=== PATIENT | female | born 1995 | race Caucasian/White ===

== ENCOUNTER 2022-03-22 12:09 | Outpatient (CLI) | payer BC, SELFPAY ==
[2022-03-22 19:00] LABS: Hematocrit 48.3 % (37.0-47.0); Hemoglobin 15.5 g/dL (12.0-15.0); Mean Corpuscular HGB Conc 32.1 g/dl (32-36); Mean Corpuscular Hemoglobin 28.4 pg (26-34); Mean Corpuscular Volume 88.6 fl (80-100); Mean Platelet Volume 12.1 fl (7.4-10.4); Platelet Count Result 279 k/mm3 (150-375); Red Blood Count 5.45 M/mm3 (4.2-5.4); White Blood Count 12.2 K/mm3 (4.5-10.0)
[2022-03-22 19:13] LABS: Alanine Aminotransferase 31 U/L (6-35); Albumin Level 4.4 g/dL (3.5-5.1); Alkaline Phosphatase 101 U/L (38-126); Anion Gap 9 mmol/L (8-16); Aspartate Amino Transferase 35 U/L (14-36); Bilirubin,Total 0.6 mg/dL (0.2-1.3); Blood Urea Nitrogen 8 mg/dL (7-17); Calcium 9.1 mg/dL (8.4-10.2); Carbon Dioxide 24 mmol/L (22-30); Chloride 107 mmol/L (98-107); Cholesterol 177 mg/dL (0-200); Estimated Glomerular Filt Rate > 60; Glucose 87 mg/dL (65-110); HDL Direct 40 mg/dL; Potassium 4.1 mmol/L (3.4-5.0); Sodium 140 mmol/L (137-145); Triglycerides 222 mg/dL (<150)
[2022-03-22 19:24] LABS: LDL Cholesterol Direct 89 mg/dL
[2022-03-22 19:31] LABS: Hemoglobin A1C 4.8 % (<5.7)
[2022-03-22 19:37] LABS: Thyroid Stimulating Hormone 0.735 uIU/mL (0.465-4.680)
== END 2022-03-22 12:10 | disposition home or self-care (01) ==
PROVIDERS: PCP Family Medicine; Visit Provider Family Medicine
DX: O24.419 Gestational diabetes mellitus in pregnancy, unspecified control (principal); K58.9 Irritable bowel syndrome, unspecified
CPT/HCPCS: 36415; 80053; 80061; 83036; 84443; 85027

== ENCOUNTER 2022-04-07 14:16 | Outpatient (CLI) | payer BC, SELFPAY ==
[2022-04-20 18:52] LABS: Pancreatic Elastase, Stool >500 mcg/g
== END 2022-04-07 14:17 | disposition home or self-care (01) ==
LOC: ANHBWCLAB 14:18
PROVIDERS: PCP Family Medicine; Visit Provider Family Medicine
DX: D75.1 Secondary polycythemia (principal)
CPT/HCPCS: 82653

== ENCOUNTER 2022-12-18 13:12 | Outpatient (CLI) | payer BC, SELFPAY ==
[2022-12-18 19:23] LABS: Hematocrit 47.1 % (37.0-47.0); Hemoglobin 14.9 g/dL (12.0-15.0); Mean Corpuscular HGB Conc 31.6 g/dl (32-36); Mean Corpuscular Hemoglobin 28.5 pg (26-34); Mean Corpuscular Volume 90.1 fl (80-100); Mean Platelet Volume 11.6 fl (7.4-10.4); Platelet Count Result 227 k/mm3 (150-375); Red Blood Count 5.23 M/mm3 (4.2-5.4); Red Cell Distribution Width 12.9 % (11.5-14.5); White Blood Count 7.7 K/mm3 (4.5-10.0)
[2022-12-18 19:29] LABS: Alanine Aminotransferase 53 U/L (6-35); Albumin Level 4.5 g/dL (3.5-5.1); Alkaline Phosphatase 87 U/L (38-126); Anion Gap 10 mmol/L (8-16); Aspartate Amino Transferase 61 U/L (14-36); Bilirubin,Total 0.7 mg/dL (0.2-1.3); Blood Urea Nitrogen 6 mg/dL (7-17); Calcium 9.2 mg/dL (8.4-10.2); Carbon Dioxide 24 mmol/L (22-30); Chloride 105 mmol/L (98-107); Estimated Glomerular Filt Rate > 60; Glucose 85 mg/dL (65-110); Potassium 3.9 mmol/L (3.4-5.0); Sodium 139 mmol/L (137-145)
[2022-12-18 23:41] LABS: Hemoglobin A1C 4.7 % (<5.7)
[2022-12-20 21:36] LABS: Insulin Level Total 27.7 uIU/mL (<=18.4)
[2022-12-28 00:47] LABS: Free Insulin 22.2 uIU/mL (1.5-14.9)
== END 2022-12-18 13:13 | disposition home or self-care (01) ==
LOC: ANHBWCLAB 13:13
PROVIDERS: PCP Nurse Practitioner Adult Health; Visit Provider Nurse Practitioner Adult Health
DX: R63.5 Abnormal weight gain (principal); Z86.32 Personal history of gestational diabetes
CPT/HCPCS: 36415; 80053; 83036; 83525; 83527; 84443; 85027

== ENCOUNTER 2023-02-28 14:11 | Emergency (ER) | payer BC, SELFPAY ==
[2023-02-28 14:22] VITALS: BP 126/71; PULSE 92; RESP 18; TEMP 36.7; O2SAT 99
--- NOTE | 2023-02-28 14:27 | ED.GENADULT ---
HPI - General Adult General Chief complaint: Nausea/Vomiting/Diarrhea Stated complaint: Nausea/Dizziness Source: patient, RN notes reviewed and old records reviewed Mode of arrival: ambulatory Limitations: no limitations History of Present Illness HPI narrative: 27-year-old female presents to [facility] with complaints of cough, congestion, nausea, vomiting, myalgia, fatigue this started yesterday. Patient states was exposed to influenza A. Patient denies weakness, chest pain, shortness of breath MD complaint: cough, congestion Onset (ago): day(s) (1) Related Data Home Medications Medication Instructions Recorded Confirmed alprazolam 0.5 mg tablet 0.5 mg PO DAILY PRN Anxiety 02/28/23 02/28/23 pantoprazole 40 mg tablet,delayed 40 mg PO BID 02/28/23 02/28/23 release Allergies Allergy/AdvReac Type Severity Reaction Status Date / Time Sulfa (Sulfonamide Allergy Unknown Anaphylactic Verified 12/11/22 15:01 Antibiotics) Shock Review of Systems Constitutional: Constitutional: Reports no additional constitutional complaints, Reports body ache(s), Denies chills, Reports fatigue, Denies fever(s) and Reports headache(s) Eyes: Eyes: Reports no additional eye complaints and Denies blurry vision ENT: Reports system reviewed and no additional complaints, except as documented, Denies vertigo, Denies dizziness, Denies ear discharge, Denies otalgia, Denies facial pain, Denies headache(s), Reports nasal congestion, Denies nasal discharge, Denies sinus pain, Denies sinus pressure and Denies sore throat Cardiovascular: Cardiovascular: Reports no additional cardiovascular complaints, Denies chest pain, Denies chest pain at rest, Denies rapid heart rate and Denies dyspnea Respiratory: Respiratory: Reports no additional respiratory complaints, Denies chest congestion, Reports cough, Denies pain on inspiration, Denies pain with cough and Denies dyspnea Gastrointestinal: Gastrointestinal: Denies abdominal pain, Reports diarrhea, Reports nausea and Reports vomiting Integumentary/Breasts: Skin/Breast: Denies rash Neurologic: Reports system reviewed and no additional complaints, except as documented, Denies vertigo, Denies dizziness and Denies headache(s) Endocrine: Endocrine: Denies fatigue [facility] Family History Family History Father Diabetes mellitus Disorder of thyroid Mother Asthma Depression Grandparent Cancer of pancreas Diabetes mellitus Grandparent Breast cancer Thyroid cancer Diabetes mellitus Depression Cerebrovascular accident Social History Social History Smoking status: Never smoker Alcohol use details: Red Wine occasionally Substance use: never Substance use type: does not use Lack of Transportation: No Lack of Food: Never True Current Housing: I Have Housing Concerned About Future Housing: No Difficulty Paying Gas/Electric Bills: No Difficulty Paying for Meds: No Currently Unemployed: No Education: Trade/Vocational Certificate Difficulty w/ Childcare or Family Care: No Living arrangements: with family Occupation/Education: occupation 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 There is no relevant family history pertinent to the patient complaint. Exam Const: General: cooperative, healthy appearing, no acute distress and well nourished Nutritional Appearance: well nourished Orientation/consciousness: patient oriented x3 Limitations: no limitations HENMT: Head: normal to inspection and normocephalic Ears: external ears normal, TM's normal bilaterally, mastoids normal and Abnormal EAC present Face/Nose/Sinus: normal facial exam Face and sinus: normal facial exam Mouth: Yes Normal oral a
== END 2023-02-28 14:55 | disposition home or self-care (01) ==
PROVIDERS: Emergency Provider Registered Nurse; PCP Family Medicine
DX: K52.9 Noninfective gastroenteritis and colitis, unspecified (principal); B34.9 Viral infection, unspecified; J02.0 Streptococcal pharyngitis; Z20.822 Contact with and (suspected) exposure to COVID-19
CPT/HCPCS: 81025; 87081; 87147; 87426; 87804; 87880; 99213; C9803; G0463

== ENCOUNTER 2023-06-17 17:56 | Emergency (ER) | payer BC, SELFPAY ==
[2023-06-17 18:06] VITALS: BP 127/74; PULSE 96; RESP 20; TEMP 36.8; O2SAT 100
--- NOTE | 2023-06-17 18:55 | ED.GENADULT ---
HPI - General Adult General Chief complaint: Eye Problems Stated complaint: Eye Swelling Source: patient Mode of arrival: ambulatory Limitations: no limitations History of Present Illness HPI narrative: Patient presents for evaluation of an allergic reaction. She indicates she has had allergic reactions to her eye makeup in the past. Yesterday she applied the makeup around noon and felt swelling to her eyes shortly thereafter. She removed the makeup around 6:00 p.m. yesterday. She woke from sleep this morning with her bilateral upper eyelids erythematous and swollen. She denies any visual disturbance. She has been taking Benadryl for symptoms. She reports some improvement since starting the Benadryl. She reports associated itching. In the past she has responded favorably to systemic steroids. Related Data Home Medications Medication Instructions Recorded Confirmed alprazolam 0.5 mg tablet 0.5 mg PO DAILY PRN Anxiety 02/28/23 06/17/23 buspirone 7.5 mg tablet 7.5 mg PO BID 06/17/23 06/17/23 Allergies Allergy/AdvReac Type Severity Reaction Status Date / Time Sulfa (Sulfonamide Allergy Unknown Anaphylactic Verified 06/17/23 18:31 Antibiotics) Shock Review of Systems Review of Systems: CONSTITUTIONAL: Denies fever, chills, or sweats. EYES: Reports swelling to bilateral upper eyelids. Denies visual changes, redness, or discharge. ENT: Denies rhinorrhea, congestion, sore throat, or otalgia. CARDIOVASCULAR: Denies chest pain, palpitations, or edema. RESPIRATORY: Denies cough or dyspnea. GASTROINTESTINAL: Denies abdominal pain, nausea, vomiting, or diarrhea. GENITOURINARY: Denies dysuria or hematuria. SKIN: Reports itching and redness to the bilateral upper eyelid MUSCULOSKELETAL: Denies back pain, joint pain, or myalgia. NEUROLOGIC: Denies headache, numbness, dizziness, or weakness. PSYCHIATRIC: Denies anxiety or depression. [facility] Past Medical History Medical History OCD (obsessive compulsive disorder) Surgical History Surgical History No pertinent past surgical history Family History Family History Father Diabetes mellitus Disorder of thyroid Mother Asthma Depression Grandparent Cancer of pancreas Diabetes mellitus Grandparent Breast cancer Thyroid cancer Diabetes mellitus Depression Cerebrovascular accident Social History Social History Smoking status: Never smoker Alcohol use details: Red Wine occasionally Substance use: never Substance use type: does not use Lack of Transportation: No Lack of Food: Never True Current Housing: I Have Housing Concerned About Future Housing: No Difficulty Paying Gas/Electric Bills: No Difficulty Paying for Meds: No Currently Unemployed: No Education: Trade/Vocational Certificate Difficulty w/ Childcare or Family Care: No Living arrangements: with family Occupation/Education: occupation 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 HEAD: Normocephalic, atraumatic. EYES: PERRLA and EOMI. There is swelling noted to the bilateral upper eyelids. ENT: Nares clear, no rhinorrhea or epistaxis. Mucous membranes moist. Oropharynx without tonsillar hypertrophy exudate or other lesions. Bilateral TMs pearly tolbert nonbulging NECK: Supple. No adenopathy or masses. No carotid bruits or JVD CHEST: Clear to auscultation. No respiratory distress. No wheezes rales or rhonchi HEART: Regular rate and rhythm. No murmur heard. Normal peripheral pulses. ABDOMEN: Soft, nontender, nondistended, normal active bowel sounds. EXTREMITIES: Normal range of motion. No edema. SKIN: Warm, dry, no rash. There is erythema noted to bilateral upper eyelids. NEURO: No focal deficits. Alert and oriented x3. PSYCH: Normal mood and affect. Course Course Emergency Course: This is a 27-year-old female who presented for evaluation of an allergic reaction to make up with a similar response historically the responded favorably to steroids. She was given an injection of Solu-Medrol while here and will discharge her with prednisone. It does not appear that she has periorbital cellulitis but I recommended we give her prescription for antibiotics in the event that her symptoms do not respond to prednisone completely. She would like to wait on starting nose as she has a history of C diff and was recently treated with oral vancomycin. We agreed to provide her with a prescription for cephalexin which she can take if her symptoms worsen. Otherwise she will follow-up with her primary care provider and go to the emergency department for worsening symptoms. She can continue to take benadryl for the redness, itching and swelling. Patient is in agreement with plan of care. Level of Care: Express Care Visit Vital Signs Vital signs: Vital Signs Temperature 36.8 C 06/17/23 18:06 Pulse Rate 96 06/17/23 18:06 Respiratory Rate 20 06/17/23 18:06 Blood Pressure 127/74 06/17/23 18:06 Pulse Oximetry 100 06/17/23 18:06 Oxygen Delivery Room Air 06/17/23 18:06 Temperature 36.8 C 06/17/23 18:06 Pulse Rate 96 06/17/23 18:06 Respiratory Rate 20 06/17/23 18:06 Blood Pressure 127/74 06/17/23 18:06 Pulse Oximetry 100 06/17/23 18:06 Oxygen Delivery Room Air 06/17/23 18:06 Medical Decision Making Vital Signs Vital Signs: Vital Signs Temperature 36.8 C 06/17/23 18:06 Pulse Rate 96 06/17/23 18:06 Respiratory Rate 20 06/17/23 18:06 Blood Pressure 127/74 06/17/23 18:06 Pulse Oximetry 100 06/17/23 18:06 Oxygen Delivery Room Air 06/17/23 18:06 Temperature 36.8 C 06/17/23 18:06 Pulse Rate 96 06/17/23 18:06 Respiratory Rate 20 06/17/23 18:06 Blood Pressure 127/74 06/17/23 18:06 Pulse Oximetry 100 06/17/23 18:06 Oxygen Delivery Room Air 06/17/23 18:06 Discharge Plan Discharge Clinical Impression: Allergic reaction Patient Disposition: Home, Self-Care Condition: Stable Instructions: Antibiotic Form, Allergies (ED) Patient Language: Tamazight Prescriptions: New prednisone 20 mg tablet 40 mg PO DAILY 5 Days Qty: 10 0RF cephalexin 500 mg capsule 500 mg PO Q6H 10 Days Qty: 40 0RF No Action alprazolam 0.5 mg tablet 0.5 mg PO DAILY PRN (Reason: Anxiety) buspirone 7.5 mg tablet 7.5 mg PO BID Rx Instructions: TAKE 1 TABLET BY MOUTH TWICE A DAY pantoprazole 20 mg tablet,delayed release (DR/EC) 20 mg PO QAM Qty: 90 1RF hydroxyzine HCl 25 mg tablet See Rx Instructions .ROUTE .COMPLEX Qty: 180 0RF Dose Instruction: TAKE 1 TABLET BY MOUTH TWICE A DAY NEEDED FOR PANIC ATTACK Rx Instructions: TAKE 1 TABLET BY MOUTH TWICE A DAY NEEDED FOR PANIC ATTACK Follow-up/Referrals: Darinel Knott MD [Primary Care Provider] - Time of Disposition: 18:55
[2023-06-17] MEDS: methylPREDNISolone SOD SUCC 125 MG VIAL IM (18:58)
== END 2023-06-17 19:15 | disposition home or self-care (01) ==
PROVIDERS: Emergency Provider Nurse Practitioner; PCP Family Medicine
DX: T78.49XA Other allergy, initial encounter (principal)
CPT/HCPCS: 96372; 99213; G0463; J2919

== ENCOUNTER 2023-07-24 15:31 | Emergency (ER) | payer BC, SELFPAY ==
[2023-07-24 15:34] VITALS: BP 124/75; PULSE 84; RESP 20; TEMP 36.5; O2SAT 99
--- NOTE | 2023-07-24 16:00 | ED.FEMALEGU ---
HPI - Female Genitourinary General Chief complaint: Urogenital-Female Stated complaint: Poss yeast infection Time Seen by Provider: 07/24/23 15:55 Source: patient Mode of arrival: ambulatory Limitations: no limitations History of Present Illness HPI Narrative: 27 year old female who presents to express care it complaints of perineal burning with white thick vaginal drainage, itchy which started on Sunday. Patient reports that she had vaginal ultrasound on and then her symptoms started on Sunday. Patient denies any urinary symptoms no frequency or urgency of urination. Patient reports that he took AZO OTC for yeast infections that helps with burning and itching. Patient denies any concern for STD's.Patient reports no fever chills or sweats, denies any nausea or vomiting. States she had a yeast infection previously after taking an antibiotic with similar symptoms as she presently has. MD elicited complaint: UTI Onset (ago): day(s) (5) Location of symptoms: perineum Severity: moderate Vaginal discharge: white and thick/cheesy Vaginal bleeding: none Treatment prior to arrival: other (AZO for yeast infections) Related Data Home Medications Medication Instructions Recorded Confirmed medroxyprogesterone 10 mg tablet See Rx Instructions .Route .COMPLEX 07/24/23 07/24/23 Allergies Allergy/AdvReac Type Severity Reaction Status Date / Time Sulfa (Sulfonamide Allergy Unknown Anaphylactic Verified 07/24/23 15:37 Antibiotics) Shock Review of Systems Review of Systems: CONSTITUTIONAL: Denies fever, chills, or sweats. CARDIOVASCULAR: Denies chest pain, palpitations, or edema. RESPIRATORY: Denies cough or dyspnea. GASTROINTESTINAL: Denies abdominal pain, nausea, vomiting, or diarrhea. GENITOURINARY: Reports no dysuria, frequency, urgency. Denies flank pain or hematuria. Positive for white thick vaginal discharge which is itchy SKIN: Denies rash or itching. MUSCULOSKELETAL: Denies back pain or myalgia. Denies CVA tenderness NEUROLOGIC: Denies headache All systems reviewed & are unremarkable except as noted in HPI and below PMFSH Past Medical History Medical History (Updated 07/24/23 @ 16:25 by Trinidad Qunitana NP) IBS (irritable bowel syndrome) OCD (obsessive compulsive disorder) Yeast infection of the vagina Surgical History Surgical History No pertinent past surgical history Family History Family History Father Diabetes mellitus Disorder of thyroid Mother Asthma Depression Grandparent Cancer of pancreas Diabetes mellitus Grandparent Breast cancer Thyroid cancer Diabetes mellitus Depression Cerebrovascular accident Social History Social History Smoking status: Never smoker Alcohol use details: Red Wine occasionally Substance use: never Substance use type: does not use Lack of Transportation: No Lack of Food: Never True Current Housing: I Have Housing Concerned About Future Housing: No Difficulty Paying Gas/Electric Bills: No Difficulty Paying for Meds: No Currently Unemployed: No Education: Trade/Vocational Certificate Difficulty w/ Childcare or Family Care: No Living arrangements: with family Occupation/Education: occupation 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 There is no relevant family history pertinent to the presenting complaint Exam Narrative: GENERAL: Well-appearing, well-nourished, and in no acute distress. HEAD: Normocephalic, atraumatic. NECK: Supple. no lymphadenopathy CHEST: Clear to auscultation. No respiratory distress. HEART: Regular rate and rhythm. No murmur heard. Normal peripheral pulses. ABDOMEN: Soft, nontender, n
== END 2023-07-24 16:15 | disposition home or self-care (01) ==
PROVIDERS: Emergency Provider Registered Nurse; PCP Family Medicine
DX: B37.31 Acute candidiasis of vulva and vagina (principal)
CPT/HCPCS: 99213; G0463

== ENCOUNTER 2023-10-02 07:37 | Emergency (ER) | payer BC, SELFPAY ==
[2023-10-02 07:40] VITALS: BP 108/83; PULSE 78; RESP 16; O2SAT 98
[2023-10-02 07:58] LABS: BEDSIDEPREGUCG Negative
[2023-10-02 08:01] LABS: Basophils Percent Auto 0.3 % (0.2-1.2); Eosinophils Absolute Auto 0.2 K/mm3 (0-0.3); Eosinophils Percent Auto 2.3 % (0-4.4); Hematocrit 44.7 % (37.0-47.0); Hemoglobin 14.8 g/dL (12.0-15.0); Immature Granulocyte Absolute 0.04 K/mm3 (0.00-0.031); Immature Granulocyte Percent A 0.5 % (0-0.5); Lymphocytes Absolute Auto 1.55 K/mm3 (0.9-3.2); Lymphocytes Percent Auto 20.2 % (18.3-44.2); Mean Corpuscular HGB Conc 33.1 g/dl (32-36); Mean Corpuscular Hemoglobin 29.7 pg (26-34); Mean Corpuscular Volume 89.6 fl (80-100); Mean Platelet Volume 11.8 fl (7.4-10.4); Monocytes Absolute Auto 0.4 K/mm3 (0.1-0.6); Monocytes Percent Auto 4.9 % (2.6-8.5); Neutrophils Absolute Auto 5.5 K/mm3 (1.3-6.7); Neutrophils Percent Auto 71.8 % (45.5-73.1); Platelet Count Result 223 k/mm3 (150-375); Red Blood Count 4.99 M/mm3 (4.2-5.4); Red Cell Distribution Width 12.6 % (11.5-14.5); White Blood Count 7.7 K/mm3 (4.5-10.0)
[2023-10-02 08:08] LABS: Add Urine Microscopic? YES; Appearance Urine Clear (Clear); Bacteria Urine Rare /hpf; Bilirubin Urine Negative (Negative); Blood Urine Negative (Negative); Color Urine Dark Yellow (Yellow); Glucose Urine UA Negative (Negative); Ketones Urine Negative (Negative); Leukocyte Esterase Ur 1+ LEU/UL (Negative); Nitrate Urine Positive (Negative); Non Pathogenic Casts 0-2; Protein Urine Negative (Negative); RBC Urine 0-2 /hpf (0-2); Specific Grav Ur 1.018 (1.001-1.035); Squamous Epithelial Cell Urine None Seen /hpf (Few)
[2023-10-02 08:22] LABS: Alanine Aminotransferase 35 U/L (6-35); Albumin Level 4.5 g/dL (3.5-5.1); Alkaline Phosphatase 76 U/L (38-126); Anion Gap 10 mmol/L (4-12); Aspartate Amino Transferase 27 U/L (14-36); Bilirubin,Total 0.8 mg/dL (0.2-1.3); Blood Urea Nitrogen 18 mg/dL (7-17); Carbon Dioxide 26 mmol/L (22-30); Chloride 100 mmol/L (98-107); Estimated CRCL calculation 91 ml/min; Estimated Glomerular Filt Rate > 60; Glucose 101 mg/dL (65-110); Potassium 4.1 mmol/L (3.4-5.0); Sodium 136 mmol/L (137-145)
--- NOTE | 2023-10-02 08:56 | ED.ABDPAIN ---
HPI - Abdominal Pain General Chief Complaint: Abdominal Pain Stated Complaint: L flank pain Time Seen by Provider: 10/02/23 07:42 History of Present Illness HPI narrative: 28-year-old female presenting to the emergency department for evaluation for left flank pain. Patient had onset of left flank pain last night and onset of dysuria this morning. Patient does report a remote history of kidney stones. Related Data Home Medications Medication Instructions Recorded Confirmed medroxyprogesterone 10 mg tablet See Rx Instructions .Route .COMPLEX 07/24/23 07/24/23 Allergies Allergy/AdvReac Type Severity Reaction Status Date / Time Sulfa (Sulfonamide Allergy Unknown Anaphylactic Verified 10/02/23 07:43 Antibiotics) Shock Review of Systems Review of Systems: All systems reviewed & are unremarkable except as noted in HPI and below PMFSH Past Medical History Medical History (Updated 10/02/23 @ 09:00 by Nestor Morel MD) IBS (irritable bowel syndrome) OCD (obsessive compulsive disorder) Yeast infection of the vagina Surgical History Surgical History No pertinent past surgical history Family History Family History Father Diabetes mellitus Disorder of thyroid Mother Asthma Depression Grandparent Cancer of pancreas Diabetes mellitus Grandparent Breast cancer Thyroid cancer Diabetes mellitus Depression Cerebrovascular accident Social History Social History Smoking status: Never smoker Alcohol use details: Red Wine occasionally Substance use: never Substance use type: does not use Lack of Transportation: No Lack of Food: Never True Current Housing: I Have Housing Concerned About Future Housing: No Difficulty Paying Gas/Electric Bills: No Difficulty Paying for Meds: No Currently Unemployed: No Education: Trade/Vocational Certificate Difficulty w/ Childcare or Family Care: No Living arrangements: with family Occupation/Education: occupation 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 HEAD: normocephalic, atraumatic. EYES: PERRLA/EOMI, conjunctivae clear. NOSE: Normal no drainage EARS:TMS clear with good light reflex. THROAT: Pharynx clear, no exudate. NECK: Supple. No adenopathy, no masses. RESPIRATORY: Airway patent, respirations nonlabored. Clear to auscultation bilaterally, no rales, rhonchi, wheezing. CARDIOVASCULAR: Regular rate and rhythm without murmurs rubs or gallops. ABDOMINAL: Left CVA tenderness, suprapubic tenderness to palpation MUSCULOSKELETAL: Moves all extremities. Strength/ROM intact, No edema, No calf tenderness. NEURO: Alert. Cranial nerves II through XII intact. Grossly intact SKIN: Warm, dry. Normal Color Course Course Emergency Course: Patient was treated for urinary tract infection and discharged to home. Vital Signs Vital signs: Vital Signs Pulse Rate 78 10/02/23 07:40 Respiratory Rate 16 10/02/23 07:40 Blood Pressure 108/83 10/02/23 07:40 Pulse Oximetry 98 10/02/23 07:40 Pulse Rate 78 10/02/23 07:40 Respiratory Rate 16 10/02/23 07:40 Blood Pressure 108/83 10/02/23 07:40 Pulse Oximetry 98 10/02/23 07:40 MDM - Abdominal Pain MDM Narrative Medical decision making narrative: 28-year-old female present to the ED for evaluation of left flank pain with dysuria. Patient is afebrile with no leukocytosis and a stable hemoglobin of 14.8. Patient has no acute abnormalities on her CMP. Patient's UA is positive for nitrates leuk esterase and white blood cells with rare bacteria. Patient had no red blood cells. Patient states she does have remote history ureteral calculi approximately 10 years ago. Low co
[2023-10-02] MEDS: CEPHALEXIN 500 MG CAPSULE PO (09:06)
== END 2023-10-02 09:12 | disposition home or self-care (01) ==
PROVIDERS: Emergency Provider Emergency Medicine; PCP Family Medicine
DX: N39.0 Urinary tract infection, site not specified (principal)
CPT/HCPCS: 36415; 80053; 81001; 81025; 85025; 87077; 87086; 87088; 87186; 99283; A9270

== ENCOUNTER 2023-12-24 10:50 | Emergency (ER) | payer BC, SELFPAY ==
[2023-12-24 11:00] VITALS: BP 107/61; PULSE 76; RESP 15; TEMP 36.6; O2SAT 100
--- NOTE | 2023-12-24 11:47 | PC.NURSE ---
111 prior to triage patient informs staff she received a return call from her doctor, and has scheduled appt today. [facility] does not want to be seen here at this time.
== END 2023-12-24 11:15 | disposition left against medical advice (07) ==
PROVIDERS: Emergency Provider Registered Nurse; PCP Family Medicine
DX: Z53.21 Procedure and treatment not carried out due to patient leaving prior to being seen by health care provider (principal)
CPT/HCPCS: 99199

== ENCOUNTER 2024-02-22 10:21 | Emergency (ER) | payer BC, SELFPAY ==
[2024-02-22 10:27] VITALS: BP 116/73; PULSE 66; RESP 18; TEMP 36.6; O2SAT 100
[2024-02-22 11:10] LABS: EDSTREPNEGPOS1 Negative (Negative)
--- NOTE | 2024-02-22 11:27 | ED.URI ---
HPI - URI/Sore Throat General Chief Complaint: Upper Respiratory Infection Stated Complaint: Sore Throat Time Seen by Provider: 02/22/24 11:27 History of Present Illness HPI Narrative: 28-year-old female presented for complaint of sore throat. Onset yesterday afternoon. She also reports she had EGD 3 days ago. Patient denies associated nasal congestion, headache, nausea vomiting, fevers or chills. Endorses child with sick symptoms. Related Data Home Medications ?Medication ?Instructions ?Recorded ?Confirmed ?Last Taken ?Type famotidine 20 mg tablet 20 mg PO DAILY 01/01/24 01/01/24 Unknown History Allergies Allergy/AdvReac Type Severity Reaction Status Date / Time Sulfa (Sulfonamide Allergy Unknown Anaphylactic Verified 01/01/24 15:54 Antibiotics) Shock Review of Systems Review of Systems: CONSTITUTIONAL: Denies body aches, fever, chills, or sweats. EYES: Denies visual changes, redness, or discharge. ENT: reports sore throat Denies rhinorrhea, congestion, or otalgia. CARDIOVASCULAR: Denies chest pain, palpitations, or edema. RESPIRATORY: Denies dyspnea. GASTROINTESTINAL: Denies abdominal pain, nausea, vomiting, or diarrhea. SKIN: Denies rash MUSCULOSKELETAL: Denies back pain, joint pain, or myalgia. NEUROLOGIC: Denies headache PMFSH Past Medical History Medical History Yeast infection of the vagina OCD (obsessive compulsive disorder) IBS (irritable bowel syndrome) Surgical History Surgical History No pertinent past surgical history Family History Family History Father Diabetes mellitus Disorder of thyroid Mother Asthma Depression Grandparent Cancer of pancreas Diabetes mellitus Grandparent Breast cancer Thyroid cancer Diabetes mellitus Depression Cerebrovascular accident Social History Social History Smoking status: Never smoker Alcohol use details: Red Wine occasionally Substance use: never Substance use type: does not use Lack of Transportation: No Lack of Food: Never True Current Housing: I Have Housing Concerned About Future Housing: No Difficulty Paying Gas/Electric Bills: No Difficulty Paying for Meds: No Currently Unemployed: No Education: Trade/Vocational Certificate Difficulty w/ Childcare or Family Care: No Living arrangements: with family Occupation/Education: occupation 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 EYES: conjunctivae clear ENT: Mucous membranes moist. TM pearly tolbert with normal light reflex bilaterally; no tragal tenderness. Oropharynx erythematous without lesions. Tonsils Absent. No drooling, no hoarseness, no trismus, uvula midline. No tripod positioning, hot potato voice, or soft palate swelling. NECK: Supple. No lymphadenopathy CHEST: Clear to auscultation, breath sounds equal. No respiratory distress, speaks in full sentences. HEART: Regular rate and rhythm. No murmur heard. SKIN: Warm, dry, no rash. NEURO: Alert and oriented x3. Course Course Emergency Course: Patient is aware of diagnosis, understands and agrees to treatment plan. Anticipatory guidance given. Patient agrees to follow-up as directed and is aware of reasons to seek care at the emergency department. Portions of this record may have been created with voice recognition software Level of Care: Express Care Visit Vital Signs Vital signs: Vital Signs Temperature 97.9 F 02/22/24 10:27 Pulse Rate 66 02/22/24 10:27 Respiratory Rate 18 02/22/24 10:27 Blood Pressure 116/73 02/22/24 10:27 Pulse Oximetry 100 02/22/24 10:27 Oxygen Delivery Room Air 02/22/24 10:27 Temperature 97.9 F 02/22/24 10:27 Pulse Rate 66 02/22/24 10:27 Respiratory Rate 18 02/22/24 10:27 Blood Pressure 116/73 02/22/24 10:27 Pulse Oximetry 100 02/22/24 10:27 Oxygen Delivery Room Air 02/22/24 10:27 MDM - URI/Sore Throat MDM Narrative Medical decision making narrative: Neg strep result reviewed with pt. Symptoms may be 2/2 egd 3 days ago. Will culture. Advise supportive treatments. Patient is appropriate for outpatient treatment and follow-up. Differential Diagnosis Differential diagnosis: Likely upper respiratory infection, viral infection and pharyngitis Lab Data Labs: Lab Results 02/22/24 Range/Units 11:07 POC Grp A Strep Screen Negative (Negative) Discharge Plan Discharge Clinical Impression: Pharyngitis Patient Disposition: Home, Self-Care Condition: Stable Instructions: Antibiotic Form, Strep Throat (ED) Additional Instructions: Rapid strep swab was negative today You will be notified in a few days if the culture comes back positive for strep, and appropriate antibiotics will be called in at that time. if symptoms are due to a viral illness, it is not treated with antibiotics. Viral symptoms can be present for up to 10-14 days. Recommendations: Tylenol every 8 hours as needed for pain/fever Soft foods, cool liquids, warm tea. Gargle with warm saltwater twice a day. Chloraseptic spray and throat lozenges. Rest and stay hydrated. --Follow up with your PCP --Go to the ER immediately if you cannot swallow your saliva, trouble breathing/wheezing, throat swelling, pain is persistent and severe Patient Language: Persian Prescriptions: No Action famotidine 20 mg tablet 20 mg PO DAILY Follow-up/Referrals: Darinel Knott MD [Primary Care Provider] - Time of Disposition: 11:32
== END 2024-02-22 11:37 | disposition home or self-care (01) ==
PROVIDERS: Emergency Provider Nurse Practitioner Family; PCP Family Medicine
DX: J02.9 Acute pharyngitis, unspecified (principal)
CPT/HCPCS: 87081; 87880; 99213; G0463

== ENCOUNTER 2024-05-01 07:10 | Emergency (ER) | payer BC, SELFPAY ==
--- NOTE | ~2024-05-01 | CT_ITS ---
EXAMINATION: CT abdomen pelvis w con DATE: 05/01/2024 09:33 INDICATION: Right lower quadrant abdominal pain TECHNIQUE: Computed tomography (CT) of the abdomen and pelvis was performed with 100 mL Omnipaque-350 intravenous contrast. Automated exposure control and iterative reconstruction technique were employe d. The dose-length product was 505.39 mGy-cm. COMPARISON: None FINDINGS: Minimal dependent atelectasis in the lower lobes. Heart size is normal. No pericardial or pleural eff usion. Focal hepatic steatosis at the ligamentum teres. Mild central intrahepatic biliary ductal dila tion and mild dilation the common bile duct 8 mm, both findings which within normal limits post emery cystectomy with surgical clips the gallbladder fossa. Pancreas, spleen, left kidney and bilateral adr enal glands are normal. 1.2 cm right renal cyst. There are few scattered clonic diverticula without a djacent from trace stranding to suggest diverticulitis. No bowel obstruction. Mild wall thickening an d prominent mucosal hyperemia at the terminal ileum without appreciable surrounding inflammatory stra nding consistent with mild terminal ileitis which raises suspicion of Crohn's disease but could also be infectious in etiology. The appendix and remainder of the small bowels are normal. Bladder is norm al. Thin peripheral soft tissue density rim surrounding a 10 mm macroscopic fat attenuation nodule al ryne the dorsal surface of the right posterior lower uterine segment which could represent a lipoma or small region of chronic fat necrosis. Uterus and bilateral adnexa are otherwise unremarkable. No abs cess or free intraperitoneal gas or fluid. No pathologically enlarged abdominal or pelvic lymphadenop athy. Bones are unremarkable. IMPRESSION: 1. Mild terminal ileitis most suspicious for Crohn's disease but with differential including infectio n. Reviewed, dictated and finalized at location [facility] IMPRESSION: 1. Mild terminal ileitis most suspicious for Crohn's disease but with different ial including infection.
--- NOTE | ~2024-05-01 | US_ITS ---
EXAMINATION: US pelvic complete w TV DATE: 05/01/2024 08:36 INDICATION: Pelvic pain. Ovarian torsion. TECHNIQUE: Multiple transabdominal and transvaginal sonographic images of the pelvis were obtained. COMPARISON: None. FINDINGS: TRANSABDOMINAL ULTRASOUND: The uterus measures 7.7 x 3.9 x 4.9 cm. There is no free fluid in the pelvis. TRANSVAGINAL ULTRASOUND: The endometrial complex measures 9 mm in thickness. The right ovary measures 4.4 x 2.6 x 2.3 cm. The left ovary measures 3.6 x 2.7 x 2.1 cm. There is normal vascular flow in the ovaries. IMPRESSION: 1. Normal pelvis. Reviewed, dictated and finalized at location [] ICULTURAL NURSERY ASSISTANT IMPRESSION: 1. Normal pelvis.
--- OUTSIDE RECORDS SUMMARY | 2024-05-01 07:13 | XMS_ITS | Clinical Summary ---
Author Organization [facility] Address [facility] [place] [address] Care Team Providers Care Chief Port Director Name Role Phone Darinel Knott MD Primary Care Provider [phone] Allergies Active Allergy Reactions Criticality Noted Date Comments Sulfa Antibiotics Unknown 06/04/2015 Medications fluticasone propionate 50 MCG/ACT nasal sprayIndication s:Dysfunction of left eustachian tube 2 sprays by Each Nostril route daily. 15.8 mL 02/21/2019 Active ALPRAZolam (XANAX) 0.5 MG tablet Take 1 tablet (0.5 mg total) by mouth daily as needed. 03/21/2021 Active medroxyPROGESTE Rj (DEPO-PROVERA) injection 12/07/2021 Active methylPREDNISol one, PHAN, (MEDROL DOSEPAK) 4 MG tablet Take 1 tablet (4 mg total) by mouth daily. 6 TABLETS ON DAY ONE, 5 TABLETS DAY TWO, 4 TABLETS DAY THREE, 3 TABLETS DAY FOUR, 2 TABLETS DAY FIVE, AND 1 TABLET DAY SIX 1 each 03/08/2022 Active busPIRone (BUSPAR) 7.5 MG tablet Take 1 tablet (7.5 mg total) by mouth 2 (two) times daily. Active pantoprazole EC (PROTONIX) 20 MG tablet 20 MG ORALLY EVERY MORNING 02/28/2023 Active Active Problems No known active problems Immunizations Name Administration Dates Next Due Dtap (Generic) 12/06/1995, 6,03/27/1995,01/23/1995 ,1994 HPV 11/27/2007 Hepatitis A Vaccine - 2 Dose 10/01/2006 Hepatitis B 03/27/1995,1994,1994 Hib Vaccine, Prp-Omp 12/06/1995,03/27/1995,01/23,1994 MMR (Generic) 10/13/1998,12/06/1995 Meningococcal Vac A,C,Y,W-135 Sc 11/27/2007 Opv 10/13/1998,12/06/1995,01/23/1995 ,1994 Tdap (Generic) 09/08/2015,10/01/2006 Family History Medical History Relation Comments Diabetes Father stomach issues Father Pancreas Disease Maternal Grandfather No Known Problems Mother Relation Status Comments Brother Alive Father Alive Maternal Grandfather Mother Alive Social History Tobacco Use Types Packs/Day Years Used Date Smoking Tobacco: Never Passive Smoke Exposure: Current Smokeless Tobacco: Never Tobacco Cessation:Counseling Given: No Alcohol Use Standard Drinks/Week Comments Yes 0 (1 standard drink = 0.6 oz pur e alcohol) socially AUDIT-C Answer Date Recorded Frequency of Alcohol Consumption Never 10/31/2018 Average Number of Drinks Not on file 019 Frequency of Binge Drinking Not on file 06/2018 PHQ-2 Answer Date Recorded Patient Health Questionnaire-2 Score 0 03/28/2023 Comments No Sex and Gender Information Value Date Recorded Sex Assigned at Not on file Legal Sex Female 4:46 PM CDT Gender Identity Not on file Sexual Orientation Not on file Last Filed Vital Signs Vital Sign Reading Time Taken Comments Blood Pressure 116/74 03/28/2023 3:14 PM HEALTH AND SOCIAL CARE TEACHER Pulse 88 03/28/2023 3:14 PM HEALTH AND SOCIAL CARE TEACHER Temperature 36.5 C (97.7 F) 03/28/2023 3:14 PM HEALTH AND SOCIAL CARE TEACHER Respiratory Rate 18 03/28/2023 3:14 PM HEALTH AND SOCIAL CARE TEACHER Oxygen Saturation 100% 03/28/2023 3:14 PM HEALTH AND SOCIAL CARE TEACHER Inhaled Oxygen Concentration - - Weight 97.5 kg (215 lb) 03/28/2023 3:14 PM HEALTH AND SOCIAL CARE TEACHER Height 167.6 cm (5' 6 ) 03/28/2023 3:14 PM HEALTH AND SOCIAL CARE TEACHER Body Mass Index 34.7 03/28/2023 3:14 PM HEALTH AND SOCIAL CARE TEACHER Plan of Treatment Health Maintenance Due Date Last Done Comments Cervical Cancer Screening Pap Smear (Age 21 to 29) Every 3 Years 1994 Cervical Cancer Screening 1994 Annual Physical 1997 HPV Vaccines (2 - 2-dose series) 05/27/2008 11/27/2007 Hepatitis C 2012 COVID-19 Vaccine ( - 2023- season) 2023 Influenza Adult (#1) 2023 PHQ-2 (Physician [place]) 02/27/2024 03/28/2023 PHQ-2 (Physician [place]) 03/28/2024 03/28/2023 DTaP, Tdap and Td Vaccines (7 - Td or Tdap) 09/07/2025 09/08/2015, 10/01/2006, 12/06/1995, Additional history exists Hepatitis B Vaccines Completed 03/27/1995, 1994, 1994 Meningococcal Vaccine Aged Out 11/27/2007 No ruben shekhar eligible based on patient's age to complete this topic Meningococcal B Vaccine Aged Out No l onger eligible based on patient's age to complete this topic Pneumococcal Vaccine: Pediatrics (0 to 5 Years) and At-Risk Patients (6 to 64 Years) Aged Out No longer eligible based on patient's age to complete this topic RSV Immunizations Under 20 Months Aged Out No longer eligible based on patient's age to complete this topic Additional Health Concerns Infection Onset Date Last Indicated MRSA 10/05/2016 10/05/2016 Insurance Care Teams Chief Port Director Relationship Specialty Start Date End Date Darinel Knott MD [address] [place] [address] PCP - General 12/25/22
--- OUTSIDE RECORDS SUMMARY | 2024-05-01 07:13 | XMS_ITS | Encounter Summary ---
Author Organization [facility] Address [facility] [place] [address] Care Team Providers Care Patient Service Coordinator Name Role Phone Darlene Long MD Primary Care Provider Unavailable None, Provider Primary Care Provider Unavaila Darinel Baugh MD Primary Care Provider [phone] Encounter Details Date Type Department Care Team (Late st Contact Info) Description 10/18/2015 Abstract [facility] Conversion Julio Morton MD [address] [id number] Social History Tobacco Use Types Packs/Day Years Used Date Smoking Tobacco: Never Assessed Comments Unknown Sex and Gender Information Value Date Recorded Sex Assigned at Not on file Legal Sex Female 4:46 PM CDT Gender Identity Not on file Sexual Orientation Not on file documented as of this encounter Miscellaneous Notes * Letter - Julio Morton MD - 10/18/2015 12:00 AM CDT Oct 18, 2015 Leonel Estrada [address] [place] [address] Dear Leonel Estrada, Thank you for choosing [facility] for your health care needs. We appreciate the opportunity to help you maintain your well being. You recently had a TB quantiferon gold test drawn and a varicella titer. Your TB results came back normal (negative) and your varicella results came back showing that you are immune . If you have any questions please feel free to call the office at [phone], Option #3or Option #1 to make an appointment to discuss these results. Respectfully Yours, Electronically Signed by: Julio Morton MD Cc: Patient?s Medical Record ER SCHEDULER documented in this encounter Plan of Treatment Not on file documented as of this encounter Visit Diagnoses Not on filedocumented in this encounter Additional Health Concerns Infection Onset Date Last Indicated Resolved Time MRSA 10/05/2016 10/05/2016 documented as of this encounter Care Teams Patient Service Coordinator Relationship Specialty Start Date End Date Md Generic Conversion, PCP - General 03/07/14 None, Provider, PCP - General 09/06/18 12/24/22 Darinel Knott MD [address] [place] [id number] PCP - General 12/25/22 documented as of this encounter
--- OUTSIDE RECORDS SUMMARY | 2024-05-01 07:13 | XMS_ITS | Encounter Summary ---
Author Organization [facility] Healthcare Address [address] [place] [address] Care Team Providers Care Director Of Communications Name Role Phone Gladis Blanco NP Primary Care Provider [phone] Encounter Details Date Type Department Care Team (Late st Contact Info) Description 04/30/2024 10:45 AM SHIPS OR BARGES LOADER [facility] [address] [facility] [place] [address] Abnormal finding on GI tract imaging; Crohn's disease with other complication, unspecified gastrointestinal tract location (HCC); High risk medications (not anticoagulants) long-term use; Need for vaccination for pneumococcus Social History Tobacco Use Types Packs/Day Years Used Date Smoking Tobacco: Never Smokeless Tobacco: Never AUDIT-C Answer Date Recorded Q1: How often do you have a drink containing alc ohol? Monthly or less 02/19/2024 Q2: How many drinks containi ng alcohol do you have on a typical day when you are drinking? 3 or 4 02/19/2024 Q3: How often do you have si x or more drinks on one occasion? Never 02/19/2024 Personal Safety Answer Date Recorded Have you ever been in or are you currently in a harmful physical or emotional relationship or is someone making you feel afraid or unsafe? Denies 02/19/2024 Comments No Sex and Gender Information Value Date Recorded Sex Assigned at Not on file Legal Sex Female 12:38 AM CDT Gender Identity Female 01/30/2024 9:10 PM SHIPS OR BARGES LOADER Sexual Orientation Not on file Occupation Industry Job Start Date Job End Date Not on file Not on file Not on file Not on file documented as of this encounter Plan of Treatment Pending Results Name Type Priority Associated Diagnoses Date /Time T-SPOT.TB Blood Microbiology Routine Abnormal finding on GI tract imaging Crohn's disease with other complication, unspecified gastrointestinal tract location (HCC) High risk medications (not anticoagulants) long-term use Need for vaccination for pneumococcus 04/30/2024 10:50 AM SHIPS OR BARGES LOADER documented as of this encounter Procedures Procedure Name Priority Date/Time Associated Diagnosis Comments EGFR Routine 04/30/2024 10:50 AM SHIPS OR BARGES LOADER Abnormal finding on GI tract imaging Crohn's disease with other complication, unspecified gastrointestinal tract location (HCC) High risk medications (not anticoagulants) long-term use Need for vaccination for pneumococcus DIFFERENTIAL AUTO Routine 04/30/2024 10: 50 AM SHIPS OR BARGES LOADER Abnormal finding on GI tract imaging Crohn's disease with other complication, unspecified gastrointestinal tract location (HCC) High risk medications (not anticoagulants) long-term use Need for vaccination for pneumococcus IRON PROFILE W/ IBC Routine 04/30/2024 1 0:50 AM SHIPS OR BARGES LOADER Abnormal finding on GI tract imaging Crohn's disease with other complication, unspecified gastrointestinal tract location (HCC) High risk medications (not anticoagulants) long-term use Need for vaccination for pneumococcus CBC WITH AUTO DIFFERENTIAL Routine 04/30/2024 10:50 AM SHIPS OR BARGES LOADER Abnormal finding on GI tract imaging Crohn's disease with other complication, unspecified gastrointestinal tract location (HCC) High risk medications (not anticoagulants) long-term use Need for vaccination for pneumococcus HEPATITIS B CORE ANTIBODY, TOTAL Routine 04/30/2024 10:50 AM SHIPS OR BARGES LOADER Abnormal finding on GI tract imaging Crohn's disease with other complication, unspecified gastrointestinal tract location (HCC) High risk medications (not anticoagulants) long-term use Need for vaccination for pneumococcus VITAMIN D 25 HYDROXY Routine 04/30/2024 10:50 AM SHIPS OR BARGES LOADER Abnormal finding on GI tract imaging Crohn's disease with other complication, unspecified gastrointestinal tract location (HCC) High risk medications (not anticoagulants) long-term use Need for vaccination for pneumococcus HEPATITIS B SURFACE ANTIBODY (IMMUNE STATUS) Routine 04/30/2024 10:50 AM SHIPS OR BARGES LOADER Abnormal finding on GI tract imaging Crohn's disease with other complication, unspecified gastrointestinal tract location (HCC) High risk medications (not anticoagulants) long-term use Need for vaccination for pneumococcus HEPATITIS B SURFACE ANTIGEN Routine 04/30/2024 10:50 AM SHIPS OR BARGES LOADER Abnormal finding on GI tract imaging Crohn's disease with other complication, unspecified gastrointestinal tract location (HCC) High risk medications (not anticoagulants) long-term use Need for vaccination for pneumococcus ERYTHROCYTE SEDIMENTATION RATE Routine 04/30/2024 10:50 AM SHIPS OR BARGES LOADER Abnormal finding on GI tract imaging Crohn's disease with other complication, unspecified gastrointestinal tract location (HCC) High risk medications (not anticoagulants) long-term use Need for vaccination for pneumococcus CRP (ACUTE PHASE) Routine 04/30/2024 10: 50 AM SHIPS OR BARGES LOADER Abnormal finding on GI tract imaging Crohn's disease with other complication, unspecified gastrointestinal tract location (HCC) High risk medications (not anticoagulants) long-term use Need for vaccination for pneumococcus FERRITIN Routine 04/30/2024 10:50 AM SHIPS OR BARGES LOADER Abnormal finding on GI tract imaging Crohn's disease with other complication, unspecified gastrointestinal tract location (HCC) High risk medications (not anticoagulants) long-term use Need for vaccination for pneumococcus VITAMIN B12 Routine 04/30/2024 10:50 AM SHIPS OR BARGES LOADER Abnormal finding on GI tract imaging Crohn's disease with other complication, unspecified gastrointestinal tract location (HCC) High risk medications (not anticoagulants) long-term use Need for vaccination for pneumococcus COMPREHENSIVE METABOLIC PANEL Routine 04/30/2024 10:50 AM SHIPS OR BARGES LOADER Abnormal finding on GI tract imaging Crohn's disease with other complication, unspecified gastrointestinal tract location (HCC) High risk medications (not anticoagulants) long-term use Need for vaccination for pneumococcus documented in this encounter Results * eGFR (04/30/2024 10:50 AM SHIPS OR BARGES LOADER) eGFR 89 >=60 mL/min/1. 73 m2 Comment: Interpretive Data Reference Interval Normal >/= 90 mL/min/1.73m2 Mildly decreased* 60 - 89 mL/min/1.73m2 Mildly to moderately decreased 45 - 59 mL/min/1.73m2 Moderately to severely decreased 30 - 44 mL/min/1.73m2 Severely decreased 15 - 29 mL/min/1.73m2 Kidney Failure < 15 mL/min/1.73m2 *Relative to young adult level Estimated glomerular filtration rate is determined by the 2020 CKD-EPI equation recommended by the National Kidney Foundation (A Unifying Approach to GFR Estimation: Recommendations of the NKF-ASK Task Force on Reassessing the Inclusion of Race in Diagnosing Kidney Disease, JASN 2020). The CKD-EPI equation should not be used for patients with unstable renal function and has not been validated in children and those over 70. Current interpretive data was last reviewed 2020. Blood 04/30/2024 10:5 0 AM SHIPS OR BARGES LOADER 04/30/2024 11:00 AM SHIPS OR BARGES LOADER us Gerald Medina MD LAB BLOOD ORDERABLES Final Result [facility] [address] [facility]. Department [place] [address] * (ABNORMAL) Differential, auto (04/30/2024 10:50 AM SHIPS OR BARGES LOADER) Neutrophil abs 7.8(H) 1.5 - 6.5 K/cumm Imm gran abs 0.1 0.0 - 0.1 K/cumm [facility] Lymphocyte abs 1.5 0.8 - 3.3 K/cumm [facility] Monocyte abs 0.6 0.2 - 0.8 K/cumm [facility] Eosinophil abs 0.0 0.0 - 0.5 K/cumm [facility] Basophil abs 0.0 0.0 - 0.1 K/cumm [facility] Neutrophil pct 77.8 % [facility] Comment: Interpretive Data Percent cell count reference ranges are not reported, since discordance with absolute values may lead to misinterpretation of CBC data. Current Interpretive Data was last revised on 2017. Imm gran pct 0.5 % SARAH ENGLAND Comment: Interpretive Data Percent cell count reference ranges are not reported, since discordance with absolute values may lead to misinterpretation of CBC data. Current Interpretive Data was last revised on 2017. Lymphocyte pct 14.7 % SARAH ENGLAND Comment: Interpretive Data Percent cell count reference ranges are not reported, since discordance with absolute values may lead to misinterpretation of CBC data. Current Interpretive Data was last revised on 2017. Monocyte pct 6.3 % SARAH ENGLAND Comment: Interpretive Data Percent cell count reference ranges are not reported, since discordance with absolute values may lead to misinterpretation of CBC data. Current Interpretive Data was last revised on 2017. Eosinophil pct 0.4 % SARAH ENGLAND Comment: Interpretive Data Percent cell count reference ranges are not reported, since discordance with absolute values may lead to misinterpretation of CBC data. Current Interpretive Data was last revised on 2017. Basophil pct 0.3 % SARAH ENGLAND Comment: Interpretive Data Percent cell count reference ranges are not reported, since discordance with absolute values may lead to misinterpretation of CBC data. Current Interpretive Data was last revised on 2017. Blood 04/30/2024 10:5 0 AM SHIPS OR BARGES LOADER 04/30/2024 11:00 AM SHIPS OR BARGES LOADER Gerald Medina MD LAB BLOOD ORDERABLES Final Result Performing Organization Address City/State/[facility] [place] Phone Number SARAH LALAWCH [id number] [facility]. Department [place] [address] * Hepatitis B surface antibody (immune status) Blood (04/30/2024 10:50 AM SHIPS OR BARGES LOADER) HBsAb (immune status) Nonreactive Comment: This result is consistent with a lack of immunity to Hepatitis B Virus when used in the setting of routine screening. Current interpretative data was last revised on 21 Testing performed by: [facility], [address] [place]., [address] Blood 04/30/2024 10:5 0 AM SHIPS OR BARGES LOADER 04/30/2024 1:14 PM SHIPS OR BARGES LOADER Gerald Medina MD LAB MICROBIOLOGY - GENERAL ORDERABLES Final Result Performing Organization Address [facility] de Phone Number SARAH [facility] [address] [address] [facility] [place] [address] * Hepatitis B Surface Antigen Blood (04/30/2024 10:50 AM SHIPS OR BARGES LOADER) Pathologist [facility] HepBsAg Nonreactive Nonreactive Comment:Testing performed by : [facility], [address] [place] [address]., [id number] Blood 04/30/2024 10:5 0 AM SHIPS OR BARGES LOADER 04/30/2024 5:44 PM SHIPS OR BARGES LOADER Gerald Medina MD LAB MICROBIOLOGY - GENERAL ORDERABLES Final Result Performing Organization Address [facility] de Phone Number SARAH B[facility] [address] [facility] Department [place] [address] * (ABNORMAL) Vitamin D 25 hydroxy (04/30/2024 10:50 AM SHIPS OR BARGES LOADER) [facility] Vitamin D 25-OH 20(L) 30 - 80 ng/mL Blood 04/30/2024 10:5 0 AM SHIPS OR BARGES LOADER 04/30/2024 11:00 AM SHIPS OR BARGES LOADER Gerald Medina MD LAB BLOOD ORDERABLES Final Result Performing Organization Address [facility] de Phone Number SARAH [facility] [address] [facility] [place] [address] * Vitamin B12 (04/30/2024 10:50 AM SHIPS OR BARGES LOADER) [facility] Vitamin B12 461 230 - 1,250 pg/mL Comment:Testing performed by : [facility], [address] [place] [address], [place]., [address] Blood 04/30/2024 10:5 0 AM SHIPS OR BARGES LOADER 04/30/2024 3:01 PM SHIPS OR BARGES LOADER Gerald Medina MD LAB BLOOD ORDERABLES Final Result Performing Organization Address [facility] Co de Phone Number SARAH LALAWCH [address] [facility] [place] [address] * (ABNORMAL) Ferritin (04/30/2024 10:50 AM SHIPS OR BARGES LOADER) Ferritin 216(H) 15 - 150 ng/mL Comment:Testing performed by : [facility], [address] [place] [address]., [id number] Blood 04/30/2024 10:5 0 AM SHIPS OR BARGES LOADER 04/30/2024 3:01 PM SHIPS OR BARGES LOADER Gerald Medina MD LAB BLOOD ORDERABLES Final Result Performing Organization Address [facility] de Phone Number SARAH LALACH [address] [facility] [place] [address] * Iron profile w/ IBC (04/30/2024 10:50 AM SHIPS OR BARGES LOADER) Pathologist [facility] Iron 104 35 - 145 mcg/dL Comment:Testing performed by : [facility], [address] [place] [address]., [id number] TIBC 269 250 - 400 mcg/dL SARAH ENGLAND Comment:Testing performed by : [facility], [address] [place] [address]., [id number] Transferrin saturation 39 20 - 50 % SARAH BJWYOLANDA Comment:Testing performed by : [facility], [address] [place] [address]., [id number] Blood 04/30/2024 10:5 0 AM SHIPS OR BARGES LOADER 04/30/2024 3:01 PM SHIPS OR BARGES LOADER Gerald Medina MD LAB BLOOD ORDERABLES Final Result Performing Organization Address City/[facility] Co de Phone Number SARAH LALAWCH [address] [facility] [place] [address] * Erythrocyte sedimentation rate (04/30/2024 10:50 AM SHIPS OR BARGES LOADER) Pathologist [facility] Erythrocyte sedimentation rate 15 1 - 20 mm/hr Blood 04/30/2024 10:5 0 AM SHIPS OR BARGES LOADER 04/30/2024 11:00 AM SHIPS OR BARGES LOADER Gerald Medina MD LAB BLOOD ORDERABLES Final Result Performing Organization Address [facility] Co de Phone Number SARAH LALACH [address] [facility] [place] [address] * (ABNORMAL) CRP (acute phase) (04/30/2024 10:50 AM SHIPS OR BARGES LOADER) [facility] CRP 11.2(H) <=10.0 mg/L Blood 04/30/2024 10:5 0 AM SHIPS OR BARGES LOADER 04/30/2024 11:00 AM SHIPS OR BARGES LOADER Gerald Medina MD LAB BLOOD ORDERABLES Final Result Performing Organization Address [facility] Co de Phone Number SARAH LALACH [address] [facility] [place] [address] * Comprehensive metabolic panel (04/30/2024 10:50 AM SHIPS OR BARGES LOADER) Pathologist [facility] Sodium 138 135 - 145 mmol/L Potassium, pl 4.2 3.3 - 4.9 mmol/L [facility] Chloride 100 97 - 110 mmol/L [facility] CO2 25 22 - 32 mmol/L [facility] Anion gap 13 2 - 15 mmol/L [facility] BUN 10 6 - 25 mg/dL [facility] Creatinine 0.90 0.60 - 1.10 mg/dL [facility] Glucose 101 70 - 199 mg/dL [facility] Comment: Interpretive Data Fasting glucose >/= 126 mg/dl is diagnostic for diabetes. Fasting is defined as no caloric intake for at least 8 hours. Fasting glucose between 100 mg/dl to 125 mg/dl is diagnostic of prediabetes. In a patient with classic symptoms of hyperglycemia or hyperglycemic crisis, a random glucose >/= 200 mg/dl is diagnostic for diabetes. In the absence of unequivocal hyperglycemia, results should be confirmed by repeat testing. The classification and Diagnosis of Diabetes Diabetes Care 2021; 46: S19-S40. Current interpretive data was last revised 2022. Calcium 10.1 8.5 - 10.3 mg/dL [facility] Bilirubin, total 1.1 0.1 - 1.2 mg/dL [facility] Protein, pl 7.9 6.5 - 8.5 g/dL [facility] Albumin 4.8 3.5 - 5.0 g/dL [facility] Alk phos 103 40 - 130 Units/L [facility] ALT 32 7 - 45 Units/L [facility] AST 23 10 - 45 Units/L [facility] Blood 04/30/2024 10:5 0 AM SHIPS OR BARGES LOADER 04/30/2024 11:00 AM SHIPS OR BARGES LOADER us Gerald Medina MD LAB BLOOD ORDERABLES Final Result [facility] [address] [facility]. Department [place] [address] * (ABNORMAL) CBC with auto differential (04/30/2024 10:50 AM SHIPS OR BARGES LOADER) WBC 10.1(H) 3.8 - 9.9 K/cumm Hgb 15.3 11.9 - 15.5 g/dL [facility] Hct 47.5(H) 35.6 - 45.5 % [facility] Plt 265 150 - 400 K/cumm [facility] MPV 11.3 9.1 - 12.3 fL [facility] RBC 5.35(H) 3.90 - 5.20 M/cumm [facility] MCV 88.8 81.3 - 96.4 fL [facility] MCH 28.6 27.1 - 33.3 pg [facility] MCHC 32.2(L) 32.3 - 35.7 g/dL [facility] RDW CV 12.8 11.1 - 14.9 % [facility] RDW SD 41.6 35.7 - 48.1 fL [facility] NRBC abs 0.00 0.00 - 0.01 K/cumm [facility] Blood 04/30/2024 10:5 0 AM SHIPS OR BARGES LOADER 04/30/2024 11:00 AM SHIPS OR BARGES LOADER Gerald Medina MD LAB BLOOD ORDERABLES Final Result Performing Organization Address City/[facility]/ZIP Co de Phone Number SARAH [facility] [address] [facility]. Department of [employer] [place], [place] [id number] * Hepatitis B core antibody, total Blood (04/30/2024 10:50 AM SHIPS OR BARGES LOADER) Hep B core IgG/IgM Nonreactive Nonreactive Comment:Testing performed by : [facility], [address] [place]., [address] Blood 04/30/2024 10:5 0 AM SHIPS OR BARGES LOADER 04/30/2024 1:14 PM SHIPS OR BARGES LOADER Gerald Medina MD LAB MICROBIOLOGY - GENERAL ORDERABLES Final Result Performing Organization Address [facility] Co de Phone Number [facility]AH [facility] [address] [facility] Department [place] [address] documented in this encounter Visit Diagnoses Diagnosis Abnormal finding on GI tract imaging Crohn's disease with other complication, unspecified gastrointestinal tract location (HCC) High risk medications (not anticoagulants) long-term use Encounter for long-term (current) use of other medications Need for vaccination for pneumococcus documented in this encounter Care Teams Director Of Communications Relationship Specialty Start Date End Date Gladis Blanco NP [address] [place] [address] PCP - General Nurse Practitioner 04/07/24 documented as of this encounter
--- OUTSIDE RECORDS SUMMARY | 2024-05-01 07:13 | XMS_ITS | Encounter Summary ---
Author Organization [facility] Address [address] [place] [address] Phone Care Team Providers Care Small Electric Engine Technician Name Role Phone CaryGladis allen FABIEN Primary Care Provider [phone] Reason for Referral * Consultation (Routine) - Pending Review Specialty Diagnoses / Procedures Referred By Contact Referred To Contact Diabetes and Nutrition Services Diagnoses Crohn's disease with other complication, unspecified gastrointestinal tract location (HCC) Gerald Medina MD [address] [place] [address] Phone: tel:[phone] fax:[phone] [facility] Gastroenterology [address] [facility] 12th [place] [address] [place] [address] Phone: tel: fax: Referral ID Status Reason Start Date Expiration Date Visits Requested Visits Authorized [id number] Pending Review Specialty Services Required 04/30/2024 05/30/2025 10 10 Question Answer Please select the performing region: [facility] (All Locations) [[id number]] Which [facility] division are you referring from? Gastroenterology (GI) Please select the performing department: [facility] 12[facility] [[id number]] [id number] Initial / Annual Follow-up MNT # of visits: 10 Comments Please schedule with Radha Wayne. Thanks! ATIENT CODER Reason for Visit * Consultation (Routine) - Authorized Specialty Diagnoses / Procedures Referred By Nj jerome Referred To Contact Gastroenterology Diagnoses Abnormal finding on GI tract imaging Crohn's disease with other complication, unspecified gastrointestinal tract location (HCC) Nadia Davis MD [address] [place] [address] Phone: tel: fax: [facility] (All Locations) Referral ID Status Reason Start Date Expiration Date Visits Requested Visits Authorized [id number] Authorized Specialty Services Required 04/01/2024 05/01/2025 99 99 Encounter Details Date Type Department Care Team (Latest Contact Info) Description 04/30/2024 9:30 AM OUTPATIENT CODER Office Visit [facility] Gastroenterology [address] [place] [address] Medical Office Building [address] [place] [address] Gerald Medina MD [address] [place] [address] High risk medications (not anticoagulants) long-term use (Primary Dx); Abnormal finding on GI tract imaging; Crohn's disease with other complication, unspecified gastrointestinal tract location (HCC); Need for vaccination for pneumococcus Social History Tobacco Use Types Packs/Day Years Used Date Smoking Tobacco: Never Smokeless Tobacco: Never Tobacco Cessation:Counseling Given: Not Answered AUDIT-C Answer Date Recorded Q1: How often [...] CDT Gender Identity Female 01/30/2024 9:10 PM OUTPATIENT CODER Sexual Orientation Not on file Occupation Industry Job Start Date Job End Date Not on file Not on file Not on file Not on file documented as of this encounter Last Filed Vital Signs Vital Sign Reading Time Taken Comments Blood Pressure 108/77 04/30/2024 9:21 AM OUTPATIENT CODER Pulse 86 04/30/2024 9:21 AM OUTPATIENT CODER Temperature 36.7 C (98 F) 04/30/2024 9:21 AM OUTPATIENT CODER Respiratory Rate - - Oxygen Saturation 100% 04/30/2024 9:21 AM OUTPATIENT CODER Inhaled Oxygen Concentration - - Weight 78.5 kg (173 lb) 04/30/2024 9:21 AM OUTPATIENT CODER Height 167.6 cm (5' 6 ) 04/30/2024 9:21 AM OUTPATIENT CODER Body Mass Index 27.92 04/30/2024 9:21 AM OUTPATIENT CODER documented in this encounter Plan of Treatment Pending Results Name Type Priority Associated Diagnoses Date /Time T-SPOT.TB Blood Microbiology Routine Abnormal finding on GI tract imaging Crohn's disease with other complication, unspecified gastrointestinal tract location (HCC) High risk medications (not anticoagulants) long-term use Need for vaccination for pneumococcus 04/30/2024 10:50 AM OUTPATIENT CODER Scheduled Orders Name Type Priority Associated Diagnoses Orde r Schedule T-SPOT.TB Blood Microbiology Routine Abnormal finding on GI tract imaging Crohn's disease with other complication, unspecified gastrointestinal tract location (HCC) High risk medications (not anticoagulants) long-term use Need for vaccination for pneumococcus Expected: 04/30/2024, Expires: 04/30/2025 Scheduled Referrals Name Type Priority Associated Diagnoses Orde r Schedule Ambulatory referral to Nutrition Services Outpatient Referral Routine Crohn's disease with other complication, unspecified gastrointestinal tract location (HCC) Expected: 05/14/2024 (Approximate), Expires: 04/30/2025 documented as of this encounter Results * Hepatitis B core antibody, total Blood (04/30/2024 10:50 AM OUTPATIENT CODER) Hep B core IgG/IgM Nonreactive Nonreactive Comment:Testing performed by : [facility], [address] [facility], [place]., [address] Blood 04/30/2024 10:5 0 AM OUTPATIENT CODER 04/30/2024 1:14 PM OUTPATIENT CODER Gerald Medina MD LAB MICROBIOLOGY - GENERAL ORDERABLES Final Result Performing Organization Address City/State/[facility] Co de Phone Number SARAH [facility] [address] [place] [employer]. [facility] [place] [address] * Hepatitis B surface antibody (immune status) Blood (04/30/2024 10:50 AM OUTPATIENT CODER) HBsAb (immune status) Nonreactive Comment: This result is consistent with a lack of immunity to Hepatitis B Virus when used in the setting of routine screening. Current interpretative data was last revised on 21 Testing performed by: [facility], [address] [place]., [address] Blood 04/30/2024 10:5 0 AM OUTPATIENT CODER 04/30/2024 1:14 PM OUTPATIENT CODER Gerald Medina MD LAB MICROBIOLOGY - GENERAL ORDERABLES Final Result Performing Organization Address [facility] Co de Phone Number SARAH [facility] [address] [employer] [address] * Hepatitis B Surface Antigen Blood (04/30/2024 10:50 AM OUTPATIENT CODER) Pathologist [facility] HepBsAg Nonreactive Nonreactive Comment:Testing performed by : [facility], [address] [place] [address]., [id number] Blood 04/30/2024 10:5 0 AM OUTPATIENT CODER 04/30/2024 5:44 PM OUTPATIENT CODER Gerald Medina MD LAB MICROBIOLOGY - GENERAL ORDERABLES Final Result Performing Organization Address [facility] Co de Phone Number SARAH [facility] [address] [place] [employer] [place] [address] * (ABNORMAL) Vitamin D 25 hydroxy (04/30/2024 10:50 AM OUTPATIENT CODER) Vitamin D 25-OH 20(L) 30 - 80 ng/mL Blood 04/30/2024 10:5 0 AM OUTPATIENT CODER 04/30/2024 11:00 AM OUTPATIENT CODER Gerald Medina MD LAB BLOOD ORDERABLES Final Result Performing Organization Address [facility] Co de Phone Number [facility] [address] [facility]. [facility] [place] [address] * Vitamin B12 (04/30/2024 10:50 AM OUTPATIENT CODER) Vitamin B12 461 230 - 1,250 pg/mL Comment:Testing performed by : [facility], [address] [place] [address]., [address] Blood 04/30/2024 10:5 0 AM OUTPATIENT CODER 04/30/2024 3:01 PM OUTPATIENT CODER Gerald Medina MD LAB BLOOD ORDERABLES Final Result Performing Organization Address [facility] de Phone Number [facility] [address] [facility]. [facility] [place] [address] * (ABNORMAL) Ferritin (04/30/2024 10:50 AM OUTPATIENT CODER) Ferritin 216(H) 15 - 150 ng/mL Comment:Testing performed by : [facility], [address] [place] [address]., [address] Blood 04/30/2024 10:5 0 AM OUTPATIENT CODER 04/30/2024 3:01 PM OUTPATIENT CODER Gerald Medina MD LAB BLOOD ORDERABLES Final Result Performing Organization Address [facility] Co de Phone Number SARAH [facility] [address] [facility] [place] [facility] [employer]. [facility] [place] [address] * Iron profile w/ IBC (04/30/2024 10:50 AM OUTPATIENT CODER) Iron 104 35 - 145 mcg/dL Comment:Testing performed by : [facility], [address] [place] [address]., [address] TIBC 269 250 - 400 mcg/dL SARAH ENGLAND Comment:Testing performed by : [facility], [facility] [facility], [place]., [address] Transferrin saturation 39 20 - 50 % SARAH ENGLAND Comment:Testing performed by : [facility], [address] [place] [address]., [address] Blood 04/30/2024 10:5 0 AM OUTPATIENT CODER 04/30/2024 3:01 PM OUTPATIENT CODER Gerald Medina MD LAB BLOOD ORDERABLES Final Result Performing Organization Address [facility] Co de Phone Number [facility] [address] [facility] [employer] [place], [place] [id number] * Erythrocyte sedimentation rate (04/30/2024 10:50 AM OUTPATIENT CODER) Pathologist [facility] Erythrocyte sedimentation rate 15 1 - 20 mm/hr Blood 04/30/2024 10:5 0 AM OUTPATIENT CODER 04/30/2024 11:00 AM OUTPATIENT CODER Gerald Medina MD LAB BLOOD ORDERABLES Final Result Performing Organization Address [facility] de Phone Number [facility] [address] [place] [address] [place] [address] * (ABNORMAL) CRP (acute phase) (04/30/2024 10:50 AM OUTPATIENT CODER) Pathologist [facility] CRP 11.2(H) <=10.0 mg/L Blood 04/30/2024 10:5 0 AM OUTPATIENT CODER 04/30/2024 11:00 AM OUTPATIENT CODER Gerald Medina MD LAB BLOOD ORDERABLES Final Result Performing Organization Address [facility] de Phone Number [facility] [address] [place] [address] [place] [address] * Comprehensive metabolic panel (04/30/2024 10:50 AM OUTPATIENT CODER) Sodium 138 135 - 145 mmol/L Potassium, pl 4.2 3.3 - 4.9 mmol/L [facility] Chloride 100 97 - 110 mmol/L [facility] CO2 25 22 - 32 mmol/L [facility] Anion gap 13 2 - 15 mmol/L [facility] BUN 10 6 - 25 mg/dL [facility] Creatinine 0.90 0.60 - 1.10 mg/dL [facility] Glucose 101 70 - 199 mg/dL [facility] Comment: Interpretive Data Fasting glucose >/= 126 [...] [facility]ER [facility] Blood 04/30/2024 10:5 0 AM OUTPATIENT CODER 04/30/2024 11:00 AM OUTPATIENT CODER us Gerald Medina MD LAB BLOOD ORDERABLES Final Result SARAH [facility] [address] [facility]. [place] [address] * (ABNORMAL) CBC with auto differential (04/30/2024 10:50 AM OUTPATIENT CODER) WBC 10.1(H) 3.8 - 9.9 K/cumm Hgb 15.3 11.9 - 15.5 g/dL SARAH LALAYOLANDA Hct 47.5(H) 35.6 - 45.5 % SARAH LALAYOLANDA Plt 265 150 - 400 K/cumm SARAH LALAYOLANDA MPV 11.3 9.1 - 12.3 fL SARAH LALAYOLANDA RBC 5.35(H) 3.90 - 5.20 M/cumm SARAH LALAYOLANDA MCV 88.8 81.3 - 96.4 fL [facility] 28.6 27.1 - 33.3 pg [facility]C 32.2(L) 32.3 - 35.7 g/dL [facility] RDW CV 12.8 11.1 - 14.9 % [facility] RDW SD 41.6 35.7 - 48.1 fL [facility] NRBC abs 0.00 0.00 - 0.01 K/cumm [facility] Blood 04/30/2024 10:5 0 AM OUTPATIENT CODER 04/30/2024 11:00 AM OUTPATIENT CODER us Gerald Medina MD LAB BLOOD ORDERABLES Final Result SARAH VYAS [address] [facility]. [place] [address] documented in this encounter Visit Diagnoses Diagnosis High risk medications (not anticoagulants) long-term use- Primary Encounter for long-term (current) use of other medications Abnormal finding on GI tract imaging Crohn's disease with other complication, unspecified gastrointestinal tract location (HCC) Need for vaccination for pneumococcus documented in this encounter Orders Immunization/Injection Count Last Ordered Date First Ordered Date PNEUMOCOCCAL CONJUGATE VACCI NE 20 VALENT IM 1 04/30/2024 Outpatient Referral Count Last Ordered Date Fir st Ordered Date AMB REFERRAL TO GASTROENTEROLOGY 1 05/01/19 25 documented in this encounter Care Teams Small Electric Engine Technician Relationship Specialty Start Date End Date Gladis Blanco NP [address] [place] [address] PCP - General Nurse Practitioner 04/07/24 documented as of this encounter
--- OUTSIDE RECORDS SUMMARY | 2024-05-01 07:13 | XMS_ITS | Clinical Summary ---
Author Organization [facility] Address [address] [place] [address] Phone Care Team Providers Care Lyft Driver Name Role Phone Francis Gladis Ivy ESTRELLA Primary Care Provider [phone] Allergies Active Allergy Reactions Criticality Noted Date Comments Sulfa Antibiotics Unknown 06/04/2015 Medications metroNIDAZOLE (FLAGYL) 500 MG Tablet Take 1 Tablet by mouth 3 times daily. 30 Tablet 3 Active ondansetron (ZOFRAN-ODT) 4 MG TABLET DISPERSIBLE Take 1 Tablet by mouth every 6 hours as needed for Nausea - 1st line. 10 Tablet 3 Active HYDROcodone-acet aminophen (Pinon) 10-325 MG TabletIndication s:Terminal ileitis (HCC) Take 0.5 Tablets by mouth every 4 hours as needed for Moderate or more severe pain. 10 Tablet 3 Active ondansetron (ZOFRAN-ODT) 4 MG TABLET DISPERSIBLE Take 1 Tablet by mouth every 8 hours as needed for Nausea - 1st line. 10 Tablet 5 Active oseltamivir (Tamiflu) 75 MG Capsule Take 1 Capsule by mouth 2 times daily for 5 days. 10 Capsule 5 04/17/19 25 Encounters Date Type Department Care Team Description 04/12/2024 6:11 AM ENTREPRENEURSHIP PROGRAM DIRECTOR - 04/12/2024 7:20 AM [facility] [address] [place] [address] Alvin Vallejo MD Influenza A Discharge Disposition: Discharged to home or Selfcare 04/12/2024 Travel from Last 3 Months Social History Tobacco Use Types Packs/Day Years Used Date Smoking Tobacco: Never Smokeless Tobacco: Never Tobacco Cessation:Counseling Given: Not Answered Alcohol Use Standard Drinks/Week Comments Yes 0 (1 standard drink = 0.6 oz pur e alcohol) Comments No Sex and Gender Information Value Date Recorded Sex Assigned at Female 04/12/2024 6:16 AM ENTREPRENEURSHIP PROGRAM DIRECTOR Legal Sex Female 9:09 AM ENTREPRENEURSHIP PROGRAM DIRECTOR Gender Identity Female 04/12/2024 6:16 AM ENTREPRENEURSHIP PROGRAM DIRECTOR Sexual Orientation Not on file Last Filed Vital Signs Vital Sign Reading Time Taken Comments Blood Pressure 124/77 04/12/2024 7:20 AM ENTREPRENEURSHIP PROGRAM DIRECTOR Pulse 76 04/12/2024 7:20 AM ENTREPRENEURSHIP PROGRAM DIRECTOR Temperature 37.3 C (99.1 F) 04/12/2024 6:15 AM ENTREPRENEURSHIP PROGRAM DIRECTOR Respiratory Rate 18 04/12/2024 7:20 AM ENTREPRENEURSHIP PROGRAM DIRECTOR Oxygen Saturation 99% 04/12/2024 7:20 AM ENTREPRENEURSHIP PROGRAM DIRECTOR Inhaled Oxygen Concentration - - Weight 83.9 kg (185 lb) 04/12/2024 6:15 AM ENTREPRENEURSHIP PROGRAM DIRECTOR Height 167.6 cm (5' 6 ) 04/12/2024 6:15 AM ENTREPRENEURSHIP PROGRAM DIRECTOR Body Mass Index 29.86 04/12/2024 6:15 AM ENTREPRENEURSHIP PROGRAM DIRECTOR Plan of Treatment Health Maintenance Due Date Last Done Comments Hepatitis C Virus (HCV) Screening 1994 Pap Smear 09/18/2015 Influenza Immunization (#1) 2023 SARS-COV-2 Immunization ( season) 2023 01/04/2021, 12/08/2020 Respiratory Syncytial Virus (RSV) Immunization (Adult) (1 - 1-dose 75+ series) 2069 Hepatitis B Immunization Completed 996, 1994, 1994 Meningococcal Immunization (ACWY) Aged Out 11/27/2007 No longer eligible based on patient's age to complete this topic DTaP/Tdap/Td Immunization Discontinued 2015, 10/01/2006, 12/06/1995, Additional history exists TdaP Immunization Completed 09/08/2015, 10/01/2006 Pneumococcal Immunization Combined Aged Out No longer eligible based on patient's age to complete this topic Rotavirus Immunization Aged Out No lo nger eligible based on patient's age to complete this topic Procedures Procedure Name Priority Date/Time Associated Diagnosis Comments RSV,SARS-COV-2,INFL UENZA A&B BY PCR STAT 04/12/2024 6:18 AM ENTREPRENEURSHIP PROGRAM DIRECTOR from Last 3 Months Results * (ABNORMAL) MORRIS-COV-2 Flu RSV - (Quad PCR) (04/12/2024 6:18 AM ENTREPRENEURSHIP PROGRAM DIRECTOR) FLU A Positive(A) Negative, Error 04/12/2024 7:02 AM ENTREPRENEURSHIP PROGRAM DIRECTOR [facility] FLU B Negative Negative 04/12/2024 7:02 AM ENTREPRENEURSHIP PROGRAM DIRECTOR [facility] RESP SYNC VIRUS Negative Negative 7:02 AM ENTREPRENEURSHIP PROGRAM DIRECTOR [facility] SARSCOV2 NOT DETECTED (Reference Range for this test is Not Detected) 04/12/2024 7:02 AM ENTREPRENEURSHIP PROGRAM DIRECTOR [facility] Comment:This test was perfor med by a Reverse Boat Outfitter PCR Method. Swab NASOPHARYNGEAL SWAB / Unknown Non-Phlebotomy Collection / Unknown 04/12/2024 6:18 AM ENTREPRENEURSHIP PROGRAM DIRECTOR 04/12/2024 6:22 AM ENTREPRENEURSHIP PROGRAM DIRECTOR us Alvin Vallejo MD MICROBIOLOGY - GENERAL ORDERABLE S Final Result [facility] [address] [place] [address] from Last [address] [facility] Care Teams Lyft Driver Relationship Specialty Start Date End Date Gladis Blanco APRN [address] [place] [address] PCP - General Advanced Practice Nurse 04/12/24
--- OUTSIDE RECORDS SUMMARY | 2024-05-01 07:14 | XMS_ITS | Clinical Summary ---
Author Organization [place] [id number] [facility] Address [address] [place] [address] Care Team Providers Care Vice Chair Name Role Phone Gladis Blanco FABIEN Primary Care Provider [phone] Allergies Active Allergy Reactions Criticality Noted Date Comments Sulfa (Sulfonamide Antibiotics) Hives Medium 09/2015 Medications dicyclomine (BENTYL) 20 mg tablet TAKE ONE TABLET BY MOUTH EVERY 6 HOURS 04/01/19 21 Active famotidine (PEPCID) 20 mg tablet Take 1 tablet (20 mg total) by mouth 2 (two) times a day Active NOT IN DATABASE, PRESCRIPTION, Drug name: Deneen Alexis Dose: 1 packet Route: oral Frequency: daily Active omeprazole (PriLOSEC) 20 mg capsule Take 1 capsule (20 mg total) by mouth 2 (two) times a day before breakfast and dinner 60 capsule 3 02/19/20 24 025 Active ALPRAZolam (XANAX) 0.25 mg tabletIndications:An xiety Take 1 tablet (0.25 mg total) by mouth once for 1 dose 30 minutes prior to imaging on 03.29.2024 1 tablet 03/27/19 25 Active budesonide EC (ENTOCORT EC) 3 mg 24 hr capsuleIndications:A bnormal finding on GI tract imaging,Crohn's disease with other complication, unspecified gastrointestinal tract location (HCC) Take 3 capsules (9 mg total) by mouth every morning for 44 days, THEN 2 capsules (6 mg total) every morning for 30 days, THEN 1 capsule (3 mg total) every morning for 14 days. 206 capsule 04/01/19 25 025 Active Active Problems Problem Noted Date Diagnosed Date Gastroesophageal reflux disease without esophagi tis 01/30/2024 Chronic diarrhea 01/30/2024 Bloating 01/30/2024 Abnormal finding on GI tract imaging 01/30/2024 Encounters Date Type Department Care Team Description 04/30/2024 10:45 AM PROPERTIES SUPERVISOR Lab [facility] [address] [place] [address] Abnormal finding on GI tract imaging; Crohn's disease with other complication, unspecified gastrointestinal tract location (HCC); High risk medications (not anticoagulants) long-term use; Need for vaccination for pneumococcus 04/30/2024 9:30 AM PROPERTIES SUPERVISOR Office Visit [facility] [address] [place] [address] Medical Office [address] [place] [address] Gerald Medina MD High risk medications (not anticoagulants) long-term use (Primary Dx); Abnormal finding on GI tract imaging; Crohn's disease with other complication, unspecified gastrointestinal tract location (HCC); Need for vaccination for pneumococcus 04/07/2024 Telephone [facility] [address] [facility] Medicine 12th [place] [address] [place] [address] Anabella Castro RN GI Return Call 04/01/2024 Telephone [facility] [address] [place] [address] Medical Office Building [address], [address] [place] [address] Maxine Lott LPN 03/29/2024 9:42 AM PROPERTIES SUPERVISOR - 03/29/2024 11:59 PM PROPERTIES SUPERVISOR Hospital Encounter [facility] [address] [place] [address] Nadia Davis MD Chronic diarrhea; Abnormal finding on GI tract imaging Discharge Disposition: Discharge to home or self care 03/27/2024 Telephone [facility] [address] [place] [address] Medical Office Building [address], [address] [place] [phone] Maxine Lott LPN Follow-up 03/04/2024 Telephone [facility] [address] [facility] 12th [place] [address] [place] [address] Maxine Lott LPN Scheduling Testing/Treatment 02/19/2024 1:30 PM PROPERTIES SUPERVISOR - 02/19/2024 2:30 PM PROPERTIES SUPERVISOR Surgery [facility] [address] [address] Nadia Davis MD ESOPHAGOGASTRODUODENOSCOPY REMOVAL SNARE 02/19/2024 12:44 PM PROPERTIES SUPERVISOR Anesthesia Event [facility] [address] [address] Rodriguez Milton MD 02/19/2024 10:53 AM PROPERTIES SUPERVISOR - 02/19/2024 2:19 PM PROPERTIES SUPERVISOR Hospital Encounter [facility] [address] [address] Nadia Davis MD Gastroesophageal reflux disease without esophagitis; Chronic diarrhea; Bloating; Abnormal finding on GI tract imaging Discharge Disposition: Discharge to home or self care from Last 3 Months Immunizations Immunization Administration Dates Next Due Pneumococcal Conjugate Pcv20 04/30/2024 Surgical History Surgery Date Site/Laterality Comments TONSILLECTOMY/ADENOIDECTOMY CHOLECYSTECTOMY DILATION AND CURETTAGE OF UTERUS Medical History Medical History Date Comments IBS (irritable bowel syndrome) Family History Medical History Relation Name Comments No Known Problems Brother No Known Problems Daughter Diabetes type I Father No Known Problems Mother Thyroid disease Paternal Great-Grandmother Celiac disease Neg Hx Colon cancer Neg Hx Inflammatory bowel disease Neg Hx Stomach cancer Neg Hx Relation Name Status Comments Brother Alive Daughter Alive Father Alive Mother Alive Paternal Great-Grandmother Social History Tobacco Use Types Packs/Day Years [...] CDT Gender Identity Female 01/30/2024 9:10 PM PROPERTIES SUPERVISOR Sexual Orientation Not on file Occupation Industry Job Start Date Job End Date Not on file Not on file Not on file Not on file Obstetrics History Para Term AB IAB SAB Ectopic Multiple Livin g Live Births 1 1 1 1 1 Date Outcome GA Total Labor Labor/2nd/3rd Weight Sex Type Anes PTL Sumaya A1 A5 Name Clin 2019 Term 38w 0d 3.232 kg (7 lb 2 oz) F Vag-S pont Living Last Filed Vital Signs Vital Sign Reading Time Taken Comments Blood Pressure 108/77 04/30/2024 9:21 AM PROPERTIES SUPERVISOR Pulse 86 04/30/2024 9:21 AM PROPERTIES SUPERVISOR Temperature 36.7 C (98 F) 04/30/2024 9:21 AM PROPERTIES SUPERVISOR Respiratory Rate 22 02/19/2024 2:05 PM PROPERTIES SUPERVISOR Oxygen Saturation 100% 04/30/2024 9:21 AM PROPERTIES SUPERVISOR Inhaled Oxygen Concentration - - Weight 78.5 kg (173 lb) 04/30/2024 9:21 AM PROPERTIES SUPERVISOR Height 167.6 cm (5' 6 ) 04/30/2024 9:21 AM PROPERTIES SUPERVISOR Body Mass Index 27.92 04/30/2024 9:21 AM PROPERTIES SUPERVISOR Plan of Treatment Health Maintenance Due Date Last Done Comments Depression Screening 1994 Hepatitis C Screening 1994 HPV Vaccines (2 - 2-dose series) 05/27/2008 11/27/2007 Cervical Cancer Screening 12/31/2021 12/31/2020 Regular Well Visit/Exam 18-64 12/31/2021 12/31/2020 Covid-19 Vaccine ( season) 2023 01/04/2021, 12/08/2020 Influenza Vaccine (#1) 2023 DTaP/Tdap/Td Vaccine (7 - Td or Tdap) 09/07/2025 09/08/2015, 10/01/2006, 12/06/1995, Additional history exists Varicella Vaccines Completed 10/13/1998, 12/06/1995 Hepatitis B Screening Completed 04/30/2024 , 03/27/1995, 1994, Additional history exists Pneumococcal vaccine <65 Aged Out 04/30/2024 No longer eligible based on patient's age to complete this topic Procedures Procedure Name Priority Date/Time Associated Diagnosis Comments EGFR Routine 04/30/2024 10:50 AM PROPERTIES SUPERVISOR Abnormal finding on GI tract imaging Crohn's disease with other complication, unspecified gastrointestinal tract location (HCC) High risk medications (not anticoagulants) long-term use Need for vaccination for pneumococcus DIFFERENTIAL AUTO Routine 04/30/2024 10:50 AM PROPERTIES SUPERVISOR Abnormal finding on GI tract imaging Crohn's disease with other complication, unspecified gastrointestinal tract location (HCC) High risk medications (not anticoagulants) long-term use Need for vaccination for pneumococcus VITAMIN D 25 HYDROXY Routine 04/30/2024 10:50 AM PROPERTIES SUPERVISOR Abnormal finding on GI tract imaging Crohn's disease with other complication, unspecified gastrointestinal tract location (HCC) High risk medications (not anticoagulants) long-term use Need for vaccination for pneumococcus VITAMIN B12 Routine 04/30/2024 10:50 AM PROPERTIES SUPERVISOR Abnormal finding on GI tract imaging Crohn's disease with other complication, unspecified gastrointestinal tract location (HCC) High risk medications (not anticoagulants) long-term use Need for vaccination for pneumococcus FERRITIN Routine 04/30/2024 10:50 AM PROPERTIES SUPERVISOR Abnormal finding on GI tract imaging Crohn's disease with other complication, unspecified gastrointestinal tract location (HCC) High risk medications (not anticoagulants) long-term use Need for vaccination for pneumococcus IRON PROFILE W/ IBC Routine 04/30/2024 10:50 AM PROPERTIES SUPERVISOR Abnormal finding on GI tract imaging Crohn's disease with other complication, unspecified gastrointestinal tract location (HCC) High risk medications (not anticoagulants) long-term use Need for vaccination for pneumococcus ERYTHROCYTE SEDIMENTATION RATE Routine 0 04/30/2024 10:50 AM PROPERTIES SUPERVISOR Abnormal finding on GI tract imaging Crohn's disease with other complication, unspecified gastrointestinal tract location (HCC) High risk medications (not anticoagulants) long-term use Need for vaccination for pneumococcus CRP (ACUTE PHASE) Routine 04/30/2024 10:50 AM PROPERTIES SUPERVISOR Abnormal finding on GI tract imaging Crohn's disease with other complication, unspecified gastrointestinal tract location (HCC) High risk medications (not anticoagulants) long-term use Need for vaccination for pneumococcus COMPREHENSIVE METABOLIC PANEL Routine 10:50 AM PROPERTIES SUPERVISOR Abnormal finding on GI tract imaging Crohn's disease with other complication, unspecified gastrointestinal tract location (HCC) High risk medications (not anticoagulants) long-term use Need for vaccination for pneumococcus CBC WITH AUTO DIFFERENTIAL Routine 04/30 10:50 AM PROPERTIES SUPERVISOR Abnormal finding on GI tract imaging Crohn's disease with other complication, unspecified gastrointestinal tract location (HCC) High risk medications (not anticoagulants) long-term use Need for vaccination for pneumococcus HEPATITIS B SURFACE ANTIBODY (IMMUNE STATUS) Routine 04/30/2024 10:50 AM PROPERTIES SUPERVISOR Abnormal finding on GI tract imaging Crohn's disease with other complication, unspecified gastrointestinal tract location (HCC) High risk medications (not anticoagulants) long-term use Need for vaccination for pneumococcus HEPATITIS B SURFACE ANTIGEN Routine 06/2024 10:50 AM PROPERTIES SUPERVISOR Abnormal finding on GI tract imaging Crohn's disease with other complication, unspecified gastrointestinal tract location (HCC) High risk medications (not anticoagulants) long-term use Need for vaccination for pneumococcus HEPATITIS B CORE ANTIBODY, TOTAL Routine 04/30/2024 10:50 AM PROPERTIES SUPERVISOR Abnormal finding on GI tract imaging Crohn's disease with other complication, unspecified gastrointestinal tract location (HCC) High risk medications (not anticoagulants) long-term use Need for vaccination for pneumococcus MRI ABDOMENT ENTEROGRAPHY W WO CONTRAST Schedule Routine, Read Routine (OP Routine) 03/29/2024 11:36 AM PROPERTIES SUPERVISOR Chronic diarrhea Abnormal finding on GI tract imaging COLONOSCOPY 02/19/2024 1:03 PM PROPERTIES SUPERVISOR SURGICAL PATHOLOGY Routine 02/19/2024 12:55 PM PROPERTIES SUPERVISOR Gastroesophageal reflux disease without esophagitis Chronic diarrhea Bloating Abnormal finding on GI tract imaging EGD 02/19/2024 12:50 PM PROPERTIES SUPERVISOR ENDO ADD ON ESOPHAGOGASTRODUODENOSCOPY BIOPSY 02/19/2024 12:47 PM PROPERTIES SUPERVISOR Gastroesophageal reflux disease without esophagitis Chronic diarrhea Bloating Abnormal finding on GI tract imaging COLON BIOPSY 02/19/2024 12:47 PM PROPERTIES SUPERVISOR Gastroesophageal reflux disease without esophagitis Chronic diarrhea Bloating Abnormal finding on GI tract imaging ESOPHAGOGASTRODUODENOSCOPY REMOVAL SNARE 02/19/2024 12:47 PM PROPERTIES SUPERVISOR Gastroesophageal reflux disease without esophagitis Chronic diarrhea Bloating Abnormal finding on GI tract imaging POCT HCG, URINE Routine 02/19/2024 THINPREP TIS PAP REFLEX HPV MRNA E6/E7, CHLAMYDIA/N.GONORRHOEAE Routine 12/31/2020 12:00 AM CDT from Last 3 Months or Most Recently Relevant to Health Maintenance Results * eGFR (04/30/2024 10:50 AM PROPERTIES SUPERVISOR) eGFR 89 >=60 mL/min/1. 73 m2 Comment: [...] reviewed 2020. Blood 04/30/2024 10:5 0 AM PROPERTIES SUPERVISOR 04/30/2024 11:00 AM PROPERTIES SUPERVISOR us Gerald Medina MD LAB BLOOD ORDERABLES Final Result [facility] [address] [facility]. Department [place] [address] * (ABNORMAL) Differential, auto (04/30/2024 10:50 AM PROPERTIES SUPERVISOR) Neutrophil abs 7.8(H) 1.5 - 6.5 K/cumm Imm gran abs 0.1 0.0 - 0.1 K/cumm [facility] Lymphocyte abs 1.5 0.8 - 3.3 K/cumm [facility] Monocyte abs 0.6 0.2 - 0.8 K/cumm [facility] Eosinophil abs 0.0 0.0 - 0.5 K/cumm [facility] Basophil abs 0.0 0.0 - 0.1 K/cumm [facility] Neutrophil pct 77.8 % CERNER [facility] Comment: Interpretive Data Percent cell count reference ranges are not reported, since discordance with absolute values may lead to misinterpretation of CBC data. Current Interpretive Data was last revised on 2017. Imm gran pct 0.5 % [facility] Comment: Interpretive Data Percent cell count reference ranges are not reported, since discordance with absolute values may lead to misinterpretation of CBC data. Current Interpretive Data was last revised on 2017. Lymphocyte pct 14.7 % [facility] Comment: Interpretive Data Percent cell count reference ranges are not reported, since discordance with absolute values may lead to misinterpretation of CBC data. Current Interpretive Data was last revised on 2017. Monocyte pct 6.3 % [facility] Comment: Interpretive Data Percent cell count reference ranges are not reported, since discordance with absolute values may lead to misinterpretation of CBC data. Current Interpretive Data was last revised on 2017. Eosinophil pct 0.4 % [facility] Comment: Interpretive Data Percent cell count reference [...] on 2017. Blood 04/30/2024 10:5 0 AM PROPERTIES SUPERVISOR 04/30/2024 11:00 AM PROPERTIES SUPERVISOR Gerald Medina MD LAB BLOOD ORDERABLES Final Result Performing Organization Address City/[facility] Co de Phone Number SARAH [place] [id number] [employer] [address] * Iron profile w/ IBC (04/30/2024 10:50 AM PROPERTIES SUPERVISOR) Iron 104 35 - 145 mcg/dL Comment:Testing performed by : [facility], [address] [place] [address]., [id number] TIBC 269 250 - 400 mcg/dL SARAH [place] Comment:Testing performed by : [facility], [address] [place] [address]., [id number] Transferrin saturation 39 20 - 50 % SARAH [place] Comment:Testing performed by : [facility], [address] [place] [address]., [id number] Blood 04/30/2024 10:5 0 AM PROPERTIES SUPERVISOR 04/30/2024 3:01 PM PROPERTIES SUPERVISOR Gerald Medina MD LAB BLOOD ORDERABLES Final Result Performing Organization Address [facility] Co de Phone Number SARAH [place] [address] [employer] [address] * (ABNORMAL) CBC with auto differential (04/30/2024 10:50 AM PROPERTIES SUPERVISOR) WBC 10.1(H) 3.8 - 9.9 K/cumm Hgb 15.3 11.9 - 15.5 g/dL SARAH [facility] Hct 47.5(H) 35.6 - 45.5 % SARAH LALAWCH Plt 265 150 - 400 K/cumm SARHA LALAWCH MPV 11.3 9.1 - 12.3 fL SARAH LALAWYOLANDA RBC 5.35(H) 3.90 - 5.20 M/cumm SARAH LALAWCH MCV 88.8 81.3 - 96.4 fL SARAH LALAWCH MCH 28.6 27.1 - 33.3 pg [facility] MCHC 32.2(L) 32.3 - 35.7 g/dL SARAH LALAW RDW CV 12.8 11.1 - 14.9 % SARAH LALAW RDW SD 41.6 35.7 - 48.1 fL SARAH LALAW NRBC abs 0.00 0.00 - 0.01 K/cumm SARAH [facility] Blood 04/30/2024 10:5 0 AM PROPERTIES SUPERVISOR 04/30/2024 11:00 AM PROPERTIES SUPERVISOR Gerald Medina MD LAB BLOOD ORDERABLES Final Result Performing Organization Address [facility]/ZIP Co de Phone Number [facility] [address] [employer] [address] * Hepatitis B core antibody, total Blood (04/30/2024 10:50 AM PROPERTIES SUPERVISOR) Hep B core IgG/IgM Nonreactive Nonreactive Comment:Testing performed by : [facility], [address] [place]., [address] Blood 04/30/2024 10:5 0 AM PROPERTIES SUPERVISOR 04/30/2024 1:14 PM PROPERTIES SUPERVISOR Gerald Medina MD LAB MICROBIOLOGY - GENERAL ORDERABLES Final Result Performing Organization Address City/[facility]/ZIP Co de Phone Number SARAH LALACH [address] [employer] [place], [place] [id number] * (ABNORMAL) Vitamin D 25 hydroxy (04/30/2024 10:50 AM PROPERTIES SUPERVISOR) Vitamin D 25-OH 20(L) 30 - 80 ng/mL Blood 04/30/2024 10:5 0 AM PROPERTIES SUPERVISOR 04/30/2024 11:00 AM PROPERTIES SUPERVISOR Gerald Medina MD LAB BLOOD ORDERABLES Final Result Performing Organization Address [facility] Co de Phone Number SARAH [facility] [phone] [facility]. [facility] [place] [address] * Hepatitis B surface antibody (immune status) Blood (04/30/2024 10:50 AM PROPERTIES SUPERVISOR) Pathologist [facility] HBsAb (immune status) Nonreactive Comment: This result is consistent with a lack of immunity to Hepatitis B Virus when used in the setting of routine screening. Current interpretative data was last revised on 21 Testing performed by: [facility], [address] [place] [address]., [id number] Blood 04/30/2024 10:5 0 AM PROPERTIES SUPERVISOR 04/30/2024 1:14 PM PROPERTIES SUPERVISOR Gerald Medina MD LAB MICROBIOLOGY - GENERAL ORDERABLES Final Result Performing Organization Address [facility] de Phone Number LIND[facility]ANNER [facility] [address] [facility]. [place] [address] * Hepatitis B Surface Antigen Blood (04/30/2024 10:50 AM PROPERTIES SUPERVISOR) HepBsAg Nonreactive Nonreactive Comment:Testing performed by : [facility], [facility], [place]., [address] Blood 04/30/2024 10:5 0 AM PROPERTIES SUPERVISOR 04/30/2024 5:44 PM PROPERTIES SUPERVISOR Gerald Medina MD LAB MICROBIOLOGY - GENERAL ORDERABLES Final Result Performing Organization Address [facility] Co de Phone Number LINDAWILVER [facility] [address] [facility]. [facility] [place] [address] * Erythrocyte sedimentation rate (04/30/2024 10:50 AM PROPERTIES SUPERVISOR) Erythrocyte sedimentation rate 15 1 - 20 mm/hr Blood 04/30/2024 10:5 0 AM PROPERTIES SUPERVISOR 04/30/2024 11:00 AM PROPERTIES SUPERVISOR Gerald Medina MD LAB BLOOD ORDERABLES Final Result [facility] [address] [facility]. [facility] [place] [address] * (ABNORMAL) CRP (acute phase) (04/30/2024 10:50 AM PROPERTIES SUPERVISOR) CRP 11.2(H) <=10.0 mg/L Blood 04/30/2024 10:5 0 AM PROPERTIES SUPERVISOR 04/30/2024 11:00 AM PROPERTIES SUPERVISOR Gerald Medina MD LAB BLOOD ORDERABLES Final Result Performing Organization Address [facility] Co de Phone Number [facility] [address] [facility]. [facility] [place] [address] * (ABNORMAL) Ferritin (04/30/2024 10:50 AM PROPERTIES SUPERVISOR) Ferritin 216(H) 15 - 150 ng/mL Comment:Testing performed by : [facility], [address] [place] [address], [place]., [address] Blood 04/30/2024 10:5 0 AM PROPERTIES SUPERVISOR 04/30/2024 3:01 PM PROPERTIES SUPERVISOR Gerald Medina MD LAB BLOOD ORDERABLES Final Result Performing Organization Address City/[facility]/ZIP Co de Phone Number SARAH [facility] [address] [facility]. [facility] [place] [address] * Vitamin B12 (04/30/2024 10:50 AM PROPERTIES SUPERVISOR) Vitamin B12 461 230 - 1,250 pg/mL Comment:Testing performed by : [facility], [facility], [place]., [address] Blood 04/30/2024 10:5 0 AM PROPERTIES SUPERVISOR 04/30/2024 3:01 PM PROPERTIES SUPERVISOR Gerald Medina MD LAB BLOOD ORDERABLES Final Result [facility] [address] [facility]. Department [place] [address] * Comprehensive metabolic panel (04/30/2024 10:50 AM PROPERTIES SUPERVISOR) Sodium 138 135 - 145 mmol/L Potassium, pl 4.2 3.3 - 4.9 mmol/L [facility] Chloride 100 97 - 110 mmol/L [facility] CO2 25 22 - 32 mmol/L [facility] Anion gap 13 2 - 15 mmol/L [facility] BUN 10 6 - 25 mg/dL [facility] Creatinine 0.90 0.60 - 1.10 mg/dL [facility] Glucose 101 70 - 199 mg/dL [facility] Comment: Interpretive Data Fasting glucose >/= 126 [...] [facility] AST 23 10 - 45 Units/L [facility] Blood 04/30/2024 10:5 0 AM PROPERTIES SUPERVISOR 04/30/2024 11:00 AM PROPERTIES SUPERVISOR us Gerald Medina MD LAB BLOOD ORDERABLES Final Result SARAH [place] [address] [facility]. [place] [address] * MRI Abdomen Enterography W WO Contrast (03/29/2024 11:36 AM PROPERTIES SUPERVISOR) Anatomical Region Laterality Modality Body N/A Magnetic Resonan ce 03/31/2024 11:3 5 AM PROPERTIES SUPERVISOR Impressions 03/31/2024 12:50 PM PROPERTIES SUPERVISOR 1. Active inflammation involving the distal 4 cm of terminal ileum with luminal narrowing without proximal bowel dilatation. 2. Incidentally noted multiple small ovarian follicles. Correlate clinically if there is concern for polycystic ovarian syndrome. Dictated by: Erik Williamson M.D. The radiology attending physician has personally reviewed this study, and had reviewed and/or edited this written report and agrees with it. Electronically signed by: Supriya Escobedo M.D. Narrative 03/31/2024 12:50 PM PROPERTIES SUPERVISOR EXAMINATION: MAGNETIC RESONANCE IMAGING OF THE ABDOMEN WITH AND WITHOUT CONTRAST HISTORY: 28-year-old female with history of Crohn's disease. Most recent colonoscopy on 02/19/2024 stricturing ileitis in the terminal ileum. TECHNIQUE: Magnetic resonance imaging of the abdomen was performed prior to and following the uneventful administration of intravenous Gadolinium contrast. Oral contrast and 1 mg of intravenous glucagon was administered prior to the examination. Protocol: MR Enterography Contrast: gadoterate 16 mL COMPARISON: No prior FINDINGS: Bowel: Small diverticula are seen within the colon. There is wall thickening and hyperenhancement of the terminal ileum measuring 4 cm in length with diffusion restriction. There is luminal narrowing in this region without proximal bowel loop dilatation. No perianal disease. Liver/Bile Ducts: Noncirrhotic liver morphology. There is mild hepatic steatosis. Gallbladder: Absent. Pancreas: Normal. Spleen: Normal. Adrenals: Normal. Kidneys: No hydronephrosis. Small right renal hemorrhagic cyst is seen. Bladder: The bladder is normal. Reproductive organs: The uterus is unremarkable. No suspicious of an adnexal mass. Other Findings: No osseous lesion. No ascites. No abdominal pelvis a large lymph node. Incidentally noted multiple small ovarian follicles. Procedure Note Supriya Escobedo MD - 03/31/2024 EXAMINATION: MAGNETIC RESONANCE IMAGING OF THE ABDOMEN WITH AND WITHOUT CONTRAST HISTORY: 28-year-old female with history of Crohn's disease. Most recent colonoscopy on 02/19/2024 stricturing ileitis in the terminal ileum. TECHNIQUE: Magnetic resonance imaging of the abdomen was performed prior to and following the uneventful administration of intravenous Gadolinium contrast. Oral contrast and 1 mg of intravenous glucagon was administered prior to the examination. Protocol: MR Enterography Contrast: gadoterate 16 mL COMPARISON: No prior FINDINGS: Bowel: Small diverticula are seen within the colon. There is wall thickening and hyperenhancement of the terminal ileum measuring 4 cm in length with diffusion restriction. There is luminal narrowing in this region without proximal bowel loop dilatation. No perianal disease. Liver/Bile Ducts: Noncirrhotic liver morphology. There is mild hepatic steatosis. Gallbladder: Absent. Pancreas: Normal. Spleen: Normal. Adrenals: Normal. Kidneys: No hydronephrosis. Small right renal hemorrhagic cyst is seen. Bladder: The bladder is normal. Reproductive organs: The uterus is unremarkable. No suspicious of an adnexal mass. Other Findings: No osseous lesion. No ascites. No abdominal pelvis a large lymph node. Incidentally noted multiple small ovarian follicles. IMPRESSION: 1. Active inflammation involving the distal 4 cm of terminal ileum with luminal narrowing without proximal bowel dilatation. 2. Incidentally noted multiple small ovarian follicles. Correlate clinically if there is concern for polycystic ovarian syndrome. Dictated by: Erik Williamson M.D. The radiology attending physician has personally reviewed this study, and had reviewed and/or edited this written report and agrees with it. Electronically signed by: Supriya Escobedo M.D. Nadia Davis MD IMG MRI PROCEDURES Final Result * Colonoscopy (02/19/2024 1:03 PM PROPERTIES SUPERVISOR) Anatomical Region Laterality Modality Other Narrative Procedure Note Nadia Davis MD - 02/19/2024 1:03 PM CST ENDOSCOPY LAB Patient Name: Leonel Norris Procedure Date: 02/19/2024 1:03 PM Date of : 1995 Admit Type: Outpatient Age: 28 Gender: Female Attending MD: Nadia Davis M.D. Room: [facility] ENDOSCOPY ROOM 01 Note Status: Finalized Procedure: Colonoscopy Indications: Chronic diarrhea, Suspected Crohn's disease of the small bowel, Abnormal CT of the GI tract Providers: Nadia Davis M.D. Referring MD: Darinel Knott M.D. Medicines: Monitored Anesthesia Care Complications: No immediate complications. Estimated Blood Loss: Estimated blood loss was minimal. Procedure: Pre-Anesthesia Assessment: - Prior to the procedure, a History and Physicalwas performed, and patient medications, allergies and sensitivities were reviewed. The patient'stolerance of previous anesthesia was reviewed. - Immediately prior to administration ofmedications, the patient was re-assessed for adequacy to receive sedatives. The benefits, risks and alternatives of theprocedure and sedation were discussed and informed consentwas obtained. All questions were answered. Please referto the signed informed consent document in the medical record. The scope was passed under direct vision.The [id number] was introduced through the anusand advanced to 20 cm into the ileum. The colonoscopywas performed without difficulty. The quality of thebowel preparation was evaluated using the BBPS (BostonBowel Preparation Scale) with scores of: Right Colon = 3, Transverse Colon = 3 and Left Colon = 3 (entiremucosa seen well with no residual staining, smallfragments of stool or opaque liquid). The total BBPS score equals 9. AI Technology was utilized during the procedure to aid in polyp detection. Findings: The perianal and digital rectal examinations were normal. Diffuse inflammation, moderate in severity and characterized by congestion (edema), erosions, erythema, friability and stricture were found in the distal 5 cm of the terminal ileum. The terminal ileum proximal to that was normal. Biopsies were taken with a cold forcepsfor histology. The colon (entire examined portion) appeared normal. Biopsies weretaken with a cold forceps for histology. Anal papilla(e) were hypertrophied. Retroflexion in the right colon was performed. The exam was otherwise without abnormality on direct and retroflexion views. 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 Biopsied. - The entire examined colon is normal. Biopsied. - Anal papilla(e) were hypertrophied. - The examination was otherwise normal on directand retroflexion views. Recommendation: - Await pathology results. - . Electronically signed by Nadia Davis MD Nadia Davis M.D. 02/19/2024 1:30:05 PM Number of Addenda: 0 Note Initiated On: 02/19/2024 1:03 PM us Nadia Davis MD ENDOSCOPY PROCEDURES Final Resu lt * Surgical pathology (02/19/2024 12:55 PM PROPERTIES SUPERVISOR) Tissue (Duodenum, Biopsy) 02/19/2024 12:55 PM PROPERTIES SUPERVISOR Tissue (Gastric/Stomach biopsy) 02/19/2024 12:57 PM PROPERTIES SUPERVISOR Tissue (Polyp(s), colon/colorectal, esophageal, gastric) 02/19/2024 12:59 PM PROPERTIES SUPERVISOR Tissue (Ileum, Biopsy) 02/19/2024 1:12 PM PROPERTIES SUPERVISOR Tissue (Colon, Biopsy) 02/19/2024 1:16 PM PROPERTIES SUPERVISOR Narrative PATHOLOGY W - 02/22/2024 10:06 AM PROPERTIES SUPERVISOR EPIC results best viewed via link to PDF [facility] [place] [address] Note to Patients: This report may contain a detailed description of human tissue sent by a health care provider to the laboratory for pathologic evaluation. The content of this report is essential for diagnosis and may provide important critical findings. This information may be unfamiliar to patients to review without a medical professional present. It is advised that the patient review this report in the presence of a health care provider who can answer questions and explain the details. SURGICAL PATHOLOGY REPORT FINAL Patient Name: LEONEL NORRIS Gender: F : 1995 (Age: 28) Address: [address] [place], [place] [id number] Hospital #: [id number] Taken:02/19/2024 Received:02/19/2024 Reported: 02/22/2024 Patient Type: [facility] EP SAME Client [facility] Service: Gastro Location: Physician(s): Fredi Zimmerman M.D. Diagnosis: A. Duodenum, biopsy: - Duodenal mucosa with no pathologic abnormality B. Stomach, biopsy: - Antral mucosa with inactive chronic gastritis - Separate fragments of oxyntic mucosa with no pathologic abnormality - No Helicobacter pylori organisms are identified (immunostain) C. Stomach, biopsy: - Fundic gland polyp D. Small intestine, terminal ileum, biopsy: - Small intestinal mucosa with surface epithelium and lamina propria acute inflammation, increased lamina propria chronic inflammation, and architectural distortion E. Large intestine, biopsy: - Colonic mucosa with no pathologic abnormality tcl/02/21/2024 09:50 By this signature, I attest that the above diagnosis is based upon my personal examination of the slides(and/or other material indicated in the diagnosis). Riccardo Soto M.D., Ph.D. Report Electronically Reviewed and Signed Out By Riccardo Soto M.D., Ph.D. 02/22/2024 10:06:39 Diagnosis Comment There is no viral cytopathic effect, granuloma, or dysplasia in all parts. History: The patient is a 28-year-old woman with gastroesophageal reflux disease without esophagitis, chronic diarrhea, bloating, abnormal finding on GI tract imaging. Operative procedure: EGD and colonoscopy. Specimen(s) Received: A: Biopsies Duodenum B: Biopsies gastric C: Polyp gastric D: Biopsies terminal ileum E: Biopsies random colon Gross Description: Received in five formalin jars labeled with the patient's identifiers. A. Labeled biopsies duodenum are multiple irregular tissue fragment(s) (measuring 2.3 x 0.4 x 0.1 cm in aggregate. Stained with eosin). Labeled A1. Jar 0. B. Labeled biopsies gastric are multiple irregular tissue fragment(s) (measuring 1.8 x 0.3 x 0.1 cm in aggregate. Stained with eosin). Labeled B1. Jar 0. C. Labeled polyp gastric is a single irregular tissue fragment(s) (measuring 1.3 x 0.6 x 0.2 cm.). Labeled C1. Jar 0. D. Labeled biopsies terminal ileum are multiple irregular tissue fragment(s) (measuring 2.8 x 0.4 x 0.1 cm in aggregate. Stained with eosin). Labeled D1. Jar 0. E. Labeled biopsies random colon are multiple irregular tissue fragment(s) (measuring 2.6 x 0.4 x 0.1 cm in aggregate. Stained with eosin). Labeled E1. Jar 0. [facility]/02/19/2024 13:52 PA(s): AMOS López By this signature, I attest that the above diagnosis is based upon my personal examination of the slides(and/or other material). Addenda/Procedures Microscopic slide review and interpretation for this case was performed at [facility], Department of Surgical Pathology, [address] [facility] [place] [place] [id number], [place] [address] CLIA # [id number] The performance characteristics of some immunohistochemical stains, fluorescence in-situ hybridization tests and immunophenotyping by flow cytometry cited in this report (if any) were determined by the Surgical Pathology and Flow Cytometry Departments at [facility] as part of an ongoing lead quality technician program and in compliance with federally mandated regulations drawn from the Clinical Laboratory Improvement Act of 1988 (CLIA '88). Some of these tests rely on the use of analyte specific reagents and are subject to specific labeling requirements by the US Food and Drug Administration. Such diagnostic tests may only be performed in a facility that is certified by the Department of Health and Human Services as a high complexity laboratory under CLIA '88. The FDA has determined that such clearance or approval is not necessary. This test is used for clinical purposes. It should not be regarded as investigational or for research. Nevertheless, federal rules concerning the medical use of analyte specific reagents require that the following disclaimer be attached to the report: This test was developed and its performance characteristics determined by the Surgical Pathology and Flow Cytometry Departments of [facility]. It has not been cleared or approved by the U. S. Food and Drug Administration. IMAGES AND SCANNED DOCUMENTS, IF INCLUDED, ONLY VIEWABLE IN PDF VERSION OF REPORT Nadia Davis MD LAB PATHOLOGY ORDERABLES Final Result PATHOLOGY [facility] [phone] * EGD (02/19/2024 12:50 PM PROPERTIES SUPERVISOR) Anatomical Region Laterality Modality Other Narrative Procedure Note Nadia Davis MD - 02/19/2024 12:50 PM CST ENDOSCOPY LAB Patient Name: Leonel Norris Procedure Date: 02/19/2024 12:50PM Date of : 1995 Admit Type: Outpatient Age: 28 Gender: Female Attending MD: Nadia Davis M.D. Room: [facility] ENDOSCOPY ROOM 01 Note Status: Finalized Procedure: Upper GI endoscopy Indications: Abdominal bloating, Diarrhea Providers: Nadia Davis M.D. Referring MD: Darinel Knott M.D. Medicines: Monitored Anesthesia Care Complications: No immediate complications. Estimated Blood Loss: Estimated blood loss was minimal. Procedure: Pre-Anesthesia Assessment: - Prior to the procedure, a History and Physicalwas performed, and patient medications, allergies and sensitivities were reviewed. The patient'stolerance of previous anesthesia was reviewed. - Immediately prior to administration ofmedications, the patient was re-assessed for adequacy to receive sedatives. After obtaining informed consent, the endoscope was passed under direct vision. Throughout theprocedure, the patient's blood pressure, pulse, and oxygen saturations were monitored continuously. The [id number] was introduced through the mouth, and advanced to the second part of duodenum. Findings: One superficial esophageal ulcer was found at the gastroesophageal junction. The lesion was 4 mm in largest dimension. The exam of the esophagus was otherwise normal. A single 8 mm sessile polyp was found in the gastric body. The polypwas removed with a cold snare. Resection and retrieval were complete. The entire examined stomach was normal otherwise. Biopsies wereobtained in the gastric body and in the gastric antrum with cold forceps for Helicobacter pylori testing. The examined duodenum was normal. Biopsies for histology were takenwith a cold forceps for evaluation of celiac disease. Impression: - Esophageal ulcer. - A single gastric polyp. Resected and retrieved. - Normal stomach otherwiseBiopsies were obtained in the gastric body and in the gastric antrum. . - Normal examined duodenum. Biopsied. Recommendation: - Use Prilosec (omeprazole) 20 mg PO BID for 12weeks. - Await pathology results. - Repeat upper endoscopy in 12 weeks to checkhealing. - - Electronically signed by Nadia Davis MD Nadia Davis M.D. 02/19/2024 1:03:51 PM Number of Addenda: 0 Note Initiated On: 02/19/2024 12:50 PM Nadia Davis MD ENDOSCOPY PROCEDURES Final Resu lt * POCT hCG, urine (02/19/2024) Pathologist [facility] HCG, ur, POC Negative Negative Lot Number [id number] QC Backgroud Clear Acceptable QC Control Line Acceptable Urine 02/19/2024 Historical Provider POINT OF CARE TEST ORDERA BLES Final Result * THINPREP TIS PAP REFLEX HPV mRNA E6/E7, CHLAMYDIA/N.GONORRHOEAE (12/31/2020 12:00 AM CDT) Pathologist [facility] CLINICAL INFORMATION: [facility] Comment:USES DEPO PROVERA LMP [facility] Comment:UNKNOWN Previous Pap [facility] Comment:INFORMATION NOT PROV IDED Prev. Bx [facility] Comment:INFORMATION NOT PROV IDED SOURCE: [facility] Comment:Cervix, Endocervix Pap, specimen adequacy [facility] Comment: Satisfactory for evaluation. Endocervical/transformation zone component present. HPV interp [facility] Comment:Negative for intraep ithelial lesion or malignancy. COMMENTS [facility] Comment: This Pap test has been evaluated with computer assisted technology. [employer] [facility] Comment: MVB, CT(ASCP) CT screening location: [place] [address] Administration [address] [address] [facility] Comment: EXPLANATORY NOTE: The Pap is a screening test for cervical cancer. It is not a diagnostic test and is subject to false negative and false positive results. It is most reliable when a satisfactory sample, regularly obtained, is submitted with relevant clinical findings and history, and when the Pap result is evaluated along with historic and current clinical information. C. trachomatis RNA NOT DETECTED NOT DETECTED [facility] N. gonorrhoeae RNA NOT DETECTED NOT DETECTED [facility] Comment [facility] Comment: The analytical performance characteristics of this assay, when used to test SurePath(TM) specimens have been determined by [facility]. The modifications have not been cleared or approved by the FDA. This assay has been validated pursuant to the CLIA regulations and is used for clinical purposes. For additional information, please refer to https://education.[employer]/faq/NWJ156 (This link is being provided for information/ educational purposes only.) 12/31/2020 01/03/2021 10: 17 AM PROPERTIES SUPERVISOR Narrative [facility] - 01/06/2021 3:15 PM PROPERTIES SUPERVISOR FASTING: UNKNOWN Leydi Medina DO LAB PATHOLOGY ORDERABLE S Final Result [place] [address] [address] [id number] [facility] [address] [place] [address] from Last 3 Months or Most Recently Relevant to Health Maintenance Insurance [facility] FEDERAL BCBS FEDERAL BCBS FEDERAL Advance Directives For more information, please contact: [phone] * Full Code (Latest Code Status on File) Date Activated Date Inactivated Comments 02/19/2024 11:13 AM 02/19/2024 6:24 PM Care Teams Vice Chair Relationship Specialty Start Date End Date Gladis Blanco NP [address] [place] [address] PCP - General Nurse Practitioner 04/07/24
--- OUTSIDE RECORDS SUMMARY | 2024-05-01 07:14 | XMS_ITS | Clinical Summary ---
Author Organization [facility] Address [address] [place] [address] Care Team Providers Care Maintenance Manager Name Role Phone Darinel Knott MD Primary Care Provider [phone] Source Comments [facility],non-owned Affiliates and Associated Physician Practices is amultiple site organization consisting of ambulatory clinics and hospital sitesin [place], [place], [place] and [place]. This disclosure is being madepursuant to the Care Everywhere program and may not contain all information available regarding this patient. Last updated 17.[facility] Allergies Active Allergy Reactions Criticality Noted Date Comments Sulfamethoxazole W-Trimethoprim Anaphylaxis High Sulfa drugs Medications * Be aware that medications may not be up to date on this document. Alwaysverify current medications with the patient. Medication Sig Dispensed Refills Start Date End Date Status ALPRAZolam (Xanax) 0.5 MG tablet Take 1 (one) tablet by mouth once daily as needed 10/26/2022 Active busPIRone (Buspar) 7.5 MG tablet Take 1 (one) tablet by mouth 2 times daily 05/18/2022 Active hydrOXYzine HCl (Atarax) 25 MG tablet TAKE 1 TABLET BY MOUTH TWICE A DAY NEEDED FOR PANIC ATTACK 12/11/2022 Active dicyclomine (Bentyl) 20 MG tablet Take 1 (one) tablet by mouth 4 times daily Active pantoprazole EC (Protonix) 40 MG tablet Take 1 (one) tablet by mouth 2 times daily 90 tablet 4 01/11/2023 Active Social History Tobacco Use Types Packs/Day Years Used Date Smoking Tobacco: Never Smokeless Tobacco: Never Tobacco Cessation:Counseling Given: Not Answered Alcohol Use Standard Drinks/Week Comments Yes 0 (1 standard drink = 0.6 oz pur e alcohol) rarely Sex and Gender Information Value Date Recorded Sex Assigned at Not on file Gender Identity Not on file Sexual Orientation Not on file Last Filed Vital Signs Vital Sign Reading Time Taken Comments Blood Pressure 130/88 01/11/2023 10:20 AM RADIOLOGY CLERK Pulse 94 01/11/2023 10:20 AM RADIOLOGY CLERK Temperature 36.2 C (97.1 F) 01/11/2023 10:20 AM RADIOLOGY CLERK Respiratory Rate - - Oxygen Saturation 100% 01/11/2023 10:20 AM RADIOLOGY CLERK Inhaled Oxygen Concentration - - Weight 96.6 kg (213 lb) 01/11/2023 10:20 AM RADIOLOGY CLERK Height 167.6 cm (5' 6 ) 01/11/2023 10:20 AM RADIOLOGY CLERK Body Mass Index 34.38 01/11/2023 10:20 AM RADIOLOGY CLERK Plan of Treatment Health Maintenance Due Date Last Done Comments PAP SMEAR 1995 HIV SCREENING 2009 HEPATITIS C SCREENING 09/12/2012 DTAP/TDAP/TD VACCINES (1 - Tdap) 2013 HEPATITIS B VACCINE (1 of 3 - 19+ 3-dose series) 2013 COVID-19 VACCINE (1 - 2023-2 5 season) 2023 INFLUENZA VACCINE (#1) 2023 DEPRESSION SCREENING 02/27/2024 ZOSTER VACCINE (1 of 2) 2044 HIB VACCINE Aged Out No longer eligi ble based on patient's age to complete this topic HPV VACCINE Aged Out No longer eligi ble based on patient's age to complete this topic MENINGOCOCCAL (Group B) VACCINE Aged Out No longer eligible based on patient's age to complete this topic MENINGOCOCCAL VACCINE Aged Out No ruben shekhar eligible based on patient's age to complete this topic PNEUMOCOCCAL VACCINE Aged Out No long er eligible based on patient's age to complete this topic Care Teams Maintenance Manager Relationship Specialty Start Date End Date Darinel Knott MD [address] [place] [id number] PCP - General Family Medicine 01/11/23
--- OUTSIDE RECORDS SUMMARY | 2024-05-01 07:14 | XMS_ITS | Referral Summary ---
Author Organization [facility] [address] [facility] Address [address] [place] [address] Care Team Providers Care Forestry Support Specialist Name Role Phone Gladis Blanco FABIEN Primary Care Provider [phone] Encounters Date Type Department Care Team Description 04/30/2024 10:45 AM LITHOGRAPHIC PROOFER Lab [facility] [address] [facility] [place] [address] Abnormal finding on GI tract imaging; Crohn's disease with other complication, unspecified gastrointestinal tract location (HCC); High risk medications (not anticoagulants) long-term use; Need for vaccination for pneumococcus 04/30/2024 9:30 AM LITHOGRAPHIC PROOFER Office Visit [facility] Gastroenterology [address] [place] [address] Medical Office Building [address] [place] [phone] Gerald Medina MD High risk medications (not anticoagulants) long-term use (Primary Dx); Abnormal finding on GI tract imaging; Crohn's disease with other complication, unspecified gastrointestinal tract location (HCC); Need for vaccination for pneumococcus 04/07/2024 Telephone [facility] Gastroenterology [address] [facility] 12th [place] [address] [place] [phone] Anabella Castro RN GI Return Call 04/01/2024 Telephone [facility] Gastroenterology [address] [place] [address] Medical Office Building [address], [address] [place] [phone] Maxine Lott LPN 03/29/2024 9:42 AM LITHOGRAPHIC PROOFER - 03/29/2024 11:59 PM LITHOGRAPHIC PROOFER Hospital Encounter [facility] [address] [place] [address] Nadia Davis MD Chronic diarrhea; Abnormal finding on GI tract imaging Discharge Disposition: Discharge to home or self care 03/27/2024 Telephone [facility] Gastroenterology [facility] Medical Office Building [address], [address] [place] [phone] Maxine Lott LPN Follow-up 03/04/2024 Telephone [facility] Gastroenterology [address] [facility] 12th [place] [address] [place] [address] Maxine Lott LPN Scheduling Testing/Treatment 02/19/2024 1:30 PM LITHOGRAPHIC PROOFER - 02/19/2024 2:30 PM LITHOGRAPHIC PROOFER Surgery [facility] Endoscopy [address] [address] Nadia Davis MD ESOPHAGOGASTRODUODENOSCOPY REMOVAL SNARE 02/19/2024 12:44 PM LITHOGRAPHIC PROOFER Anesthesia Event [facility] Endoscopy [address] [address] Rodriguez Milton MD 02/19/2024 10:53 AM LITHOGRAPHIC PROOFER - 02/19/2024 2:19 PM LITHOGRAPHIC PROOFER Hospital Encounter [facility] Endoscopy [address] [address] Nadia Davis MD Gastroesophageal reflux disease without esophagitis; Chronic diarrhea; Bloating; Abnormal finding on GI tract imaging Discharge Disposition: Discharge to home or self care from Last 3 Months Allergies Active Allergy Reactions Criticality Noted Date Comments Sulfa (Sulfonamide Antibiotics) Hives Medium 09/2015 Medications dicyclomine (BENTYL) 20 mg tablet TAKE ONE TABLET BY MOUTH EVERY 6 HOURS 04/01/19 21 Active famotidine (PEPCID) 20 mg tablet Take 1 tablet (20 mg total) by mouth 2 (two) times a day Active NOT IN DATABASE, PRESCRIPTION, Drug name: Nu Biome Dose: 1 packet Route: oral Frequency: daily [...] Abnormal finding on GI tract imaging 01/30/2024 Immunizations Immunization Administration Dates Next Due Pneumococcal Conjugate Pcv20 04/30/2024 Social History Tobacco Use Types Packs/Day Years [...] CDT Gender Identity Female 01/30/2024 9:10 PM LITHOGRAPHIC PROOFER Sexual Orientation Not on file Occupation Industry Job Start Date Job End Date Not on file Not on file Not on file Not on file Last Filed Vital Signs Vital Sign Reading Time Taken Comments Blood Pressure 108/77 04/30/2024 9:21 AM LITHOGRAPHIC PROOFER Pulse 86 04/30/2024 9:21 AM LITHOGRAPHIC PROOFER Temperature 36.7 C (98 F) 04/30/2024 9:21 AM LITHOGRAPHIC PROOFER Respiratory Rate 22 02/19/2024 2:05 PM LITHOGRAPHIC PROOFER Oxygen Saturation 100% 04/30/2024 9:21 AM LITHOGRAPHIC PROOFER Inhaled Oxygen Concentration - - Weight 78.5 kg (173 lb) 04/30/2024 9:21 AM LITHOGRAPHIC PROOFER Height 167.6 cm (5' 6 ) 04/30/2024 9:21 AM LITHOGRAPHIC PROOFER Body Mass Index 27.92 04/30/2024 9:21 AM LITHOGRAPHIC PROOFER Plan of Treatment Not on file Procedures Procedure Name Priority Date/Time Associated Diagnosis Comments EGFR Routine 04/30/2024 10:50 AM LITHOGRAPHIC PROOFER Abnormal finding on GI tract imaging Crohn's disease with other complication, unspecified gastrointestinal tract location (HCC) High risk medications (not anticoagulants) long-term use Need for vaccination for pneumococcus DIFFERENTIAL AUTO Routine 04/30/2024 10:50 AM LITHOGRAPHIC PROOFER Abnormal finding on GI tract imaging Crohn's disease with other complication, unspecified gastrointestinal tract location (HCC) High risk medications (not anticoagulants) long-term use Need for vaccination for pneumococcus VITAMIN D 25 HYDROXY Routine 04/30/2024 10:50 AM LITHOGRAPHIC PROOFER Abnormal finding on GI tract imaging Crohn's disease with other complication, unspecified gastrointestinal tract location (HCC) High risk medications (not anticoagulants) long-term use Need for vaccination for pneumococcus VITAMIN B12 Routine 04/30/2024 10:50 AM LITHOGRAPHIC PROOFER Abnormal finding on GI tract imaging Crohn's disease with other complication, unspecified gastrointestinal tract location (HCC) High risk medications (not anticoagulants) long-term use Need for vaccination for pneumococcus FERRITIN Routine 04/30/2024 10:50 AM LITHOGRAPHIC PROOFER Abnormal finding on GI tract imaging Crohn's disease with other complication, unspecified gastrointestinal tract location (HCC) High risk medications (not anticoagulants) long-term use Need for vaccination for pneumococcus IRON PROFILE W/ IBC Routine 04/30/2024 10:50 AM LITHOGRAPHIC PROOFER Abnormal finding on GI tract imaging Crohn's disease with other complication, unspecified gastrointestinal tract location (HCC) High risk medications (not anticoagulants) long-term use Need for vaccination for pneumococcus ERYTHROCYTE SEDIMENTATION RATE Routine 0 04/30/2024 10:50 AM LITHOGRAPHIC PROOFER Abnormal finding on GI tract imaging Crohn's disease with other complication, unspecified gastrointestinal tract location (HCC) High risk medications (not anticoagulants) long-term use Need for vaccination for pneumococcus CRP (ACUTE PHASE) Routine 04/30/2024 10:50 AM LITHOGRAPHIC PROOFER Abnormal finding on GI tract imaging Crohn's disease with other complication, unspecified gastrointestinal tract location (HCC) High risk medications (not anticoagulants) long-term use Need for vaccination for pneumococcus COMPREHENSIVE METABOLIC PANEL Routine 10:50 AM LITHOGRAPHIC PROOFER Abnormal finding on GI tract imaging Crohn's disease with other complication, unspecified gastrointestinal tract location (HCC) High risk medications (not anticoagulants) long-term use Need for vaccination for pneumococcus CBC WITH AUTO DIFFERENTIAL Routine 04/30 10:50 AM LITHOGRAPHIC PROOFER Abnormal finding on GI tract imaging Crohn's disease with other complication, unspecified gastrointestinal tract location (HCC) High risk medications (not anticoagulants) long-term use Need for vaccination for pneumococcus HEPATITIS B SURFACE ANTIBODY (IMMUNE STATUS) Routine 04/30/2024 10:50 AM LITHOGRAPHIC PROOFER Abnormal finding on GI tract imaging Crohn's disease with other complication, unspecified gastrointestinal tract location (HCC) High risk medications (not anticoagulants) long-term use Need for vaccination for pneumococcus HEPATITIS B SURFACE ANTIGEN Routine 06/2024 10:50 AM LITHOGRAPHIC PROOFER Abnormal finding on GI tract imaging Crohn's disease with other complication, unspecified gastrointestinal tract location (HCC) High risk medications (not anticoagulants) long-term use Need for vaccination for pneumococcus HEPATITIS B CORE ANTIBODY, TOTAL Routine 04/30/2024 10:50 AM LITHOGRAPHIC PROOFER Abnormal finding on GI tract imaging Crohn's disease with other complication, unspecified gastrointestinal tract location (HCC) High risk medications (not anticoagulants) long-term use Need for vaccination for pneumococcus MRI ABDOMENT ENTEROGRAPHY W WO CONTRAST Schedule Routine, Read Routine (OP Routine) 03/29/2024 11:36 AM LITHOGRAPHIC PROOFER Chronic diarrhea Abnormal finding on GI tract imaging COLONOSCOPY 02/19/2024 1:03 PM LITHOGRAPHIC PROOFER SURGICAL PATHOLOGY Routine 02/19/2024 12:55 PM LITHOGRAPHIC PROOFER Gastroesophageal reflux disease without esophagitis Chronic diarrhea Bloating Abnormal finding on GI tract imaging EGD 02/19/2024 12:50 PM LITHOGRAPHIC PROOFER ENDO ADD ON ESOPHAGOGASTRODUODENOSCOPY BIOPSY 02/19/2024 12:47 PM LITHOGRAPHIC PROOFER Gastroesophageal reflux disease without esophagitis Chronic diarrhea Bloating Abnormal finding on GI tract imaging COLON BIOPSY 02/19/2024 12:47 PM LITHOGRAPHIC PROOFER Gastroesophageal reflux disease without esophagitis Chronic diarrhea Bloating Abnormal finding on GI tract imaging ESOPHAGOGASTRODUODENOSCOPY REMOVAL SNARE 02/19/2024 12:47 PM LITHOGRAPHIC PROOFER Gastroesophageal reflux disease without esophagitis Chronic diarrhea Bloating Abnormal finding on GI tract imaging POCT HCG, URINE Routine 02/19/2024 THINPREP TIS PAP REFLEX HPV MRNA E6/E7, CHLAMYDIA/N.GONORRHOEAE Routine 12/31/2020 12:00 AM CDT from Last 3 Months or Most Recently Relevant to Health Maintenance Results * eGFR (04/30/2024 10:50 AM LITHOGRAPHIC PROOFER) eGFR 89 >=60 mL/min/1. 73 m2 Comment: [...] reviewed 2020. Blood 04/30/2024 10:5 0 AM LITHOGRAPHIC PROOFER 04/30/2024 11:00 AM LITHOGRAPHIC PROOFER us Gerald Medina MD LAB BLOOD ORDERABLES Final Result [facility] [address] [facility]. [place] [address] * (ABNORMAL) Differential, auto (04/30/2024 10:50 AM LITHOGRAPHIC PROOFER) Neutrophil abs 7.8(H) 1.5 - 6.5 K/cumm Imm gran abs 0.1 0.0 - 0.1 K/cumm [facility] Lymphocyte abs 1.5 0.8 - 3.3 K/cumm [facility] Monocyte abs 0.6 0.2 - 0.8 K/cumm [facility] Eosinophil abs 0.0 0.0 - 0.5 K/cumm [facility] Basophil abs 0.0 0.0 - 0.1 K/cumm [facility] Neutrophil pct 77.8 % [facility] [place] Comment: Interpretive Data Percent cell count [...] on 2017. Blood 04/30/2024 10:5 0 AM LITHOGRAPHIC PROOFER 04/30/2024 11:00 AM LITHOGRAPHIC PROOFER Gerald Medina MD LAB BLOOD ORDERABLES Final Result Performing Organization Address City/State/[facility] Co de Phone Number SARAH [place] [address] [facility] Department of Laboratories [place], [place] [id number] * Iron profile w/ IBC (04/30/2024 10:50 AM LITHOGRAPHIC PROOFER) Iron 104 35 - 145 mcg/dL Comment:Testing performed by : [facility], [address] [place] [address]., [id number] TIBC 269 250 - 400 mcg/dL SARAH [place] Comment:Testing performed by : [facility], [address] [place] [address]., [id number] Transferrin saturation 39 20 - 50 % SARAH [place] Comment:Testing performed by : [facility], [address] [place] [address]., [id number] Blood 04/30/2024 10:5 0 AM LITHOGRAPHIC PROOFER 04/30/2024 3:01 PM LITHOGRAPHIC PROOFER Gerald Medina MD LAB BLOOD ORDERABLES Final Result Performing Organization Address City/[facility] de Phone Number SARAH VYAS [address] [address] [employer] [place], [place] [id number] * (ABNORMAL) CBC with auto differential (04/30/2024 10:50 AM LITHOGRAPHIC PROOFER) [facility] WBC 10.1(H) 3.8 - 9.9 K/cumm Hgb 15.3 11.9 - 15.5 g/dL [facility] Hct 47.5(H) 35.6 - 45.5 % [facility] Plt 265 150 - 400 K/cumm [facility] MPV 11.3 9.1 - 12.3 fL [facility] W RBC 5.35(H) 3.90 - 5.20 M/cumm [facility] MCV 88.8 81.3 - 96.4 fL [facility] WCH MCH 28.6 27.1 - 33.[address] [facility] MCHC 32.2(L) 32.3 - 35.7 g/dL [facility] RDW CV 12.8 11.1 - 14.9 % [facility] RDW SD 41.6 35.7 - 48.[address] [facility] NRBC abs 0.00 0.00 - 0.01 K/cumm [facility] W Blood 04/30/2024 10:5 0 AM LITHOGRAPHIC PROOFER 04/30/2024 11:00 AM LITHOGRAPHIC PROOFER Gerald Medina MD LAB BLOOD ORDERABLES Final Result Performing Organization Address [facility] Co de Phone Number SARAH VYASCH [address] [email or web address]. [place] [address] * Hepatitis B core antibody, total Blood (04/30/2024 10:50 AM LITHOGRAPHIC PROOFER) [facility] Hep B core IgG/IgM Nonreactive Nonreactive Comment:Testing performed by : [facility], [address] [facility], [place]., [address] Blood 04/30/2024 10:5 0 AM LITHOGRAPHIC PROOFER 04/30/2024 1:14 PM LITHOGRAPHIC PROOFER Gerald Medina MD LAB MICROBIOLOGY - GENERAL ORDERABLES Final Result Performing Organization Address [facility] Co de Phone Number SARAH VYASCH [address] [employer] [address] * (ABNORMAL) Vitamin D 25 hydroxy (04/30/2024 10:50 AM LITHOGRAPHIC PROOFER) Vitamin D 25-OH 20(L) 30 - 80 ng/mL Blood 04/30/2024 10:5 0 AM LITHOGRAPHIC PROOFER 04/30/2024 11:00 AM LITHOGRAPHIC PROOFER Gerald Medina MD LAB BLOOD ORDERABLES Final Result Performing Organization Address [facility] de Phone Number [facility]AH [facility] [address] [facility] [place] [address] * Hepatitis B surface antibody (immune status) Blood (04/30/2024 10:50 AM LITHOGRAPHIC PROOFER) HBsAb (immune status) Nonreactive Comment: This result is consistent with a lack of immunity to Hepatitis B Virus when used in the setting of routine screening. Current interpretative data was last revised on 21 Testing performed by: [facility], [address] [place] [address]., [id number] Blood 04/30/2024 10:5 0 AM LITHOGRAPHIC PROOFER 04/30/2024 1:14 PM LITHOGRAPHIC PROOFER Gerald Medina MD LAB MICROBIOLOGY - GENERAL ORDERABLES Final Result Performing Organization Address [facility] Co de Phone Number [facility] [address] [facility] [place] [address] * Hepatitis B Surface Antigen Blood (04/30/2024 10:50 AM LITHOGRAPHIC PROOFER) HepBsAg Nonreactive Nonreactive Comment:Testing performed by : [facility], [address] [place] [address]., [id number] Blood 04/30/2024 10:5 0 AM LITHOGRAPHIC PROOFER 04/30/2024 5:44 PM LITHOGRAPHIC PROOFER Gerald Medina MD LAB MICROBIOLOGY - GENERAL ORDERABLES Final Result Performing Organization Address [facility] Co de Phone Number [facility] [address] [employer] [address] * Erythrocyte sedimentation rate (04/30/2024 10:50 AM LITHOGRAPHIC PROOFER) Erythrocyte sedimentation rate 15 1 - 20 mm/hr Blood 04/30/2024 10:5 0 AM LITHOGRAPHIC PROOFER 04/30/2024 11:00 AM LITHOGRAPHIC PROOFER Gerald Medina MD LAB BLOOD ORDERABLES Final Result Performing Organization Address [facility] de Phone Number [facility]AH [facility] [address] [email or web address] [address] * (ABNORMAL) CRP (acute phase) (04/30/2024 10:50 AM LITHOGRAPHIC PROOFER) CRP 11.2(H) <=10.0 mg/L Blood 04/30/2024 10:5 0 AM LITHOGRAPHIC PROOFER 04/30/2024 11:00 AM LITHOGRAPHIC PROOFER Gerald Medina MD LAB BLOOD ORDERABLES Final Result Performing Organization Address [facility] de Phone Number [facility] [address] [email or web address] [facility] [address] * (ABNORMAL) Ferritin (04/30/2024 10:50 AM LITHOGRAPHIC PROOFER) Ferritin 216(H) 15 - 150 ng/mL Comment:Testing performed by : [facility], [address] [place] [address]., [id number] Blood 04/30/2024 10:5 0 AM LITHOGRAPHIC PROOFER 04/30/2024 3:01 PM LITHOGRAPHIC PROOFER Gerald Medina MD LAB BLOOD ORDERABLES Final Result Performing Organization Address [facility] Co de Phone Number SARAH ENGLAND [address] [facility] [place] [address] * Vitamin B12 (04/30/2024 10:50 AM LITHOGRAPHIC PROOFER) Pathologist [facility] Vitamin B12 461 230 - 1,250 pg/mL Comment:Testing performed by : [facility], [facility] [facility], [place]., [address] Blood 04/30/2024 10:5 0 AM LITHOGRAPHIC PROOFER 04/30/2024 3:01 PM LITHOGRAPHIC PROOFER Gerald Medina MD LAB BLOOD ORDERABLES Final Result Performing Organization Address [facility] de Phone Number SARAH ENGLAND [address] [facility] [place] [address] * Comprehensive metabolic panel (04/30/2024 10:50 AM LITHOGRAPHIC PROOFER) Pathologist [facility] Sodium 138 135 - 145 mmol/L Potassium, pl 4.2 3.3 - 4.9 mmol/L [facility] Chloride 100 97 - 110 mmol/L [facility] CO2 25 22 - 32 mmol/L [facility] Anion gap 13 2 - 15 mmol/L [facility] BUN 10 6 - 25 mg/dL [facility] Creatinine 0.90 0.60 - 1.10 mg/dL [facility] Glucose 101 70 - 199 mg/dL [facility] Comment: Interpretive Data Fasting glucose >/= [...] classification and Diagnosis of Diabetes Diabetes Care 202; 46: S19-S40. Current interpretive data was last [...] [facility] Blood 04/30/2024 10:5 0 AM LITHOGRAPHIC PROOFER 04/30/2024 11:00 AM LITHOGRAPHIC PROOFER us Gerald Medina MD LAB BLOOD ORDERABLES Final Result [facility] [address] [facility]. [place] [address] * MRI Abdomen Enterography W WO Contrast (03/29/2024 11:36 AM LITHOGRAPHIC PROOFER) Anatomical Region Laterality Modality Body N/A Magnetic Resonan ce 03/31/2024 11:3 5 AM LITHOGRAPHIC PROOFER Impressions 03/31/2024 12:50 PM LITHOGRAPHIC PROOFER 1. Active inflammation involving the distal 4 [...] Supriya Escobedo M.D. Narrative 03/31/2024 12:50 PM LITHOGRAPHIC PROOFER EXAMINATION: MAGNETIC RESONANCE IMAGING OF THE ABDOMEN [...] by: Supriya Escobedo M.D. Nadia Davis MD IM MRI PROCEDURES Final Result * Colonoscopy (02/19/2024 1:03 PM LITHOGRAPHIC PROOFER) Anatomical Region Laterality Modality Other Narrative Procedure Note Nadia Davis MD - 02/19/2024 1:03 PM CST ENDOSCOPY LAB Patient Name: Leonel Norris Procedure Date: 02/19/2024 1:03 PM Date of : 1995 Admit Type: Outpatient Age: 28 Gender: Female Attending MD: Nadia Davis M.D. Room: [facility] ENDOSCOPY ROOM 01 Note Status: Finalized Procedure: [...] The scope was passed under direct vision.The [id number] was introduced through the anusand advanced to [...] 0 Note Initiated On: 02/19/2024 1:03 PM Nadia Davis MD ENDOSCOPY PROCEDURES Final Resu lt * Surgical pathology (02/19/2024 12:55 PM LITHOGRAPHIC PROOFER) Tissue (Duodenum, Biopsy) 02/19/2024 12:55 PM LITHOGRAPHIC PROOFER Tissue (Gastric/Stomach biopsy) 02/19/2024 12:57 PM LITHOGRAPHIC PROOFER Tissue (Polyp(s), colon/colorectal, esophageal, gastric) 02/19/2024 12:59 PM LITHOGRAPHIC PROOFER Tissue (Ileum, Biopsy) 02/19/2024 1:12 PM LITHOGRAPHIC PROOFER Tissue (Colon, Biopsy) 02/19/2024 1:16 PM LITHOGRAPHIC PROOFER Narrative PATHOLOGY W - 02/22/2024 10:06 AM LITHOGRAPHIC PROOFER EPIC results best viewed via link to PDF [facility] An[facility] Carm[facility] [place] [address] Note to Patients: This report may contain [...] Gender: F : 1995 (Age: 28) Address: [address] [place] [id number] Hospital #: [id number] Taken:02/19/2024 Received:02/19/2024 Reported: 02/22/2024 Patient Type: [facility] SAME Client [facility] Service: Gastro Location: Physician(s): Fredi Zimmerman M.D. [...] - Colonic mucosa with no pathologic abnormality tc/02/21/2024 09:50 By this signature, I attest that [...] Stained with eosin). Labeled E1. Jar 0. cnewho/02/19/2024 13:52 PA(s): AMOS López By this signature, I attest that the above diagnosis is based upon my personal examination of the slides(and/or other material). Addenda/Procedures Microscopic slide review and interpretation for this case was performed at [facility], Department of Surgical Pathology, [address] [id number], [place] [address] CLIA # [id number] The performance characteristics of some immunohistochemical stains, fluorescence in-situ hybridization tests and immunophenotyping by flow cytometry cited in this report (if any) were determined by the Surgical Pathology and Flow Cytometry Departments at [facility] as part of an ongoing senior software quality analyst program and in compliance with federally mandated [...] Surgical Pathology and Flow Cytometry Departments of [facility]. It has not been cleared or approved by the U. S. Food and Drug Administration. IMAGES AND SCANNED DOCUMENTS, IF INCLUDED, ONLY VIEWABLE IN PDF VERSION OF REPORT Nadia Davis MD LAB PATHOLOGY ORDERABLES Final Result PATHOLOGY [facility] [phone] * EGD (02/19/2024 12:50 PM LITHOGRAPHIC PROOFER) Anatomical Region Laterality Modality Other Narrative Procedure Note Nadia Davis MD - 02/19/2024 12:50 PM CST ENDOSCOPY LAB Patient Name: Leonel Norris Procedure Date: 02/19/2024 12:50PM Date of : 1995 Admit Type: Outpatient Age: 28 Gender: Female Attending MD: Nadia Davis M.D. Room: [facility] ENDOSCOPY ROOM 01 Note Status: Finalized Procedure: [...] and oxygen saturations were monitored continuously. The [id number] was introduced through the mouth, and advanced [...] Resu lt * POCT hCG, urine (02/19/2024) HCG, ur, POC Negative Negative Lot Number [id number] QC Backgroud Clear Acceptable QC Control Line Acceptable Urine 02/19/2024 Historical Provider POINT OF CARE TEST ORDERA BLES Final Result * THINPREP TIS PAP REFLEX HPV mRNA E6/E7, CHLAMYDIA/N.GONORRHOEAE (12/31/2020 12:00 AM CDT) CLINICAL INFORMATION: [facility] Comment:USES DEPO PROVERA LMP [facility] Comment:UNKNOWN Previous Pap [facility] Comment:INFORMATION NOT PROV IDED Prev. Bx [facility] Comment:INFORMATION NOT PROV IDED SOURCE: [facility] Comment:Cervix, Endocervix Pap, specimen adequacy [facility] Comment: Satisfactory for evaluation. Endocervical/transformation zone component present. HPV interp [facility] Comment:Negative for intraep ithelial lesion or malignancy. COMMENTS [facility] Comment: This Pap test has been evaluated with computer assisted technology. [employer] [facility] Comment: MVB, CT(ASCP) CT screening location: [place] [address] Administration JULI [place] [address] [facility] [employer] [facility] Comment: EXPLANATORY NOTE: The Pap is [...] C. trachomatis RNA NOT DETECTED NOT DETECTED [facility] N. gonorrhoeae RNA NOT DETECTED NOT DETECTED [facility] Comment [facility] [place] Comment: The analytical performance characteristics of this assay, when used to test SurePath(TM) specimens have been determined by [employer]. The modifications have not been cleared or approved by the FDA. This assay has been validated pursuant to the CLIA regulations and is used for clinical purposes. For additional information, please refer to https://education.WeTOWNS/faq/EQJ172 (This link is being provided for information/ educational purposes only.) 12/31/2020 01/03/2021 10: 17 AM LITHOGRAPHIC PROOFER Narrative [facility] - 01/06/2021 3:15 PM LITHOGRAPHIC PROOFER FASTING: UNKNOWN us Leydi Medina DO LAB PATHOLOGY ORDERABLE S Final Result [facility] [address] [address] [id number] [employer] [address] [place] [address] from Last 3 Months or Most Recently Relevant to Health Maintenance Insurance [id number] [place] [address] [address] [place] [address] FED[employer]AL FEDERAL Advance Directives For more information, please contact: [phone] * Full Code (Latest Code Status on File) Date Activated Date Inactivated Comments 02/19/2024 11:13 AM 02/19/2024 6:24 PM Care Teams Forestry Support Specialist Relationship Specialty Start Date End Date Gladis Blanco NP [address] [place] [id number] PCP - General Nurse Practitioner 04/07/24
--- OUTSIDE RECORDS SUMMARY | 2024-05-01 07:14 | XMS_ITS | Continuity of Care Document ---
Author Organization [facility] Address [address] [place] [address] Phone Care Team Providers Care Feed Mill Manager Name Role Phone Zion Alex MD Unavailable [...] Diagnoses Date Provider Providers Copied on Encounter [facility], [address], [place], [place], [id number] , tel: [phone] [facility] No Information [address] [place], [address], [place]. tel: [phone] [facility], [address], [place], [place], [id number] , tel: [phone] [facility] Abdominal pain (chief complaint) GI bleeding (chief complaint) Diarrhea (chief complaint) Abdominal pain, epigastricBlood in stoolIrritable bowel syndrome with diarrhea 0 [address] Alex [place], [address], [place]. tel:[phone] Referring Provider: Zion Alex, [address], [place], [address]. tel:[phone] Family History Family Member Type Diagnosis Age At Onset No Information Payers Payer name Insurance type Covered alliance party ID Dawit arvizu(s) CANDELARIO O CI [id number] Social History Type Description Quantity Date Captured [...] Additional Infor wale ansol HC supp one AR BIDIf not improving may need colonoscopy Related to Blood in stool Upper endoscopy sche duled, risk, benefits, alternatives explained.continue Zegridavoid NSAIDSneed to get labs [facility] Related to Abdominal pain, epigastric check CBC, CMP, lipa seimodium PRNmay need colonoscopy, trial of Viberzi ?patient will bring labs from [facility] for review ( had kidney stones probably unrelated )FODMAP diet papers givenSB Bx at time of EGD Related to Irritable bowel syndrome with diarrhea Handout Assessments Type Assessment Date No Information Patient Care Teams Name Effective Dates (start - stop) Status Members No Information
--- OUTSIDE RECORDS SUMMARY | 2024-05-01 07:14 | XMS_ITS | Referral Summary ---
Author Organization [facility] Address [address] [place] [address] Care Team Providers Care Vegetable Farmer Name Role Phone Darinel Knott MD Primary Care Provider [phone] Source Comments [facility],non-owned Affiliates and Associated Physician Practices is amultiple site organization consisting of ambulatory clinics and hospital sitesin [place], [place], [place] and [place]. This disclosure is being madepursuant to the Care Everywhere program and may not contain all information available regarding this patient. 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 Pulse 94 01/11/2023 10:20 AM DARKROOM WORKER Temperature 36.2 C (97.1 F) 01/11/2023 10:20 AM DARKROOM WORKER Respiratory Rate - - Oxygen Saturation 100% 01/11/2023 10:20 AM DARKROOM WORKER Inhaled Oxygen Concentration - - Weight 96.6 kg (213 lb) 01/11/2023 10:20 AM DARKROOM WORKER Height 167.6 cm (5' 6 ) 01/11/2023 10:20 AM DARKROOM WORKER Body Mass Index 34.38 01/11/2023 10:20 AM DARKROOM WORKER Plan of Treatment Not on file Care Teams Vegetable Farmer Relationship Specialty Start Date End Date Darinel Knott MD [address] [place] [phone] PCP - General Family Medicine 01/11/23
--- OUTSIDE RECORDS SUMMARY | 2024-05-01 07:14 | XMS_ITS | Patient Health Summary ---
Author Organization [facility] Address [address] [place] [address] Care Team Providers Care Bladder Trimmer Name Role Phone Darinel Knott MD Primary Care Provider [phone] Note from [facility],non-owned Affiliates and Associated Physician Practices is amultiple site organization consisting of ambulatory clinics and hospital sitesin [place], [place], [place] and [place]. This disclosure is being madepursuant to the Care Everywhere program and may not contain all information available regarding this patient. Last updated 17.[facility] Allergies * Sulfamethoxazole W-Trimethoprim(Anaphylaxis) -High Criticality Medications * Be aware that medications may not be up to date on this document. Alwaysverify current medications with the patient. * ALPRAZolam (Xanax) 0.5 MG tablet(Started 10/26/2022) Take 1 (one) tablet by mouth once daily as needed * busPIRone (Buspar) 7.5 MG tablet(Started 05/18/2022) Take 1 (one) tablet by mouth 2 times daily * hydrOXYzine HCl (Atarax) 25 MG tablet(Started 12/11/2022) TAKE 1 TABLET BY MOUTH TWICE A DAY NEEDED FOR PANIC ATTACK * dicyclomine (Bentyl) 20 MG tablet Take 1 (one) tablet by mouth 4 times daily * pantoprazole EC (Protonix) 40 MG tablet(Started 01/11/2023) Take 1 (one) tablet by mouth 2 times daily 4 refills by 01/11/2024 Social History Tobacco Use Types Packs/Day Years [...] Comments Blood Pressure 130/88 01/11/2023 10:20 AM [employer] Pulse 94 01/11/2023 10:20 AM [employer] Temperature 36.2 C (97.1 F) 01/11/2023 10:20 AM [employer] Respiratory Rate - - Oxygen Saturation 100% 01/11/2023 10:20 AM [employer] Inhaled Oxygen Concentration - - Weight 96.6 kg (213 lb) 01/11/2023 10:20 AM [employer] Height 167.6 cm (5' 6 ) 01/11/2023 10:20 AM [employer] Body Mass Index 34.38 01/11/2023 10:20 AM [employer] Procedures * TISSUE TRANSGLUTAMINASE AB IGA(Performed 01/11/2023) Performed for Generalized abdominal pain * C-REACTIVE PROTEIN(Performed 01/11/2023) Performed for Generalized abdominal pain * ERYTHROCYTE SEDIMENTATION RATE(Performed 01/11/2023) Performed for Generalized abdominal pain Results * TISSUE TRANSGLUTAMINASE AB IGA (01/11/2023 12:05 PM [employer]) Tissue Transglutaminase (tTG) Ab, IgA 1.40 0.00 - 4.99 FLU 01/15/2023 4:41 PM [employer] [facility] ([facility]) Comment: INTERPRETIVE INFORMATION: Tissue Transglutaminase (tTG) Antibody, IgA Presence of the tissue transglutaminase (tTG) IgA antibody is associated with gluten-sensitive enteropathies such as celiac disease and dermatitis herpetiformis. Individuals with positive results should be confirmed with small intestinal biopsy to establish celiac disease diagnosis. tTG IgA antibody concentrations greater than 50 FLU exhibits higher correlation with results of duodenal biopsies consistent with celiac disease. For antibody concentrations greater than or equal to 5 FLU but less than 10 FLU, additional testing for endomysial (VÍCTOR) IgA concentrations may improve the positive predictive value for disease. A decrease in tTG IgA antibody concentration after initiation of a gluten-free diet may indicate a response to therapy. Blood BLOOD SPECIMEN / Unknown Lab Venipuncture / Unknown 01/11/2023 12:05 PM [employer] 01/11/2023 12:17 PM [employer] Joe Barajas MD LAB - SEROLOGY ORDER [facility] [employer] ([facility]) [address] [place] [address], [facility] * (ABNORMAL) C-REACTIVE PROTEIN (01/11/2023 12:05 PM [employer]) C-Reactive Protein 1.2(H) <=0.5 mg/dL 01/11/2023 1:24 PM [employer] [facility] Blood BLOOD SPECIMEN / Unknown Lab Venipuncture / Unknown 01/11/2023 12:05 PM [employer] 01/11/2023 12:17 PM [employer] Joe Barajas MD LAB - CHEMISTRY ORDE RABLES Performing Organization Address City/[facility]/ZIP Co de Phone Number [place] [address] [place] [address], [facility] [phone] * (ABNORMAL) ERYTHROCYTE SEDIMENTATION RATE (01/11/2023 12:05 PM [employer]) Erythrocyte Sedimentation Rate Westergren 29(H) 0 - 20 MM/HR 01/11/2023 12:35 PM [employer] [facility] Blood BLOOD SPECIMEN / Unknown Lab Venipuncture / Unknown 01/11/2023 12:05 PM [employer] 01/11/2023 12:20 PM [employer] Joe Barajas MD LAB - HEMATOLOGY ORD ERABLES [facility] [address] [place] [id number], [place] [phone] Care Teams Bladder Trimmer Relationship Specialty Start Date End Date Darinel Knott MD [address] [place] [phone] PCP - General Family Medicine 01/11/23
[2024-05-01 07:20] VITALS: BP 120/87; PULSE 92; RESP 20; TEMP 36.3; O2SAT 98
[2024-05-01 07:27] LABS: BEDSIDEPREGUCG Negative (Negative)
[2024-05-01 07:39] LABS: Basophils Percent Auto 0.2 % (0.2-1.2); Eosinophils Absolute Auto 0.1 K/mm3 (0-0.3); Eosinophils Percent Auto 0.9 % (0-4.4); Hematocrit 43.6 % (37.0-47.0); Hemoglobin 14.3 g/dL (12.0-15.0); Immature Granulocyte Absolute 0.04 K/mm3 (0.00-0.031); Immature Granulocyte Percent A 0.5 % (0-0.5); Lymphocytes Absolute Auto 1.67 K/mm3 (0.9-3.2); Lymphocytes Percent Auto 19.8 % (18.3-44.2); Mean Corpuscular HGB Conc 32.8 g/dl (32-36); Mean Corpuscular Hemoglobin 28.8 pg (26-34); Mean Corpuscular Volume 87.9 fl (80-100); Monocytes Absolute Auto 0.5 K/mm3 (0.1-0.6); Monocytes Percent Auto 5.6 % (2.6-8.5); Neutrophils Absolute Auto 6.2 K/mm3 (1.3-6.7); Platelet Count Result 257 k/mm3 (150-375); Red Blood Count 4.96 M/mm3 (4.2-5.4); Red Cell Distribution Width 12.8 % (11.5-14.5); White Blood Count 8.5 K/mm3 (4.5-10.0)
[2024-05-01] MEDS: HYDROmorphone HCL INJ (*CRX) 1 MG/ML SYR IV PUSH (07:52)
[2024-05-01 07:53] LABS: Alanine Aminotransferase 32 U/L (6-35); Albumin Level 4.4 g/dL (3.5-5.1); Alkaline Phosphatase 85 U/L (38-126); Anion Gap 12 mmol/L (4-12); Aspartate Amino Transferase 23 U/L (14-36); Bilirubin,Total 0.6 mg/dL (0.2-1.3); Blood Urea Nitrogen 11 mg/dL (7-17); Calcium 9.2 mg/dL (8.4-10.2); Carbon Dioxide 24 mmol/L (22-30); Chloride 103 mmol/L (98-107); Estimated CRCL calculation 105 ml/min; Estimated Glomerular Filt Rate > 60; Glucose 111 mg/dL (65-110); Potassium 3.9 mmol/L (3.4-5.0); Sodium 139 mmol/L (137-145)
[2024-05-01] MEDS: ONDANSETRON INJ 4 MG/2 ML VIAL IV PUSH ×2 (07:53→09:32)
[2024-05-01 08:11] LABS: Add Urine Microscopic? YES; Appearance Urine Cloudy (Clear); Bacteria Urine 2+ /hpf; Bilirubin Urine Negative (Negative); Blood Urine 2+ (Negative); Color Urine Dark Yellow (Yellow); Glucose Urine UA Negative (Negative); Ketones Urine Trace mg/dL (Negative); Leukocyte Esterase Ur 1+ LEU/UL (Negative); Nitrate Urine Negative (Negative); Non Pathogenic Casts 0-2; Protein Urine 2+ mg/dL (Negative); Specific Grav Ur > 1.045 (1.001-1.035); Squamous Epithelial Cell Urine Moderate /hpf (Few); WBC Urine >100 /hpf (0-3)
--- OUTSIDE RECORDS SUMMARY | 2024-05-01 08:55 | XMS_ITS | Clinical Summary ---
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 Name Role Phone Gladis Blanco FABIEN Primary Care Provider [phone] Allergies Active Allergy Reactions Criticality Noted Date [...] Department Care Team Description 04/30/2024 10:45 AM SWITCHMAN SUPERVISOR Lab [facility] [address] [place] [address] Abnormal finding on GI tract imaging; Crohn's disease with other complication, unspecified gastrointestinal tract location (HCC); High risk medications (not anticoagulants) long-term use; Need for vaccination for pneumococcus 04/30/2024 9:30 AM SWITCHMAN SUPERVISOR Office Visit [facility] Gastroenterology [address] [place] [address] Medical Office Building [address] [place] [address] Gerald Medina MD High risk medications (not anticoagulants) long-term use (Primary Dx); Abnormal finding on GI tract imaging; Crohn's disease with other complication, unspecified gastrointestinal tract location (HCC); Need for vaccination for pneumococcus 04/07/2024 Telephone [facility]ology [address] [facility] Medicine [address]th [place] [address] [place] [address] Anabella Castro RN GI Return Call 04/01/2024 Telephone [facility] [address] [place] [address] Medical Office Building [address], [address] [place] [address] Maxine Lott LPN 03/29/2024 9:42 AM SWITCHMAN SUPERVISOR - 03/29/2024 11:59 PM SWITCHMAN SUPERVISOR Hospital Encounter [facility] [address] [place] [address] Nadia Davis MD Chronic diarrhea; Abnormal finding on GI tract imaging Discharge Disposition: Discharge to home or self care 03/27/2024 Telephone [facility] [address] [place] [address] Medical Office Building [address], [address] [place] [address] Maxine Lott LPN Follow-up 03/04/2024 Telephone [facility] [address] [facility] 12th [place] [address] [place] [address] Maxine Lott LPN Scheduling Testing/Treatment 02/19/2024 1:30 PM SWITCHMAN SUPERVISOR - 02/19/2024 2:30 PM SWITCHMAN SUPERVISOR Surgery [facility] Endoscopy [address] [address] Nadia Davis MD ESOPHAGOGASTRODUODENOSCOPY REMOVAL SNARE 02/19/2024 12:44 PM SWITCHMAN SUPERVISOR Anesthesia Event [facility] Endoscopy [address] [address] Rodriguez Milton MD 02/19/2024 10:53 AM SWITCHMAN SUPERVISOR - 02/19/2024 2:19 PM SWITCHMAN SUPERVISOR Hospital Encounter [facility] Endoscopy [address] [address] Nadia Davis MD Gastroesophageal reflux disease without [...] CDT Gender Identity Female 01/30/2024 9:10 PM SWITCHMAN SUPERVISOR Sexual Orientation Not on file Occupation [...] Comments Blood Pressure 108/77 04/30/2024 9:21 AM SWITCHMAN SUPERVISOR Pulse 86 04/30/2024 9:21 AM SWITCHMAN SUPERVISOR Temperature 36.7 C (98 F) 04/30/2024 9:21 AM SWITCHMAN SUPERVISOR Respiratory Rate 22 02/19/2024 2:05 PM SWITCHMAN SUPERVISOR Oxygen Saturation 100% 04/30/2024 9:21 AM SWITCHMAN SUPERVISOR Inhaled Oxygen Concentration - - Weight 78.5 kg (173 lb) 04/30/2024 9:21 AM SWITCHMAN SUPERVISOR Height 167.6 cm (5' 6 ) 04/30/2024 9:21 AM SWITCHMAN SUPERVISOR Body Mass Index 27.92 04/30/2024 9:21 AM SWITCHMAN SUPERVISOR Plan of Treatment Health Maintenance Due [...] Diagnosis Comments EGFR Routine 04/30/2024 10:50 AM SWITCHMAN SUPERVISOR Abnormal finding on GI tract imaging Crohn's disease with other complication, unspecified gastrointestinal tract location (HCC) High risk medications (not anticoagulants) long-term use Need for vaccination for pneumococcus DIFFERENTIAL AUTO Routine 04/30/2024 10:50 AM SWITCHMAN SUPERVISOR Abnormal finding on GI tract imaging Crohn's disease with other complication, unspecified gastrointestinal tract location (HCC) High risk medications (not anticoagulants) long-term use Need for vaccination for pneumococcus VITAMIN D 25 HYDROXY Routine 04/30/2024 10:50 AM SWITCHMAN SUPERVISOR Abnormal finding on GI tract imaging Crohn's disease with other complication, unspecified gastrointestinal tract location (HCC) High risk medications (not anticoagulants) long-term use Need for vaccination for pneumococcus VITAMIN B12 Routine 04/30/2024 10:50 AM SWITCHMAN SUPERVISOR Abnormal finding on GI tract imaging Crohn's disease with other complication, unspecified gastrointestinal tract location (HCC) High risk medications (not anticoagulants) long-term use Need for vaccination for pneumococcus FERRITIN Routine 04/30/2024 10:50 AM SWITCHMAN SUPERVISOR Abnormal finding on GI tract imaging Crohn's disease with other complication, unspecified gastrointestinal tract location (HCC) High risk medications (not anticoagulants) long-term use Need for vaccination for pneumococcus IRON PROFILE W/ IBC Routine 04/30/2024 10:50 AM SWITCHMAN SUPERVISOR Abnormal finding on GI tract imaging Crohn's disease with other complication, unspecified gastrointestinal tract location (HCC) High risk medications (not anticoagulants) long-term use Need for vaccination for pneumococcus ERYTHROCYTE SEDIMENTATION RATE Routine 0 04/30/2024 10:50 AM SWITCHMAN SUPERVISOR Abnormal finding on GI tract imaging Crohn's disease with other complication, unspecified gastrointestinal tract location (HCC) High risk medications (not anticoagulants) long-term use Need for vaccination for pneumococcus CRP (ACUTE PHASE) Routine 04/30/2024 10:50 AM SWITCHMAN SUPERVISOR Abnormal finding on GI tract imaging Crohn's disease with other complication, unspecified gastrointestinal tract location (HCC) High risk medications (not anticoagulants) long-term use Need for vaccination for pneumococcus COMPREHENSIVE METABOLIC PANEL Routine 10:50 AM SWITCHMAN SUPERVISOR Abnormal finding on GI tract imaging Crohn's disease with other complication, unspecified gastrointestinal tract location (HCC) High risk medications (not anticoagulants) long-term use Need for vaccination for pneumococcus CBC WITH AUTO DIFFERENTIAL Routine 04/30 10:50 AM SWITCHMAN SUPERVISOR Abnormal finding on GI tract imaging Crohn's disease with other complication, unspecified gastrointestinal tract location (HCC) High risk medications (not anticoagulants) long-term use Need for vaccination for pneumococcus HEPATITIS B SURFACE ANTIBODY (IMMUNE STATUS) Routine 04/30/2024 10:50 AM SWITCHMAN SUPERVISOR Abnormal finding on GI tract imaging Crohn's disease with other complication, unspecified gastrointestinal tract location (HCC) High risk medications (not anticoagulants) long-term use Need for vaccination for pneumococcus HEPATITIS B SURFACE ANTIGEN Routine 06/2024 10:50 AM SWITCHMAN SUPERVISOR Abnormal finding on GI tract imaging Crohn's disease with other complication, unspecified gastrointestinal tract location (HCC) High risk medications (not anticoagulants) long-term use Need for vaccination for pneumococcus HEPATITIS B CORE ANTIBODY, TOTAL Routine 04/30/2024 10:50 AM SWITCHMAN SUPERVISOR Abnormal finding on GI tract imaging Crohn's disease with other complication, unspecified gastrointestinal tract location (HCC) High risk medications (not anticoagulants) long-term use Need for vaccination for pneumococcus MRI ABDOMENT ENTEROGRAPHY W WO CONTRAST Schedule Routine, Read Routine (OP Routine) 03/29/2024 11:36 AM SWITCHMAN SUPERVISOR Chronic diarrhea Abnormal finding on GI tract imaging COLONOSCOPY 02/19/2024 1:03 PM SWITCHMAN SUPERVISOR SURGICAL PATHOLOGY Routine 02/19/2024 12:55 PM SWITCHMAN SUPERVISOR Gastroesophageal reflux disease without esophagitis Chronic diarrhea Bloating Abnormal finding on GI tract imaging EGD 02/19/2024 12:50 PM SWITCHMAN SUPERVISOR ENDO ADD ON ESOPHAGOGASTRODUODENOSCOPY BIOPSY 02/19/2024 12:47 PM SWITCHMAN SUPERVISOR Gastroesophageal reflux disease without esophagitis Chronic diarrhea Bloating Abnormal finding on GI tract imaging COLON BIOPSY 02/19/2024 12:47 PM SWITCHMAN SUPERVISOR Gastroesophageal reflux disease without esophagitis Chronic diarrhea Bloating Abnormal finding on GI tract imaging ESOPHAGOGASTRODUODENOSCOPY REMOVAL SNARE 02/19/2024 12:47 PM SWITCHMAN SUPERVISOR Gastroesophageal reflux disease without esophagitis Chronic diarrhea Bloating Abnormal finding on GI tract imaging POCT HCG, URINE Routine 02/19/2024 THINPREP TIS PAP REFLEX HPV MRNA E6/E7, CHLAMYDIA/N.GONORRHOEAE Routine 12/31/2020 12:00 AM CDT from Last 3 Months or Most Recently Relevant to Health Maintenance Results * eGFR (04/30/2024 10:50 AM SWITCHMAN SUPERVISOR) eGFR 89 >=60 mL/min/1. 73 m2 [...] reviewed 2020. Blood 04/30/2024 10:5 0 AM SWITCHMAN SUPERVISOR 04/30/2024 11:00 AM SWITCHMAN SUPERVISOR us Gerald Medina MD LAB BLOOD ORDERABLES Final Result [facility] [address] [facility]. Department [place] [address] * (ABNORMAL) Differential, auto (04/30/2024 10:50 AM SWITCHMAN SUPERVISOR) Neutrophil abs 7.8(H) 1.5 - 6.5 [...] 2017. Imm gran pct 0.5 % [facility] Comment: Interpretive Data Percent cell count reference ranges are not reported, since discordance with absolute values may lead to misinterpretation of CBC data. Current Interpretive Data was last revised on 2017. Lymphocyte pct 14.7 % [facility] Comment: Interpretive Data Percent cell count reference ranges are not reported, since discordance with absolute values may lead to misinterpretation of CBC data. Current Interpretive Data was last revised on 2017. Monocyte pct 6.3 % [facility] Comment: Interpretive Data Percent cell count reference ranges are not reported, since discordance with absolute values may lead to misinterpretation of CBC data. Current Interpretive Data was last revised on 2017. Eosinophil pct 0.4 % [facility] Comment: Interpretive Data Percent cell count reference [...] on 2017. Blood 04/30/2024 10:5 0 AM SWITCHMAN SUPERVISOR 04/30/2024 11:00 AM SWITCHMAN SUPERVISOR Gerald Medina MD LAB BLOOD ORDERABLES Final Result Performing Organization Address City/[facility] Co de Phone Number SARAH LALACH [address] [email or web address] [address] * Iron profile w/ IBC (04/30/2024 10:50 AM SWITCHMAN SUPERVISOR) Iron 104 35 - 145 mcg/dL Comment:Testing performed by : [facility], [address] [place] [address]., [address] TIBC 269 250 - 400 mcg/dL SARAH [place] Comment:Testing performed by : [facility], [address] [place] [address]., [address] Transferrin saturation 39 20 - 50 % SARAH [place] Comment:Testing performed by : [facility], [address] [place] [address]., [address] Blood 04/30/2024 10:5 0 AM SWITCHMAN SUPERVISOR 04/30/2024 3:01 PM SWITCHMAN SUPERVISOR Gerald Medina MD LAB BLOOD ORDERABLES Final Result Performing Organization Address [facility] Co de Phone Number SARAH [place] [address] [email or web address] [address] * (ABNORMAL) CBC with auto differential (04/30/2024 10:50 AM SWITCHMAN SUPERVISOR) WBC 10.1(H) 3.8 - 9.9 K/cumm Hgb 15.3 11.9 - 15.5 g/dL SARAH BJW Hct 47.5(H) 35.6 - 45.5 % SARAH LALAWCH Plt 265 150 - 400 K/cumm SARAH LALAWCH MPV 11.3 9.1 - 12.3 fL SARAH LALAWYOLANDA RBC 5.35(H) 3.90 - 5.20 M/cumm SARAH LALAWCH MCV 88.8 81.3 - 96.4 fL SARAH LALAWCH MCH 28.6 27.1 - 33.3 pg [facility] LALAW MCHC 32.2(L) 32.3 - 35.7 g/dL SARAH LALAW RDW CV 12.8 11.1 - 14.9 % SARAH LALAW RDW SD 41.6 35.7 - 48.1 fL SARAH LALAW NRBC abs 0.00 0.00 - 0.01 K/cumm SARAH BJW Blood 04/30/2024 10:5 0 AM SWITCHMAN SUPERVISOR 04/30/2024 11:00 AM SWITCHMAN SUPERVISOR Gerald Medina MD LAB BLOOD ORDERABLES Final Result Performing Organization Address [facility]/ZIP Co de Phone Number [facility] [address] [email or web address] [address] * Hepatitis B core antibody, total Blood (04/30/2024 10:50 AM SWITCHMAN SUPERVISOR) Hep B core IgG/IgM Nonreactive Nonreactive Comment:Testing performed by : [facility], [address] [place]., [address] Blood 04/30/2024 10:5 0 AM SWITCHMAN SUPERVISOR 04/30/2024 1:14 PM SWITCHMAN SUPERVISOR Gerald Medina MD LAB MICROBIOLOGY - GENERAL ORDERABLES Final Result Performing Organization Address City/[facility]/ZIP Co de Phone Number SARAH [place] [address] [email or web address] [place], [place] [id number] * (ABNORMAL) Vitamin D 25 hydroxy (04/30/2024 10:50 AM SWITCHMAN SUPERVISOR) Vitamin D 25-OH 20(L) 30 - 80 ng/mL Blood 04/30/2024 10:5 0 AM SWITCHMAN SUPERVISOR 04/30/2024 11:00 AM SWITCHMAN SUPERVISOR Gerald Medina MD LAB BLOOD ORDERABLES Final Result Performing Organization Address [facility] Co de Phone Number SARAH BJWCH [address] [facility]. [facility] [place] [address] * Hepatitis B surface antibody (immune status) Blood (04/30/2024 10:50 AM SWITCHMAN SUPERVISOR) Pathologist [facility] HBsAb (immune status) Nonreactive Comment: This result is consistent with a lack of immunity to Hepatitis B Virus when used in the setting of routine screening. Current interpretative data was last revised on 21 Testing performed by: [facility], [address] [place] [address]., [address] Blood 04/30/2024 10:5 0 AM SWITCHMAN SUPERVISOR 04/30/2024 1:14 PM SWITCHMAN SUPERVISOR Gerald Medina MD LAB MICROBIOLOGY - GENERAL ORDERABLES Final Result Performing Organization Address [facility] de Phone Number [facility] BJWCH [address] [facility]. [place] [address] * Hepatitis B Surface Antigen Blood (04/30/2024 10:50 AM SWITCHMAN SUPERVISOR) HepBsAg Nonreactive Nonreactive Comment:Testing performed by : [facility], [facility], [place]., [address] Blood 04/30/2024 10:5 0 AM SWITCHMAN SUPERVISOR 04/30/2024 5:44 PM SWITCHMAN SUPERVISOR Gerald Medina MD LAB MICROBIOLOGY - GENERAL ORDERABLES Final Result Performing Organization Address [facility] Co de Phone Number LINDAWILVER BJWCH [address] [facility]. [facility] [place] [address] * Erythrocyte sedimentation rate (04/30/2024 10:50 AM SWITCHMAN SUPERVISOR) Erythrocyte sedimentation rate 15 1 - 20 mm/hr Blood 04/30/2024 10:5 0 AM SWITCHMAN SUPERVISOR 04/30/2024 11:00 AM SWITCHMAN SUPERVISOR Gerald Medina MD LAB BLOOD ORDERABLES Final Result [facility] [address] [facility]. [facility] [place] [address] * (ABNORMAL) CRP (acute phase) (04/30/2024 10:50 AM SWITCHMAN SUPERVISOR) CRP 11.2(H) <=10.0 mg/L Blood 04/30/2024 10:5 0 AM SWITCHMAN SUPERVISOR 04/30/2024 11:00 AM SWITCHMAN SUPERVISOR Gerald Medina MD LAB BLOOD ORDERABLES Final Result Performing Organization Address [facility] Co de Phone Number [facility] [address] [facility]. [facility] [place] [address] * (ABNORMAL) Ferritin (04/30/2024 10:50 AM SWITCHMAN SUPERVISOR) Ferritin 216(H) 15 - 150 ng/mL Comment:Testing performed by : [facility], [address] [place] [address], [place]., [address] Blood 04/30/2024 10:5 0 AM SWITCHMAN SUPERVISOR 04/30/2024 3:01 PM SWITCHMAN SUPERVISOR Gerald Medina MD LAB BLOOD ORDERABLES Final Result Performing Organization Address City/[facility]/ZIP Co de Phone Number SARAH BJWCH [address] [facility]. [facility] [place] [address] * Vitamin B12 (04/30/2024 10:50 AM SWITCHMAN SUPERVISOR) Vitamin B12 461 230 - 1,250 pg/mL Comment:Testing performed by : [facility], [facility], [place]., [address] Blood 04/30/2024 10:5 0 AM SWITCHMAN SUPERVISOR 04/30/2024 3:01 PM SWITCHMAN SUPERVISOR Gerald Medina MD LAB BLOOD ORDERABLES Final Result [facility] [address] [facility]. Department [place] [address] * Comprehensive metabolic panel (04/30/2024 10:50 AM SWITCHMAN SUPERVISOR) Sodium 138 135 - 145 mmol/L [...] [facility] Blood 04/30/2024 10:5 0 AM SWITCHMAN SUPERVISOR 04/30/2024 11:00 AM SWITCHMAN SUPERVISOR us Gerald Medina MD LAB BLOOD ORDERABLES Final Result SARAH [place] [address] [facility]. Department [place] [address] * MRI Abdomen Enterography W WO Contrast (03/29/2024 11:36 AM SWITCHMAN SUPERVISOR) Anatomical Region Laterality Modality Body N/A Magnetic Resonan ce 03/31/2024 11:3 5 AM SWITCHMAN SUPERVISOR Impressions 03/31/2024 12:50 PM SWITCHMAN SUPERVISOR 1. Active inflammation involving the distal [...] Supriya Escobedo M.D. Narrative 03/31/2024 12:50 PM SWITCHMAN SUPERVISOR EXAMINATION: MAGNETIC RESONANCE IMAGING OF THE [...] Final Result * Colonoscopy (02/19/2024 1:03 PM SWITCHMAN SUPERVISOR) Anatomical Region Laterality Modality Other Narrative Procedure Note Nadia Davis MD - 02/19/2024 1:03 PM CST ENDOSCOPY LAB Patient Name: Leonel Norris Procedure Date: 02/19/2024 1:03 PM Date of : 1995 Admit Type: Outpatient Age: 28 Gender: Female Attending MD: Nadia Davis M.D. Room: [facility] ENDOSCOPY ROOM 01 Note Status: [...] The scope was passed under direct vision.The [id number] was introduced through the anusand advanced to [...] lt * Surgical pathology (02/19/2024 12:55 PM SWITCHMAN SUPERVISOR) Tissue (Duodenum, Biopsy) 02/19/2024 12:55 PM SWITCHMAN SUPERVISOR Tissue (Gastric/Stomach biopsy) 02/19/2024 12:57 PM SWITCHMAN SUPERVISOR Tissue (Polyp(s), colon/colorectal, esophageal, gastric) 02/19/2024 12:59 PM SWITCHMAN SUPERVISOR Tissue (Ileum, Biopsy) 02/19/2024 1:12 PM SWITCHMAN SUPERVISOR Tissue (Colon, Biopsy) 02/19/2024 1:16 PM SWITCHMAN SUPERVISOR Narrative PATHOLOGY W - 02/22/2024 10:06 AM SWITCHMAN SUPERVISOR EPIC results best viewed via link to PDF [facility] Anabella Carmichael [facility] [place] [address] Note to Patients: This report may contain [...] Gender: F : 1995 (Age: 28) Address: [address] [place], [place] [id number] Hospital #: [id number] Taken:02/19/2024 Received:02/19/2024 Reported: 02/22/2024 Patient Type: [facility] EP SAME Client [facility] Service: Gastro Location: Physician(s): Fredi [...] Stained with eosin). Labeled E1. Jar 0. [facility]/02/19/2024 13:52 PA(s): AMOS López By this signature, I attest that the above diagnosis is based upon my personal examination of the slides(and/or other material). Addenda/Procedures Microscopic slide review and interpretation for this case was performed at [facility], Department of Surgical Pathology, [address] [facility] [place] [place] [id number], [place] [address] CLIA # [id number] The performance characteristics of some immunohistochemical stains, fluorescence in-situ hybridization tests and immunophenotyping by flow cytometry cited in this report (if any) were determined by the Surgical Pathology and Flow Cytometry Departments at [facility] as part of an ongoing quality control associate program and in compliance with federally mandated [...] Surgical Pathology and Flow Cytometry Departments of [facility]. It has not been cleared or approved by the U. S. Food and Drug Administration. IMAGES AND SCANNED DOCUMENTS, IF INCLUDED, ONLY VIEWABLE IN PDF VERSION OF REPORT Nadia Davis MD LAB PATHOLOGY ORDERABLES Final Result PATHOLOGY [facility] [phone] * EGD (02/19/2024 12:50 PM SWITCHMAN SUPERVISOR) Anatomical Region Laterality Modality Other Narrative Procedure Note Nadia Davis MD - 02/19/2024 12:50 PM CST ENDOSCOPY LAB Patient Name: Leonel Norris Procedure Date: 02/19/2024 12:50PM Date of : 1995 Admit Type: Outpatient Age: 28 Gender: Female Attending MD: Nadia Davis M.D. Room: [facility] ENDOSCOPY ROOM 01 Note Status: [...] and oxygen saturations were monitored continuously. The [id number] was introduced through the mouth, and advanced [...] lt * POCT hCG, urine (02/19/2024) Pathologist [facility] HCG, ur, POC Negative Negative Lot Number [id number] QC Backgroud Clear Acceptable QC Control Line Acceptable Urine 02/19/2024 Historical Provider POINT OF CARE TEST ORDERA BLES Final Result * THINPREP TIS PAP REFLEX HPV mRNA E6/E7, CHLAMYDIA/N.GONORRHOEAE (12/31/2020 12:00 AM CDT) Pathologist [facility] CLINICAL INFORMATION: [employer] [facility] Comment:USES DEPO PROVERA LMP [employer] [facility] Comment:UNKNOWN Previous Pap [employer] [facility] Comment:INFORMATION NOT PROV IDED Prev. Bx [employer] [facility] Comment:INFORMATION NOT PROV IDED SOURCE: [employer] [facility] Comment:Cervix, Endocervix Pap, specimen adequacy [employer] [facility] Comment: Satisfactory for evaluation. Endocervical/transformation zone component present. HPV interp [employer] [facility] Comment:Negative for intraep ithelial lesion or malignancy. COMMENTS [employer] [facility] Comment: This Pap test has been evaluated with computer assisted technology. Plate M[facility] Comment: MVB, CT(ASCP) CT screening location: [place] [address] [address] [facility] Comment: EXPLANATORY NOTE: The Pap is a [...] C. trachomatis RNA NOT DETECTED NOT DETECTED [employer] [facility] N. gonorrhoeae RNA NOT DETECTED NOT DETECTED [employer] [facility] Comment [employer] [facility] Comment: The analytical performance characteristics of this assay, when used to test SurePath(TM) specimens have been determined by [employer]. The modifications have not been cleared or approved by the FDA. This assay has been validated pursuant to the CLIA regulations and is used for clinical purposes. For additional information, please refer to https://education.fg microtec/faq/FSB977 (This link is being provided for information/ educational purposes only.) 12/31/2020 01/03/2021 10: 17 AM SWITCHMAN SUPERVISOR Narrative [facility] - 01/06/2021 3:15 PM SWITCHMAN SUPERVISOR FASTING: UNKNOWN Leydi Medina DO LAB PATHOLOGY ORDERABLE S Final Result [place] [address] [address] [address] [facility] [employer] [address] [place] [address] from Last 3 Months or Most Recently Relevant to Health Maintenance Insurance [facility] [employer] Member Subscriber Plan / Payer (Ef fective 2020-Present) Name:Leonel Norris Relation to Subscriber:Self Name:Leonel Norris Payer ID:[id number] (NAIC) Group ID:[id number] Type:[facility] Address: [id number] [place] [address] [employer] Member Subscriber Plan / Payer (Ef fective 2020-Present) Name:Leonel Norris Relation to Subscriber:Self Name:Leonel Norris Payer ID:[id number] (NAIC) Group ID:[id number] Type:[facility] Address: [id number] [place] [address] [employer] Member Subscriber Plan / Payer ( fective 2020-Present) Name:Leonel Norris Relation to Subscriber:Self Name:Leonel Norris Payer ID:[id number] (NAIC) Group ID:[id number] Type:[facility] Address: [address] [place] [address] Advance Directives For more information, please contact: [phone] * Full Code (Latest Code Status on File) Date Activated Date Inactivated Comments 02/19/2024 11:13 AM 02/19/2024 6:24 PM Care Teams Metal Rolling Mill Operator Relationship Specialty Start Date End Date Gladis Blanco NP [address] [place] [address] PCP - General Nurse Practitioner 04/07/24
--- OUTSIDE RECORDS SUMMARY | 2024-05-01 08:55 | XMS_ITS | Referral Summary ---
Author Organization [facility] [address] [facility] Address [address] [place] [address] Care Team Providers Care Applications Systems Engineer Name Role Phone Gladis Blanco FABIEN Primary Care Provider [phone] Encounters Date Type Department Care Team Description 04/30/2024 10:45 AM PYTHON ARCHITECT Lab [facility] [address] [facility] [place] [address] Abnormal finding on GI tract imaging; Crohn's disease with other complication, unspecified gastrointestinal tract location (HCC); High risk medications (not anticoagulants) long-term use; Need for vaccination for pneumococcus 04/30/2024 9:30 AM PYTHON ARCHITECT Office Visit [facility] Gastroenterology [address] [place] [address] Medical Office [address] [place] [phone] Gerald Medina MD High risk medications (not anticoagulants) long-term use (Primary Dx); Abnormal finding on GI tract imaging; Crohn's disease with other complication, unspecified gastrointestinal tract location (HCC); Need for vaccination for pneumococcus 04/07/2024 Telephone [facility] [address] [facility] 12th [place] [address] [place] [phone] Anabella Castro RN GI Return Call 04/01/2024 Telephone [facility] G[facility] [address] [place] [address] Medical Office Building [address], [address] [place] [phone] Maxine Lott LPN 03/29/2024 9:42 AM PYTHON ARCHITECT - 03/29/2024 11:59 PM PYTHON ARCHITECT Hospital Encounter [facility] [address] [place] [address] Nadia Davis MD Chronic diarrhea; Abnormal finding on GI tract imaging Discharge Disposition: Discharge to home or self care 03/27/2024 Telephone [facility] G[facility] Medical Office Building 4, [address] [place] [address] Maxine Lott LPN Follow-up 03/04/2024 Telephone [facility] [address] [facility] 12th [place] [address] [place] [address] Maxine Lott LPN Scheduling Testing/Treatment 02/19/2024 1:30 PM PYTHON ARCHITECT - 02/19/2024 2:30 PM PYTHON ARCHITECT Surgery [facility] [address] [address] Nadia Davis MD ESOPHAGOGASTRODUODENOSCOPY REMOVAL SNARE 02/19/2024 12:44 PM PYTHON ARCHITECT Anesthesia Event [facility] [address] [address] [address] Rodriguez Milton MD 02/19/2024 10:53 AM PYTHON ARCHITECT - 02/19/2024 2:19 PM PYTHON ARCHITECT Hospital Encounter [facility] [address] [address] Nadia Davis MD Gastroesophageal reflux disease without [...] CDT Gender Identity Female 01/30/2024 9:10 PM PYTHON ARCHITECT Sexual Orientation Not on file Occupation Industry Job Start Date Job End Date Not on file Not on file Not on file Not on file Last Filed Vital Signs Vital Sign Reading Time Taken Comments Blood Pressure 108/77 04/30/2024 9:21 AM PYTHON ARCHITECT Pulse 86 04/30/2024 9:21 AM PYTHON ARCHITECT Temperature 36.7 C (98 F) 04/30/2024 9:21 AM PYTHON ARCHITECT Respiratory Rate 22 02/19/2024 2:05 PM PYTHON ARCHITECT Oxygen Saturation 100% 04/30/2024 9:21 AM PYTHON ARCHITECT Inhaled Oxygen Concentration - - Weight 78.5 kg (173 lb) 04/30/2024 9:21 AM PYTHON ARCHITECT Height 167.6 cm (5' 6 ) 04/30/2024 9:21 AM PYTHON ARCHITECT Body Mass Index 27.92 04/30/2024 9:21 AM PYTHON ARCHITECT Plan of Treatment Not on file Procedures Procedure Name Priority Date/Time Associated Diagnosis Comments EGFR Routine 04/30/2024 10:50 AM PYTHON ARCHITECT Abnormal finding on GI tract imaging Crohn's disease with other complication, unspecified gastrointestinal tract location (HCC) High risk medications (not anticoagulants) long-term use Need for vaccination for pneumococcus DIFFERENTIAL AUTO Routine 04/30/2024 10:50 AM PYTHON ARCHITECT Abnormal finding on GI tract imaging Crohn's disease with other complication, unspecified gastrointestinal tract location (HCC) High risk medications (not anticoagulants) long-term use Need for vaccination for pneumococcus VITAMIN D 25 HYDROXY Routine 04/30/2024 10:50 AM PYTHON ARCHITECT Abnormal finding on GI tract imaging Crohn's disease with other complication, unspecified gastrointestinal tract location (HCC) High risk medications (not anticoagulants) long-term use Need for vaccination for pneumococcus VITAMIN B12 Routine 04/30/2024 10:50 AM PYTHON ARCHITECT Abnormal finding on GI tract imaging Crohn's disease with other complication, unspecified gastrointestinal tract location (HCC) High risk medications (not anticoagulants) long-term use Need for vaccination for pneumococcus FERRITIN Routine 04/30/2024 10:50 AM PYTHON ARCHITECT Abnormal finding on GI tract imaging Crohn's disease with other complication, unspecified gastrointestinal tract location (HCC) High risk medications (not anticoagulants) long-term use Need for vaccination for pneumococcus IRON PROFILE W/ IBC Routine 04/30/2024 10:50 AM PYTHON ARCHITECT Abnormal finding on GI tract imaging Crohn's disease with other complication, unspecified gastrointestinal tract location (HCC) High risk medications (not anticoagulants) long-term use Need for vaccination for pneumococcus ERYTHROCYTE SEDIMENTATION RATE Routine 0 04/30/2024 10:50 AM PYTHON ARCHITECT Abnormal finding on GI tract imaging Crohn's disease with other complication, unspecified gastrointestinal tract location (HCC) High risk medications (not anticoagulants) long-term use Need for vaccination for pneumococcus CRP (ACUTE PHASE) Routine 04/30/2024 10:50 AM PYTHON ARCHITECT Abnormal finding on GI tract imaging Crohn's disease with other complication, unspecified gastrointestinal tract location (HCC) High risk medications (not anticoagulants) long-term use Need for vaccination for pneumococcus COMPREHENSIVE METABOLIC PANEL Routine 10:50 AM PYTHON ARCHITECT Abnormal finding on GI tract imaging Crohn's disease with other complication, unspecified gastrointestinal tract location (HCC) High risk medications (not anticoagulants) long-term use Need for vaccination for pneumococcus CBC WITH AUTO DIFFERENTIAL Routine 04/30 10:50 AM PYTHON ARCHITECT Abnormal finding on GI tract imaging Crohn's disease with other complication, unspecified gastrointestinal tract location (HCC) High risk medications (not anticoagulants) long-term use Need for vaccination for pneumococcus HEPATITIS B SURFACE ANTIBODY (IMMUNE STATUS) Routine 04/30/2024 10:50 AM PYTHON ARCHITECT Abnormal finding on GI tract imaging Crohn's disease with other complication, unspecified gastrointestinal tract location (HCC) High risk medications (not anticoagulants) long-term use Need for vaccination for pneumococcus HEPATITIS B SURFACE ANTIGEN Routine 06/2024 10:50 AM PYTHON ARCHITECT Abnormal finding on GI tract imaging Crohn's disease with other complication, unspecified gastrointestinal tract location (HCC) High risk medications (not anticoagulants) long-term use Need for vaccination for pneumococcus HEPATITIS B CORE ANTIBODY, TOTAL Routine 04/30/2024 10:50 AM PYTHON ARCHITECT Abnormal finding on GI tract imaging Crohn's disease with other complication, unspecified gastrointestinal tract location (HCC) High risk medications (not anticoagulants) long-term use Need for vaccination for pneumococcus MRI ABDOMENT ENTEROGRAPHY W WO CONTRAST Schedule Routine, Read Routine (OP Routine) 03/29/2024 11:36 AM PYTHON ARCHITECT Chronic diarrhea Abnormal finding on GI tract imaging COLONOSCOPY 02/19/2024 1:03 PM PYTHON ARCHITECT SURGICAL PATHOLOGY Routine 02/19/2024 12:55 PM PYTHON ARCHITECT Gastroesophageal reflux disease without esophagitis Chronic diarrhea Bloating Abnormal finding on GI tract imaging EGD 02/19/2024 12:50 PM PYTHON ARCHITECT ENDO ADD ON ESOPHAGOGASTRODUODENOSCOPY BIOPSY 02/19/2024 12:47 PM PYTHON ARCHITECT Gastroesophageal reflux disease without esophagitis Chronic diarrhea Bloating Abnormal finding on GI tract imaging COLON BIOPSY 02/19/2024 12:47 PM PYTHON ARCHITECT Gastroesophageal reflux disease without esophagitis Chronic diarrhea Bloating Abnormal finding on GI tract imaging ESOPHAGOGASTRODUODENOSCOPY REMOVAL SNARE 02/19/2024 12:47 PM PYTHON ARCHITECT Gastroesophageal reflux disease without esophagitis Chronic diarrhea Bloating Abnormal finding on GI tract imaging POCT HCG, URINE Routine 02/19/2024 THINPREP TIS PAP REFLEX HPV MRNA E6/E7, CHLAMYDIA/N.GONORRHOEAE Routine 12/31/2020 12:00 AM CDT from Last 3 Months or Most Recently Relevant to Health Maintenance Results * eGFR (04/30/2024 10:50 AM PYTHON ARCHITECT) eGFR 89 >=60 mL/min/1. 73 m2 Comment: [...] reviewed 2020. Blood 04/30/2024 10:5 0 AM PYTHON ARCHITECT 04/30/2024 11:00 AM PYTHON ARCHITECT us Gerald Medina MD LAB BLOOD ORDERABLES Final Result [facility] [address] [facility]. Department [place] [address] * (ABNORMAL) Differential, auto (04/30/2024 10:50 AM PYTHON ARCHITECT) Neutrophil abs 7.8(H) 1.5 - 6.5 K/cumm [...] on 2017. Blood 04/30/2024 10:5 0 AM PYTHON ARCHITECT 04/30/2024 11:00 AM PYTHON ARCHITECT Gerald Medina MD LAB BLOOD ORDERABLES Final Result Performing Organization Address City/State/[facility] Co de Phone Number SARAH ENGLAND [address] [facility] Department of Laboratories [place], [place] [id number] * Iron profile w/ IBC (04/30/2024 10:50 AM PYTHON ARCHITECT) Iron 104 35 - 145 mcg/dL Comment:Testing performed by : [facility], [address] [place] [address]., [address] TIBC 269 250 - 400 mcg/dL SARAH ENGLAND Comment:Testing performed by : [facility], [address] [place] [address]., [address] Transferrin saturation 39 20 - 50 % SARAH ENGLAND Comment:Testing performed by : [facility], [address] [place] [address]., [address] Blood 04/30/2024 10:5 0 AM PYTHON ARCHITECT 04/30/2024 3:01 PM PYTHON ARCHITECT Gerald Medina MD LAB BLOOD ORDERABLES Final Result Performing Organization Address City/[facility] de Phone Number SARAH VYAS [address] [place] [employer] [place], [place] [id number] * (ABNORMAL) CBC with auto differential (04/30/2024 10:50 AM PYTHON ARCHITECT) [facility] WBC 10.1(H) 3.8 - 9.9 K/cumm Hgb 15.3 11.9 - 15.5 g/dL [facility] Hct 47.5(H) 35.6 - 45.5 % C[facility]ER [facility] Plt 265 150 - 400 K/cumm [facility] MPV 11.3 9.1 - 12.3 fL [facility] RBC 5.35(H) 3.90 - 5.20 M/cumm [facility] MCV 88.8 81.3 - 96.4 fL [facility] MCH 28.6 27.1 - 33.3 pg [facility] MCHC 32.2(L) 32.3 - 35.7 g/dL [facility] RDW CV 12.8 11.1 - 14.9 % [facility] RDW SD 41.6 35.7 - 48.1 fL [facility] NRBC abs 0.00 0.00 - 0.01 K/cumm [facility] Blood 04/30/2024 10:5 0 AM PYTHON ARCHITECT 04/30/2024 11:00 AM PYTHON ARCHITECT Gerald Medina MD LAB BLOOD ORDERABLES Final Result Performing Organization Address [facility] Co de Phone Number SARAH VYASCH [address] [employer]. [place] [address] * Hepatitis B core antibody, total Blood (04/30/2024 10:50 AM PYTHON ARCHITECT) [facility] Hep B core IgG/IgM Nonreactive Nonreactive Comment:Testing performed by : [facility], [address] [facility], [place]., [address] Blood 04/30/2024 10:5 0 AM PYTHON ARCHITECT 04/30/2024 1:14 PM PYTHON ARCHITECT Gerald Medina MD LAB MICROBIOLOGY - GENERAL ORDERABLES Final Result Performing Organization Address [facility] Co de Phone Number SARAH VYASCH [address] [employer]. [place] [address] * (ABNORMAL) Vitamin D 25 hydroxy (04/30/2024 10:50 AM PYTHON ARCHITECT) Vitamin D 25-OH 20(L) 30 - 80 ng/mL Blood 04/30/2024 10:5 0 AM PYTHON ARCHITECT 04/30/2024 11:00 AM PYTHON ARCHITECT Gerald Medina MD LAB BLOOD ORDERABLES Final Result Performing Organization Address [facility] de Phone Number SARAH LALAWCH [address] [facility]. [place] [address] * Hepatitis B surface antibody (immune status) Blood (04/30/2024 10:50 AM PYTHON ARCHITECT) HBsAb (immune status) Nonreactive Comment: This result is consistent with a lack of immunity to Hepatitis B Virus when used in the setting of routine screening. Current interpretative data was last revised on 21 Testing performed by: [facility], [address] [place] [address]., [address] Blood 04/30/2024 10:5 0 AM PYTHON ARCHITECT 04/30/2024 1:14 PM PYTHON ARCHITECT Gerald Medina MD LAB MICROBIOLOGY - GENERAL ORDERABLES Final Result Performing Organization Address [facility] Co de Phone Number SARAH BJWCH [address] [employer] [address] [facility] [place] [address] * Hepatitis B Surface Antigen Blood (04/30/2024 10:50 AM PYTHON ARCHITECT) HepBsAg Nonreactive Nonreactive Comment:Testing performed by : [facility], [address] [place] [address]., [address] Blood 04/30/2024 10:5 0 AM PYTHON ARCHITECT 04/30/2024 5:44 PM PYTHON ARCHITECT Gerald Medina MD LAB MICROBIOLOGY - GENERAL ORDERABLES Final Result Performing Organization Address [facility] Co de Phone Number SARAH BJWCH [address] [place] [employer] [address] * Erythrocyte sedimentation rate (04/30/2024 10:50 AM PYTHON ARCHITECT) Erythrocyte sedimentation rate 15 1 - 20 mm/hr Blood 04/30/2024 10:5 0 AM PYTHON ARCHITECT 04/30/2024 11:00 AM PYTHON ARCHITECT Gerald Medina MD LAB BLOOD ORDERABLES Final Result Performing Organization Address [facility] de Phone Number SARAH BJWCH [address] [employer]. [place] [address] * (ABNORMAL) CRP (acute phase) (04/30/2024 10:50 AM PYTHON ARCHITECT) CRP 11.2(H) <=10.0 mg/L Blood 04/30/2024 10:5 0 AM PYTHON ARCHITECT 04/30/2024 11:00 AM PYTHON ARCHITECT Gerald Medina MD LAB BLOOD ORDERABLES Final Result Performing Organization Address [facility] de Phone Number LINDANER BJWCH [address] [facility] [place] [address] * (ABNORMAL) Ferritin (04/30/2024 10:50 AM PYTHON ARCHITECT) Ferritin 216(H) 15 - 150 ng/mL Comment:Testing performed by : [facility], [address] [place] [address]., [address] Blood 04/30/2024 10:5 0 AM PYTHON ARCHITECT 04/30/2024 3:01 PM PYTHON ARCHITECT Gerald Medina MD LAB BLOOD ORDERABLES Final Result Performing Organization Address [facility] Co de Phone Number SARAH ENGLAND [address] [facility] [place] [address] * Vitamin B12 (04/30/2024 10:50 AM PYTHON ARCHITECT) Pathologist [facility] Vitamin B12 461 230 - 1,250 pg/mL Comment:Testing performed by : [facility], [facility] [facility], [place]., [address] Blood 04/30/2024 10:5 0 AM PYTHON ARCHITECT 04/30/2024 3:01 PM PYTHON ARCHITECT Gerald Medina MD LAB BLOOD ORDERABLES Final Result Performing Organization Address [facility] de Phone Number SARAH ENGLAND [address] [facility] [place] [address] * Comprehensive metabolic panel (04/30/2024 10:50 AM PYTHON ARCHITECT) Pathologist [facility] Sodium 138 135 - 145 mmol/L Potassium, pl 4.2 3.3 - 4.9 mmol/L [facility] Chloride 100 97 - 110 mmol/L [facility] CO2 25 22 - 32 mmol/L [facility] Anion gap 13 2 - 15 mmol/L [facility] BUN 10 6 - 25 mg/dL [facility] Creatinine 0.90 0.60 - 1.10 mg/dL [facility] Glucose 101 70 - 199 mg/dL [facility] Comment: Interpretive Data Fasting glucose >/= [...] CERNER BJWCH Blood 04/30/2024 10:5 0 AM PYTHON ARCHITECT 04/30/2024 11:00 AM PYTHON ARCHITECT us Gerald Medina MD LAB BLOOD ORDERABLES Final Result [facility] [address] [facility]. [place] [employer] [address] * MRI Abdomen Enterography W WO Contrast (03/29/2024 11:36 AM PYTHON ARCHITECT) Anatomical Region Laterality Modality Body N/A Magnetic Resonan ce 03/31/2024 11:3 5 AM PYTHON ARCHITECT Impressions 03/31/2024 12:50 PM PYTHON ARCHITECT 1. Active inflammation involving the distal 4 [...] Supriya Escobedo M.D. Narrative 03/31/2024 12:50 PM PYTHON ARCHITECT EXAMINATION: MAGNETIC RESONANCE IMAGING OF THE ABDOMEN [...] Final Result * Colonoscopy (02/19/2024 1:03 PM PYTHON ARCHITECT) Anatomical Region Laterality Modality Other Narrative Procedure Note Nadia Davis MD - 02/19/2024 1:03 PM CST ENDOSCOPY LAB Patient Name: Leonel Norris Procedure Date: 02/19/2024 1:03 PM Date of : 1995 Admit Type: Outpatient Age: 28 Gender: Female Attending MD: Nadia Davis M.D. Room: [facility] ENDOSCOPY ROOM 01 Note Status: Finalized [...] The scope was passed under direct vision.The [id number] was introduced through the anusand advanced to [...] lt * Surgical pathology (02/19/2024 12:55 PM PYTHON ARCHITECT) Tissue (Duodenum, Biopsy) 02/19/2024 12:55 PM PYTHON ARCHITECT Tissue (Gastric/Stomach biopsy) 02/19/2024 12:57 PM PYTHON ARCHITECT Tissue (Polyp(s), colon/colorectal, esophageal, gastric) 02/19/2024 12:59 PM PYTHON ARCHITECT Tissue (Ileum, Biopsy) 02/19/2024 1:12 PM PYTHON ARCHITECT Tissue (Colon, Biopsy) 02/19/2024 1:16 PM PYTHON ARCHITECT Narrative PATHOLOGY W - 02/22/2024 10:06 AM PYTHON ARCHITECT EPIC results best viewed via link to PDF [facility] Anabella Carmichael [facility] [place] [address] Note to Patients: This report may contain [...] Gender: F : 1995 (Age: 28) Address: [address] [place] [id number] Hospital #: [id number] Taken:02/19/2024 Received:02/19/2024 Reported: 02/22/2024 Patient Type: [facility] SAME Client [facility] Service: Gastro Location: Physician(s): Fredi Zimmerman [...] interpretation for this case was performed at [facility], Department of Surgical Pathology, [address] [facility] [place] [id number], [place] [address] CLIA # [id number] The performance characteristics of some immunohistochemical stains, fluorescence in-situ hybridization tests and immunophenotyping by flow cytometry cited in this report (if any) were determined by the Surgical Pathology and Flow Cytometry Departments at [facility] as part of an ongoing water quality tester program and in compliance with federally mandated [...] Surgical Pathology and Flow Cytometry Departments of [facility]. It has not been cleared or approved by the U. S. Food and Drug Administration. IMAGES AND SCANNED DOCUMENTS, IF INCLUDED, ONLY VIEWABLE IN PDF VERSION OF REPORT Nadia Davis MD LAB PATHOLOGY ORDERABLES Final Result PATHOLOGY [facility] [phone] * EGD (02/19/2024 12:50 PM PYTHON ARCHITECT) Anatomical Region Laterality Modality Other Narrative Procedure Note Nadia Davis MD - 02/19/2024 12:50 PM CST ENDOSCOPY LAB Patient Name: Leonel Norris Procedure Date: 02/19/2024 12:50PM Date of : 1995 Admit Type: Outpatient Age: 28 Gender: Female Attending MD: Nadia Davis M.D. Room: [facility] ENDOSCOPY ROOM 01 Note Status: Finalized [...] and oxygen saturations were monitored continuously. The [id number] was introduced through the mouth, and advanced [...] CHLAMYDIA/N.GONORRHOEAE (12/31/2020 12:00 AM CDT) CLINICAL INFORMATION: [employer] [facility] Comment:USES DEPO PROVERA LMP [employer] [facility] Comment:UNKNOWN Previous Pap [employer] [facility] Comment:INFORMATION NOT PROV IDED Prev. Bx [facility] Comment:INFORMATION NOT PROV IDED SOURCE: [facility] Comment:Cervix, Endocervix Pap, specimen adequacy [facility] Comment: Satisfactory for evaluation. Endocervical/transformation zone component present. HPV interp [facility] Comment:Negative for intraep ithelial lesion or malignancy. COMMENTS [facility] Comment: This Pap test has been evaluated with computer assisted technology. Vulnerability Researcher [facility] Comment: MVB, CT(ASCP) CT screening location: [place] [address] [address] [place] [address] Comment [facility] Comment: EXPLANATORY NOTE: The Pap is [...] C. trachomatis RNA NOT DETECTED NOT DETECTED [employer] [facility] N. gonorrhoeae RNA NOT DETECTED NOT DETECTED [employer] [facility] Comment [employer] [place] Comment: The analytical performance characteristics of this assay, when used to test SurePath(TM) specimens have been determined by [employer]. The modifications have not been cleared or approved by the FDA. This assay has been validated pursuant to the CLIA regulations and is used for clinical purposes. For additional information, please refer to https://education.[facility]/faq/DGN371 (This link is being provided for information/ educational purposes only.) 12/31/2020 01/03/2021 10: 17 AM PYTHON ARCHITECT Narrative [facility] - 01/06/2021 3:15 PM PYTHON ARCHITECT FASTING: UNKNOWN us Leydi Medina DO LAB PATHOLOGY ORDERABLE S Final Result [facility] [address] [address] [id number] [employer] [address] [place] [address] from Last 3 Months or Most Recently Relevant to Health Maintenance Insurance [id number] [place] [address] [address] [place] [address] FED[employer]AL FEDERAL Advance Directives For more information, please contact: [phone] * Full Code (Latest Code Status on File) Date Activated Date Inactivated Comments 02/19/2024 11:13 AM 02/19/2024 6:24 PM Care Teams Applications Systems Engineer Relationship Specialty Start Date End Date Gladis Blanco NP [address] [place] [address] PCP - General Nurse Practitioner 04/07/24
--- OUTSIDE RECORDS SUMMARY | 2024-05-01 08:55 | XMS_ITS | Clinical Summary ---
Author Organization [facility] Address [address] [place] [address] Care Team Providers Care Styrene Dehydration Reactor Operator Name Role Phone Darinel Knott MD Primary Care Provider [phone] Source Comments [facility],non-owned Affiliates and Associated Physician Practices is amultiple site organization consisting of ambulatory clinics and hospital sitesin [place], [place], [place] and [place]. This disclosure is being madepursuant to the Care Everywhere program and may not contain all informatio navailable regarding this patient. Last updated 17.[facility] Allergies Active Allergy Reactions Criticality Noted Date [...] Comments Blood Pressure 130/88 01/11/2023 10:20 AM INSURANCE ADVISOR Pulse 94 01/11/2023 10:20 AM INSURANCE ADVISOR Temperature 36.2 C (97.1 F) 01/11/2023 10:20 AM INSURANCE ADVISOR Respiratory Rate - - Oxygen Saturation 100% 01/11/2023 10:20 AM INSURANCE ADVISOR Inhaled Oxygen Concentration - - Weight 96.6 kg (213 lb) 01/11/2023 10:20 AM INSURANCE ADVISOR Height 167.6 cm (5' 6 ) 01/11/2023 10:20 AM INSURANCE ADVISOR Body Mass Index 34.38 01/11/2023 10:20 AM INSURANCE ADVISOR Plan of Treatment Health Maintenance Due Date Last Done Comments PAP SMEAR 1994 HIV SCREENING 2009 HEPATITIS C SCREENING 09/12/2012 DTAP/TDAP/TD VACCINES (1 - Tdap) 2013 HEPATITIS B VACCINE (1 of 3 - 19+ 3-dose series) 2013 COVID-19 VACCINE ( - 2023-2 5 season) 2023 INFLUENZA VACCINE [...] age to complete this topic Care Teams Styrene Dehydration Reactor Operator Relationship Specialty Start Date End Date Darinel Knott MD [address] [place] [phone] PCP - General Family Medicine 01/11/23
--- OUTSIDE RECORDS SUMMARY | 2024-05-01 08:55 | XMS_ITS | Clinical Summary ---
Author Organization [facility] Address [facility] [place] [address] Care Team Providers Care Bulb Assembler Name Role Phone Darinel Knott MD Primary Care Provider [phone] Allergies Active Allergy Reactions Criticality Noted Date [...] Comments Blood Pressure 116/74 03/28/2023 3:14 PM ROTARY MACHINE OPERATOR Pulse 88 03/28/2023 3:14 PM ROTARY MACHINE OPERATOR Temperature 36.5 C (97.7 F) 03/28/2023 3:14 PM ROTARY MACHINE OPERATOR Respiratory Rate 18 03/28/2023 3:14 PM ROTARY MACHINE OPERATOR Oxygen Saturation 100% 03/28/2023 3:14 PM ROTARY MACHINE OPERATOR Inhaled Oxygen Concentration - - Weight 97.5 kg (215 lb) 03/28/2023 3:14 PM ROTARY MACHINE OPERATOR Height 167.6 cm (5' 6 ) 03/28/2023 3:14 PM ROTARY MACHINE OPERATOR Body Mass Index 34.7 03/28/2023 3:14 PM ROTARY MACHINE OPERATOR Plan of Treatment Health Maintenance Due Date Last Done Comments Cervical Cancer Screening Pap Smear (Age 21 to 29) Every 3 Years 1994 Cervical Cancer Screening 1994 Annual Physical 1997 HPV Vaccines (2 - 2-dose series) 05/27/2008 11/27/2007 Hepatitis C 2012 COVID-19 Vaccine ( - 2023- season) 2023 Influenza Adult (#1) 2023 PHQ-2 (Physician [place]) 02/27/2024 03/28/2023 PHQ-2 (Physician [place]) 03/28/2024 03/28/2023 DTaP, Tdap and Td Vaccines [...] Indicated MRSA 10/05/2016 10/05/2016 Insurance Care Teams Bulb Assembler Relationship Specialty Start Date End Date Darinel Knott MD [address] [place] [address] PCP - General 12/25/22
--- OUTSIDE RECORDS SUMMARY | 2024-05-01 08:55 | XMS_ITS | Encounter Summary ---
Author Organization [facility] Address [address] [place] [address] Care Team Providers Care Coat Tailor Name Role Phone Gladis Blanco NP Primary Care Provider [phone] Encounter Details Date Type Department Care Team (Late st Contact Info) Description 04/30/2024 10:45 AM LEAD OXIDE MILL TENDER Lab [facility] [address] [facility] [place] [address] Abnormal finding on GI tract imaging; Crohn's [...] CDT Gender Identity Female 01/30/2024 9:10 PM LEAD OXIDE MILL TENDER Sexual Orientation Not on file Occupation Industry [...] for vaccination for pneumococcus 04/30/2024 10:50 AM LEAD OXIDE MILL TENDER documented as of this encounter Procedures Procedure Name Priority Date/Time Associated Diagnosis Comments EGFR Routine 04/30/2024 10:50 AM LEAD OXIDE MILL TENDER Abnormal finding on GI tract imaging Crohn's disease with other complication, unspecified gastrointestinal tract location (HCC) High risk medications (not anticoagulants) long-term use Need for vaccination for pneumococcus DIFFERENTIAL AUTO Routine 04/30/2024 10: 50 AM LEAD OXIDE MILL TENDER Abnormal finding on GI tract imaging Crohn's disease with other complication, unspecified gastrointestinal tract location (HCC) High risk medications (not anticoagulants) long-term use Need for vaccination for pneumococcus IRON PROFILE W/ IBC Routine 04/30/2024 1 0:50 AM LEAD OXIDE MILL TENDER Abnormal finding on GI tract imaging Crohn's disease with other complication, unspecified gastrointestinal tract location (HCC) High risk medications (not anticoagulants) long-term use Need for vaccination for pneumococcus CBC WITH AUTO DIFFERENTIAL Routine 04/30/2024 10:50 AM LEAD OXIDE MILL TENDER Abnormal finding on GI tract imaging Crohn's disease with other complication, unspecified gastrointestinal tract location (HCC) High risk medications (not anticoagulants) long-term use Need for vaccination for pneumococcus HEPATITIS B CORE ANTIBODY, TOTAL Routine 04/30/2024 10:50 AM LEAD OXIDE MILL TENDER Abnormal finding on GI tract imaging Crohn's disease with other complication, unspecified gastrointestinal tract location (HCC) High risk medications (not anticoagulants) long-term use Need for vaccination for pneumococcus VITAMIN D 25 HYDROXY Routine 04/30/2024 10:50 AM LEAD OXIDE MILL TENDER Abnormal finding on GI tract imaging Crohn's disease with other complication, unspecified gastrointestinal tract location (HCC) High risk medications (not anticoagulants) long-term use Need for vaccination for pneumococcus HEPATITIS B SURFACE ANTIBODY (IMMUNE STATUS) Routine 04/30/2024 10:50 AM LEAD OXIDE MILL TENDER Abnormal finding on GI tract imaging Crohn's disease with other complication, unspecified gastrointestinal tract location (HCC) High risk medications (not anticoagulants) long-term use Need for vaccination for pneumococcus HEPATITIS B SURFACE ANTIGEN Routine 04/30/2024 10:50 AM LEAD OXIDE MILL TENDER Abnormal finding on GI tract imaging Crohn's disease with other complication, unspecified gastrointestinal tract location (HCC) High risk medications (not anticoagulants) long-term use Need for vaccination for pneumococcus ERYTHROCYTE SEDIMENTATION RATE Routine 04/30/2024 10:50 AM LEAD OXIDE MILL TENDER Abnormal finding on GI tract imaging Crohn's disease with other complication, unspecified gastrointestinal tract location (HCC) High risk medications (not anticoagulants) long-term use Need for vaccination for pneumococcus CRP (ACUTE PHASE) Routine 04/30/2024 10: 50 AM LEAD OXIDE MILL TENDER Abnormal finding on GI tract imaging Crohn's disease with other complication, unspecified gastrointestinal tract location (HCC) High risk medications (not anticoagulants) long-term use Need for vaccination for pneumococcus FERRITIN Routine 04/30/2024 10:50 AM LEAD OXIDE MILL TENDER Abnormal finding on GI tract imaging Crohn's disease with other complication, unspecified gastrointestinal tract location (HCC) High risk medications (not anticoagulants) long-term use Need for vaccination for pneumococcus VITAMIN B12 Routine 04/30/2024 10:50 AM LEAD OXIDE MILL TENDER Abnormal finding on GI tract imaging Crohn's disease with other complication, unspecified gastrointestinal tract location (HCC) High risk medications (not anticoagulants) long-term use Need for vaccination for pneumococcus COMPREHENSIVE METABOLIC PANEL Routine 04/30/2024 10:50 AM LEAD OXIDE MILL TENDER Abnormal finding on GI tract imaging Crohn's disease with other complication, unspecified gastrointestinal tract location (HCC) High risk medications (not anticoagulants) long-term use Need for vaccination for pneumococcus documented in this encounter Results * eGFR (04/30/2024 10:50 AM LEAD OXIDE MILL TENDER) eGFR 89 >=60 mL/min/1. 73 m2 Comment: [...] reviewed 2020. Blood 04/30/2024 10:5 0 AM LEAD OXIDE MILL TENDER 04/30/2024 11:00 AM LEAD OXIDE MILL TENDER us Gerald Medina MD LAB BLOOD ORDERABLES Final Result [facility] [address] [facility]. [place] [address] * (ABNORMAL) Differential, auto (04/30/2024 10:50 AM LEAD OXIDE MILL TENDER) Neutrophil abs 7.8(H) 1.5 - 6.5 K/cumm [...] on 2017. Blood 04/30/2024 10:5 0 AM LEAD OXIDE MILL TENDER 04/30/2024 11:00 AM LEAD OXIDE MILL TENDER Gerald Medina MD LAB BLOOD ORDERABLES Final Result Performing Organization Address City/State/[facility] Co vt Phone Number SARAH LALAWCH [address] [facility]. [place] [address] * Hepatitis B surface antibody (immune status) Blood (04/30/2024 10:50 AM LEAD OXIDE MILL TENDER) HBsAb (immune status) Nonreactive Comment: This result is consistent with a lack of immunity to Hepatitis B Virus when used in the setting of routine screening. Current interpretative data was last revised on 21 Testing performed by: [facility], [address] [place]., [address] Blood 04/30/2024 10:5 0 AM LEAD OXIDE MILL TENDER 04/30/2024 1:14 PM LEAD OXIDE MILL TENDER Gerald Medina MD LAB MICROBIOLOGY - GENERAL ORDERABLES Final Result Performing Organization Address [facility] de Phone Number SARAH BJWCH [address] [employer] [facility] [place] [address] * Hepatitis B Surface Antigen Blood (04/30/2024 10:50 AM LEAD OXIDE MILL TENDER) Pathologist [facility] HepBsAg Nonreactive Nonreactive Comment:Testing performed by : [facility], [address] [place] [address]., [address] Blood 04/30/2024 10:5 0 AM LEAD OXIDE MILL TENDER 04/30/2024 5:44 PM LEAD OXIDE MILL TENDER Gerald Medina MD LAB MICROBIOLOGY - GENERAL ORDERABLES Final Result Performing Organization Address [facility] de Phone Number SARAH BJWCH [address] [facility] [address] * (ABNORMAL) Vitamin D 25 hydroxy (04/30/2024 10:50 AM LEAD OXIDE MILL TENDER) [facility] Vitamin D 25-OH 20(L) 30 - 80 ng/mL Blood 04/30/2024 10:5 0 AM LEAD OXIDE MILL TENDER 04/30/2024 11:00 AM LEAD OXIDE MILL TENDER Gerald Medina MD LAB BLOOD ORDERABLES Final Result Performing Organization Address [facility] de Phone Number SARAH BJWCH [address] [facility] [place] [address] * Vitamin B12 (04/30/2024 10:50 AM LEAD OXIDE MILL TENDER) [facility] Vitamin B12 461 230 - 1,250 pg/mL Comment:Testing performed by : [facility], [address] [place] [address], [place]., [address] Blood 04/30/2024 10:5 0 AM LEAD OXIDE MILL TENDER 04/30/2024 3:01 PM LEAD OXIDE MILL TENDER Gerald Medina MD LAB BLOOD ORDERABLES Final Result Performing Organization Address [facility] Co de Phone Number SARAH LALAWCH [address] [facility] [place] [address] * (ABNORMAL) Ferritin (04/30/2024 10:50 AM LEAD OXIDE MILL TENDER) Ferritin 216(H) 15 - 150 ng/mL Comment:Testing performed by : [facility], [address] [place] [address]., [address] Blood 04/30/2024 10:5 0 AM LEAD OXIDE MILL TENDER 04/30/2024 3:01 PM LEAD OXIDE MILL TENDER Gerald Meidna MD LAB BLOOD ORDERABLES Final Result Performing Organization Address [facility] de Phone Number SARAH LALACH [address] [facility] [place] [address] * Iron profile w/ IBC (04/30/2024 10:50 AM LEAD OXIDE MILL TENDER) Pathologist [facility] Iron 104 35 - 145 mcg/dL Comment:Testing performed by : [facility], [address] [place] [address]., [address] TIBC 269 250 - 400 mcg/dL SARAH ENGLAND Comment:Testing performed by : [facility], [address] [place] [address]., [address] Transferrin saturation 39 20 - 50 % SARAH BJWYOLANDA Comment:Testing performed by : [facility], [address] [place] [address]., [address] Blood 04/30/2024 10:5 0 AM LEAD OXIDE MILL TENDER 04/30/2024 3:01 PM LEAD OXIDE MILL TENDER Gerald Medina MD LAB BLOOD ORDERABLES Final Result Performing Organization Address City/[facility] Co de Phone Number SARAH LALAWCH [address] [facility] [address] * Erythrocyte sedimentation rate (04/30/2024 10:50 AM LEAD OXIDE MILL TENDER) Pathologist [facility] Erythrocyte sedimentation rate 15 1 - 20 mm/hr Blood 04/30/2024 10:5 0 AM LEAD OXIDE MILL TENDER 04/30/2024 11:00 AM LEAD OXIDE MILL TENDER Gerald Medina MD LAB BLOOD ORDERABLES Final Result Performing Organization Address [facility] Co de Phone Number SARAH LALACH [address] [facility] [place] [address] * (ABNORMAL) CRP (acute phase) (04/30/2024 10:50 AM LEAD OXIDE MILL TENDER) [facility] CRP 11.2(H) <=10.0 mg/L Blood 04/30/2024 10:5 0 AM LEAD OXIDE MILL TENDER 04/30/2024 11:00 AM LEAD OXIDE MILL TENDER Gerald Medina MD LAB BLOOD ORDERABLES Final Result Performing Organization Address [facility] Co de Phone Number SARAH LALACH [address] [facility] [address] * Comprehensive metabolic panel (04/30/2024 10:50 AM LEAD OXIDE MILL TENDER) Pathologist [facility] Sodium 138 135 - 145 mmol/L Potassium, pl 4.2 3.3 - 4.9 mmol/L [facility] Chloride 100 97 - 110 mmol/L [facility] CO2 25 22 - 32 mmol/L [facility] Anion gap 13 2 - 15 mmol/L [facility] BUN 10 6 - 25 mg/dL [facility] Creatinine 0.90 0.60 - 1.10 mg/dL [facility] Glucose 101 70 - 199 mg/dL [facility] Comment: Interpretive Data Fasting glucose >/= [...] CERNER B[facility]WCH Blood 04/30/2024 10:5 0 AM LEAD OXIDE MILL TENDER 04/30/2024 11:00 AM LEAD OXIDE MILL TENDER us Gerald Medina MD LAB BLOOD ORDERABLES Final Result [facility] [address] [facility]. [place] [address] * (ABNORMAL) CBC with auto differential (04/30/2024 10:50 AM LEAD OXIDE MILL TENDER) WBC 10.1(H) 3.8 - 9.9 K/cumm Hgb 15.3 11.9 - 15.5 g/dL [facility] Hct 47.5(H) 35.6 - 45.5 % [facility] Plt 265 150 - 400 K/cumm [facility] MPV 11.3 9.1 - 12.3 fL [facility] RBC 5.35(H) 3.90 - 5.20 M/cumm [facility] MCV 88.8 81.3 - 96.4 fL [facility] MCH 28.6 27.1 - 33.3 pg [facility] MCHC 32.2(L) 32.3 - 35.7 g/dL [facility] RDW CV 12.8 11.1 - 14.9 % [facility] RDW SD 41.6 35.7 - 48.1 fL [facility] NRBC abs 0.00 0.00 - 0.01 K/cumm [facility] Blood 04/30/2024 10:5 0 AM LEAD OXIDE MILL TENDER 04/30/2024 11:00 AM LEAD OXIDE MILL TENDER Gerald Medina MD LAB BLOOD ORDERABLES Final Result Performing Organization Address City/[facility]/ZIP Co de Phone Number SARAH [facility] [address] [facility]. Department of [employer] [place], [place] [id number] * Hepatitis B core antibody, total Blood (04/30/2024 10:50 AM LEAD OXIDE MILL TENDER) Hep B core IgG/IgM Nonreactive Nonreactive Comment:Testing performed by : [facility], [address] [place]., [address] Blood 04/30/2024 10:5 0 AM LEAD OXIDE MILL TENDER 04/30/2024 1:14 PM LEAD OXIDE MILL TENDER Gerald Medina MD LAB MICROBIOLOGY - GENERAL ORDERABLES Final Result Performing Organization Address [facility] Co de Phone Number SARAH [facility] [address] [facility] [place] [address] documented in this encounter Visit Diagnoses Diagnosis Abnormal finding on GI tract imaging Crohn's disease with other complication, unspecified gastrointestinal tract location (HCC) High risk medications (not anticoagulants) long-term use Encounter for long-term (current) use of other medications Need for vaccination for pneumococcus documented in this encounter Care Teams Coat Tailor Relationship Specialty Start Date End Date Gladis Blanco NP [address] [place] [address] PCP - General Nurse Practitioner 04/07/24 documented as of this encounter
--- OUTSIDE RECORDS SUMMARY | 2024-05-01 08:55 | XMS_ITS | Encounter Summary ---
Author Organization [facility] Address [facility] [place] [address] Care Team Providers Care Maintenance Analyst Name Role Phone Darlene Long MD Primary Care Provider Unavailable None, Provider Primary Care Provider Unavaila Darinel Baugh MD Primary Care Provider [phone] Encounter Details Date Type Department Care Team (Late st Contact Info) Description 10/18/2015 Abstract [facility] Clinics Conversion Julio Morton MD [address] [address] Social History Tobacco Use Types [...] CDT Oct 18, 2015 Leonel Estrada [address] [place] [address] Dear Leonel Estrada, Thank you for choosing [facility] for your health care needs. We appreciate the opportunity to help you maintain your well being. You recently had a TB quantiferon gold test drawn and a varicella titer. Your TB results came back normal (negative) and your varicella results came back showing that you are immune . If you have any questions please feel free to call the office at [phone], Option #3or Option #1 to make an appointment to discuss these results. 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
--- OUTSIDE RECORDS SUMMARY | 2024-05-01 08:55 | XMS_ITS | Continuity of Care Document ---
Author Organization [facility] Address [address] [place] [address] Phone Care Team Providers Care Calibration Engineer Name Role Phone Zion Alex MD Unavailable [...] Diagnoses Date Provider Providers Copied on Encounter [facility], [address], [place], [place], [id number] , tel: [phone] [facility] No Information [address]. [employer] [place], [address], [place]. tel: [phone] [facility], [address], [place], [place], [address] , tel: [phone] [facility] Abdominal pain (chief complaint) GI bleeding (chief complaint) Diarrhea (chief complaint) Abdominal pain, epigastricBlood in stoolIrritable bowel syndrome with diarrhea 0 [address] [place] [employer], [address], [place]. tel:[phone] Referring Provider: Zion Alex, [address], [place], [address]. tel:[phone] Family History Family Member Type Diagnosis Age At Onset No Information Payers Payer name Insurance type Covered constitution party ID Dawit arvizu(s) CANDELARIO O CI [id number] Social History Type Description Quantity Date Captured [...] Additional Infor wale ansol HC supp one MS BIDIf not improving may need colonoscopy Related to Blood in stool Upper endoscopy sche duled, risk, benefits, alternatives explained.continue Zegridavoid NSAIDSneed to get labs from [facility] for review Related to Abdominal pain, epigastric check CBC, CMP, lipa seimodium PRNmay need colonoscopy, trial of Viberzi ?patient will bring labs from [facility] for review ( had kidney stones probably unrelated )FODMAP diet papers givenSB Bx at time of EGD Related to Irritable bowel syndrome with diarrhea Handout Assessments Type Assessment Date No Information Patient Care Teams Name Effective Dates (start - stop) Status Members No Information
--- OUTSIDE RECORDS SUMMARY | 2024-05-01 08:55 | XMS_ITS | Referral Summary ---
Author Organization [facility] Address [address] [facility] [place] [address] Care Team Providers Care Supervisor Instant Potato Processing Name Role Phone Darinel Knott MD Primary Care Provider [phone] Source Comments [facility],non-owned Affiliates and Associated Physician Practices is amultiple site organization consisting of ambulatory clinics and hospital sitesin [place], [place] and [place]. This disclosure is being madepursuant to the Care Everywhere program and may not contain all information available regarding this patient. Last updated 17.[facility] Allergies Active Allergy Reactions Criticality Noted Date [...] Comments Blood Pressure 130/88 01/11/2023 10:20 AM FEEDER ASSOCIATE Pulse 94 01/11/2023 10:20 AM FEEDER ASSOCIATE Temperature 36.2 C (97.1 F) 01/11/2023 10:20 AM FEEDER ASSOCIATE Respiratory Rate - - Oxygen Saturation 100% 01/11/2023 10:20 AM FEEDER ASSOCIATE Inhaled Oxygen Concentration - - Weight 96.6 kg (213 lb) 01/11/2023 10:20 AM FEEDER ASSOCIATE Height 167.6 cm (5' 6 ) 01/11/2023 10:20 AM FEEDER ASSOCIATE Body Mass Index 34.38 01/11/2023 10:20 AM FEEDER ASSOCIATE Plan of Treatment Not on file Care Teams Supervisor Instant Potato Processing Relationship Specialty Start Date End Date Darinel Knott MD [address] [place] [id number] PCP - General Family Medicine 01/11/23
--- OUTSIDE RECORDS SUMMARY | 2024-05-01 08:55 | XMS_ITS | Encounter Summary ---
Author Organization [facility] Address [address] [place] [address] Phone Care Team Providers Care Cruise Counselor Name Role Phone CaryGladis allen FABIEN Primary Care Provider [phone] Reason for Referral * Consultation (Routine) - Pending Review Specialty Diagnoses / Procedures Referred By Contact Referred To Contact Diabetes and Nutrition Services Diagnoses Crohn's disease with other complication, unspecified gastrointestinal tract location (HCC) Gerald Medina MD [address] [place] [address] Phone: tel:[phone] fax:[phone] [facility]enter[facility] [address] 12th [place] [address] [place] [address] Phone: tel: fax: Referral ID Status Reason Start Date Expiration Date Visits Requested Visits Authorized [id number] Pending Review Specialty Services Required 04/30/2024 05/30/2025 10 10 Question Answer Please select the performing region: [facility] (All Locations) [167] Which [facility] division are you referring from? Gastroenterology (GI) Please select the performing department: [facility] 12B [[id number]] [id number] Initial / Annual Follow-up MNT # of visits: 10 Comments Please schedule with Radha Wayne. Thanks! R PASTRY Reason for Visit * Consultation (Routine) - Authorized Specialty Diagnoses / Procedures Referred By Nj jerome Referred To Contact Gastroenterology Diagnoses Abnormal finding on GI tract imaging Crohn's disease with other complication, unspecified gastrointestinal tract location (HCC) Nadia Davis MD [address] [place] [address] Phone: tel: fax: [facility] (All Locations) Referral ID Status Reason Start Date Expiration Date Visits Requested Visits Authorized [id number] Authorized Specialty Services Required 04/01/2024 05/01/2025 99 99 Encounter Details Date Type Department Care Team (Latest Contact Info) Description 04/30/2024 9:30 AM BAKER PASTRY Office Visit [facility] G[facility]enterology [address] [place] [address] Medical Office Building [address] [place] [address] Gerald Medina MD [address] [place] [address] High risk medications (not anticoagulants) [...] CDT Gender Identity Female 01/30/2024 9:10 PM BAKER PASTRY Sexual Orientation Not on file Occupation Industry Job Start Date Job End Date Not on file Not on file Not on file Not on file documented as of this encounter Last Filed Vital Signs Vital Sign Reading Time Taken Comments Blood Pressure 108/77 04/30/2024 9:21 AM BAKER PASTRY Pulse 86 04/30/2024 9:21 AM BAKER PASTRY Temperature 36.7 C (98 F) 04/30/2024 9:21 AM BAKER PASTRY Respiratory Rate - - Oxygen Saturation 100% 04/30/2024 9:21 AM BAKER PASTRY Inhaled Oxygen Concentration - - Weight 78.5 kg (173 lb) 04/30/2024 9:21 AM BAKER PASTRY Height 167.6 cm (5' 6 ) 04/30/2024 9:21 AM BAKER PASTRY Body Mass Index 27.92 04/30/2024 9:21 AM BAKER PASTRY documented in this encounter Plan of Treatment Pending Results Name Type Priority Associated Diagnoses Date /Time T-SPOT.TB Blood Microbiology Routine Abnormal finding on GI tract imaging Crohn's disease with other complication, unspecified gastrointestinal tract location (HCC) High risk medications (not anticoagulants) long-term use Need for vaccination for pneumococcus 04/30/2024 10:50 AM BAKER PASTRY Scheduled Orders Name Type Priority Associated Diagnoses [...] core antibody, total Blood (04/30/2024 10:50 AM BAKER PASTRY) Hep B core IgG/IgM Nonreactive Nonreactive Comment:Testing performed by : [facility], [address] [facility], [place]., [address] Blood 04/30/2024 10:5 0 AM BAKER PASTRY 04/30/2024 1:14 PM BAKER PASTRY Gerald Medina MD LAB MICROBIOLOGY - GENERAL ORDERABLES Final Result Performing Organization Address City/State/[facility] Co de Phone Number SARAH BJW[facility] [address] [address] [employer] [facility] [facility] [place] [address] * Hepatitis B surface antibody (immune status) Blood (04/30/2024 10:50 AM BAKER PASTRY) HBsAb (immune status) Nonreactive Comment: This result is consistent with a lack of immunity to Hepatitis B Virus when used in the setting of routine screening. Current interpretative data was last revised on 21 Testing performed by: [facility], [address] [place]., [address] Blood 04/30/2024 10:5 0 AM BAKER PASTRY 04/30/2024 1:14 PM BAKER PASTRY Gerald Medina MD LAB MICROBIOLOGY - GENERAL ORDERABLES Final Result Performing Organization Address [facility] Co de Phone Number SARAH BJW[facility] [address] [employer] [employer] [place] [address] * Hepatitis B Surface Antigen Blood (04/30/2024 10:50 AM BAKER PASTRY) Pathologist [facility] HepBsAg Nonreactive Nonreactive Comment:Testing performed by : [facility], [address] [place] [address]., [address] Blood 04/30/2024 10:5 0 AM BAKER PASTRY 04/30/2024 5:44 PM BAKER PASTRY Gerald Medina MD LAB MICROBIOLOGY - GENERAL ORDERABLES Final Result Performing Organization Address [facility] Co de Phone Number SARAH BJW[facility] [address] [facility] [employer] [facility] [employer] [place] [address] * (ABNORMAL) Vitamin D 25 hydroxy (04/30/2024 10:50 AM BAKER PASTRY) Vitamin D 25-OH 20(L) 30 - 80 ng/mL Blood 04/30/2024 10:5 0 AM BAKER PASTRY 04/30/2024 11:00 AM BAKER PASTRY Gerald Medina MD LAB BLOOD ORDERABLES Final Result Performing Organization Address [facility] Co de Phone Number SARAH [facility] [address] [facility]. [facility] [place] [address] * Vitamin B12 (04/30/2024 10:50 AM BAKER PASTRY) Vitamin B12 461 230 - 1,250 pg/mL Comment:Testing performed by : [facility], [address] [place] [address]., [address] Blood 04/30/2024 10:5 0 AM BAKER PASTRY 04/30/2024 3:01 PM BAKER PASTRY Gerald Medina MD LAB BLOOD ORDERABLES Final Result Performing Organization Address [facility] de Phone Number SARAH [facility] [address] [facility]. [facility] [place] [address] * (ABNORMAL) Ferritin (04/30/2024 10:50 AM BAKER PASTRY) Ferritin 216(H) 15 - 150 ng/mL Comment:Testing performed by : [facility], [address] [place] [address]., [id number] Blood 04/30/2024 10:5 0 AM BAKER PASTRY 04/30/2024 3:01 PM BAKER PASTRY Gerald Medina MD LAB BLOOD ORDERABLES Final Result Performing Organization Address [facility] Co de Phone Number SARAH [facility] [address] [facility]. [facility] [place] [address] * Iron profile w/ IBC (04/30/2024 10:50 AM BAKER PASTRY) Iron 104 35 - 145 mcg/dL Comment:Testing performed by : [facility], [address] [place] [address]., [address] TIBC 269 250 - 400 mcg/dL SARAH ENGLAND Comment:Testing performed by : [facility], [facility] [facility], [place]., [address] Transferrin saturation 39 20 - 50 % SARAH ENGLAND Comment:Testing performed by : [facility], [address] [place] [address]., [address] Blood 04/30/2024 10:5 0 AM BAKER PASTRY 04/30/2024 3:01 PM BAKER PASTRY Gerald Medina MD LAB BLOOD ORDERABLES Final Result Performing Organization Address [facility] Co de Phone Number [facility] [address] [facility] [address] [place], [place] [id number] * Erythrocyte sedimentation rate (04/30/2024 10:50 AM BAKER PASTRY) Pathologist [facility] Erythrocyte sedimentation rate 15 1 - 20 mm/hr Blood 04/30/2024 10:5 0 AM BAKER PASTRY 04/30/2024 11:00 AM BAKER PASTRY Gerald Medina MD LAB BLOOD ORDERABLES Final Result Performing Organization Address [facility] de Phone Number [facility] [address] [facility] [place] [address] * (ABNORMAL) CRP (acute phase) (04/30/2024 10:50 AM BAKER PASTRY) Pathologist [facility] CRP 11.2(H) <=10.0 mg/L Blood 04/30/2024 10:5 0 AM BAKER PASTRY 04/30/2024 11:00 AM BAKER PASTRY Gerald Medina MD LAB BLOOD ORDERABLES Final Result Performing Organization Address [facility] de Phone Number [facility] [address] [facility] [place] [address] * Comprehensive metabolic panel (04/30/2024 10:50 AM BAKER PASTRY) Sodium 138 135 - 145 mmol/L Potassium, [...] CERNER BJWCH Blood 04/30/2024 10:5 0 AM BAKER PASTRY 04/30/2024 11:00 AM BAKER PASTRY us Gerald Medina MD LAB BLOOD ORDERABLES Final Result SARAH VYASCH [address] [facility]. Department [place] [address] * (ABNORMAL) CBC with auto differential (04/30/2024 10:50 AM BAKER PASTRY) WBC 10.1(H) 3.8 - 9.9 K/cumm Hgb 15.3 11.9 - 15.5 g/dL SARAH LALAYOLANDA Hct 47.5(H) 35.6 - 45.5 % SARAH LALAYOLANDA Plt 265 150 - 400 K/cumm SARAH LALAYOLANDA MPV 11.3 9.1 - 12.3 fL SARAH LALAYOLANDA RBC 5.35(H) 3.90 - 5.20 M/cumm ASRAH LALAYOLANDA MCV 88.8 81.3 - 96.4 fL [facility]CH 28.6 27.1 - 33.3 pg [facility] MCHC 32.2(L) 32.3 - 35.7 g/dL [facility] RDW CV 12.8 11.1 - 14.9 % [facility] RDW SD 41.6 35.7 - 48.1 fL [facility] NRBC abs 0.00 0.00 - 0.01 K/cumm [facility] Blood 04/30/2024 10:5 0 AM BAKER PASTRY 04/30/2024 11:00 AM BAKER PASTRY us Gerald Medina MD LAB BLOOD ORDERABLES Final Result SARAH VYAS [address] [facility]. Department [place] [address] documented in this encounter Visit Diagnoses Diagnosis [...] 25 documented in this encounter Care Teams Cruise Counselor Relationship Specialty Start Date End Date Gladis Blanco NP [address] [place] [address] PCP - General Nurse Practitioner 04/07/24 documented as of this encounter
--- OUTSIDE RECORDS SUMMARY | 2024-05-01 08:55 | XMS_ITS | Clinical Summary ---
Author Organization [facility] Address [address] [place] [address] Phone Care Team Providers Care Delivery Tech Name Role Phone Francis Gladis Ivy ESTRELLA Primary Care Provider [phone] Allergies Active Allergy Reactions Criticality Noted Date Comments Sulfa Antibiotics Unknown 06/04/2015 Medications metroNIDAZOLE (FLAGYL) 500 MG Tablet Take 1 Tablet by mouth 3 times daily. 30 Tablet 3 Active ondansetron (ZOFRAN-ODT) 4 MG TABLET DISPERSIBLE Take 1 Tablet by mouth every 6 hours as needed for Nausea - 1st line. 10 Tablet 3 Active HYDROcodone-acet aminophen (Watkins) 10-325 MG TabletIndication s:Terminal ileitis (HCC) Take [...] Department Care Team Description 04/12/2024 6:11 AM PREPPER - 04/12/2024 7:20 AM [facility] [address] [place] [address] Alvin Vallejo MD Influenza A [...] Sex Assigned at Female 04/12/2024 6:16 AM PREPPER Legal Sex Female 9:09 AM PREPPER Gender Identity Female 04/12/2024 6:16 AM PREPPER Sexual Orientation Not on file Last Filed Vital Signs Vital Sign Reading Time Taken Comments Blood Pressure 124/77 04/12/2024 7:20 AM PREPPER Pulse 76 04/12/2024 7:20 AM PREPPER Temperature 37.3 C (99.1 F) 04/12/2024 6:15 AM PREPPER Respiratory Rate 18 04/12/2024 7:20 AM PREPPER Oxygen Saturation 99% 04/12/2024 7:20 AM PREPPER Inhaled Oxygen Concentration - - Weight 83.9 kg (185 lb) 04/12/2024 6:15 AM PREPPER Height 167.6 cm (5' 6 ) 04/12/2024 6:15 AM PREPPER Body Mass Index 29.86 04/12/2024 6:15 AM PREPPER Plan of Treatment Health Maintenance Due Date [...] A&B BY PCR STAT 04/12/2024 6:18 AM PREPPER from Last 3 Months Results * (ABNORMAL) MORRIS-COV-2 Flu RSV - (Quad PCR) (04/12/2024 6:18 AM PREPPER) FLU A Positive(A) Negative, Error 04/12/2024 7:02 AM PREPPER [facility] FLU B Negative Negative 04/12/2024 7:02 AM PREPPER [facility] RESP SYNC VIRUS Negative Negative 7:02 AM PREPPER [facility] SARSCOV2 NOT DETECTED (Reference Range for this test is Not Detected) 04/12/2024 7:02 AM PREPPER [facility] Comment:This test was perfor med by a Reverse Surface To Air Weapons Officer PCR Method. Swab NASOPHARYNGEAL SWAB / Unknown Non-Phlebotomy Collection / Unknown 04/12/2024 6:18 AM PREPPER 04/12/2024 6:22 AM PREPPER us Alvin Vallejo MD MICROBIOLOGY - GENERAL ORDERABLE S Final Result [facility] [address] [place] [address] from Last 3 Months Insurance [facility] Care Teams Delivery Tech Relationship Specialty Start Date End Date Gladis Blanco APRN [address] [place] [address] PCP - General Advanced Practice Nurse 04/12/24
--- OUTSIDE RECORDS SUMMARY | 2024-05-01 08:55 | XMS_ITS | Patient Health Summary ---
Author Organization [facility] [facility] Address [address] [place] [address] Care Team Providers Care Federal Appellate Law Clerk Name Role Phone Darinel Knott MD Primary Care Provider [phone] Note from [facility],non-owned Affiliates and Associated Physician Practices is amultiple site organization consisting of ambulatory clinics and hospital sitesin [place], [place], [place] and [place]. This disclosure is being madepursuant to the Care Everywhere program and may not contain all information available regarding this patient. Last updated 17.[facility] Allergies * Sulfamethoxazole W-Trimethoprim(Anaphylaxis) -High Criticality Medications [...] Comments Blood Pressure 130/88 01/11/2023 10:20 AM FLYER MAKER Pulse 94 01/11/2023 10:20 AM FLYER MAKER Temperature 36.2 C (97.1 F) 01/11/2023 10:20 AM FLYER MAKER Respiratory Rate - - Oxygen Saturation 100% 01/11/2023 10:20 AM FLYER MAKER Inhaled Oxygen Concentration - - Weight 96.6 kg (213 lb) 01/11/2023 10:20 AM FLYER MAKER Height 167.6 cm (5' 6 ) 01/11/2023 10:20 AM FLYER MAKER Body Mass Index 34.38 01/11/2023 10:20 AM FLYER MAKER Procedures * TISSUE TRANSGLUTAMINASE AB IGA(Performed 01/11/2023) Performed for Generalized abdominal pain * C-REACTIVE PROTEIN(Performed 01/11/2023) Performed for Generalized abdominal pain * ERYTHROCYTE SEDIMENTATION RATE(Performed 01/11/2023) Performed for Generalized abdominal pain Results * TISSUE TRANSGLUTAMINASE AB IGA (01/11/2023 12:05 PM FLYER MAKER) Tissue Transglutaminase (tTG) Ab, IgA 1.40 0.00 - 4.99 FLU 01/15/2023 4:41 PM FLYER MAKER [facility] ([facility]) Comment: INTERPRETIVE INFORMATION: Tissue Transglutaminase (tTG) Antibody, [...] Lab Venipuncture / Unknown 01/11/2023 12:05 PM FLYER MAKER 01/11/2023 12:17 PM FLYER MAKER Joe Barajas MD LAB - SEROLOGY ORDER [facility] [employer] ([facility]) [address] [place] [address], [facility] * (ABNORMAL) C-REACTIVE PROTEIN (01/11/2023 12:05 PM FLYER MAKER) C-Reactive Protein 1.2(H) <=0.5 mg/dL 01/11/2023 1:24 PM FLYER MAKER [facility] Blood BLOOD SPECIMEN / Unknown Lab Venipuncture / Unknown 01/11/2023 12:05 PM FLYER MAKER 01/11/2023 12:17 PM FLYER MAKER Joe Barajas MD LAB - CHEMISTRY ORDE RABLES Performing Organization Address City/[facility]/ZIP Co de Phone Number [place] [address] [place] [address], [facility] [phone] * (ABNORMAL) ERYTHROCYTE SEDIMENTATION RATE (01/11/2023 12:05 PM FLYER MAKER) Erythrocyte Sedimentation Rate Westergren 29(H) 0 - 20 MM/HR 01/11/2023 12:35 PM FLYER MAKER [facility] Blood BLOOD SPECIMEN / Unknown Lab Venipuncture / Unknown 01/11/2023 12:05 PM FLYER MAKER 01/11/2023 12:20 PM FLYER MAKER Joe Barajas MD LAB - HEMATOLOGY ORD ERABLES [facility] [address] [place] [address], [place] [phone] Care Teams Federal Appellate Law Clerk Relationship Specialty Start Date End Date Darinel Knott MD [address] [place] [id number] PCP - General Family Medicine 01/11/23
--- NOTE | 2024-05-01 09:08 | ED_ITS ---
HPI - General Adult General Chief complaint: Urogenital-Female Stated complaint: hematuria Time Seen by Provider: 05/01/24 07:31 History of Present Illness HPI narrative: 28-year-old female present to the emergency department for evaluation for acute onset of right lower quadrant abdominal pain. Patient was having some urinary symptoms that started yesterday but she woke up this morning approximately 2:00 a.m. with intense right lower quadrant pain. Patient was very comfortable upon arrival to the emergency department. Patient does have history of Crohn's, history of PCOS and but does have a history of cholecystectomy. Patient declines any concern for STI. Related Data Home Medications ?Medication ?Instructions ?Recorded ?Confirmed ?Last Taken ?Type omeprazole 20 mg capsule,delayed 20 mg PO BID 04/02/24 05/01/24 Unknown History release Allergies Allergy/AdvReac Type Severity Reaction Status Date / Time Sulfa (Sulfonamide Allergy Unknown Anaphylactic Verified 05/01/24 07:25 Antibiotics) Shock Review of Systems 2 Review of Systems: All systems reviewed & are unremarkable except as noted in HPI and below PMFSH Past Medical History Medical History Yeast infection of the vagina OCD (obsessive compulsive disorder) IBS (irritable bowel syndrome) Surgical History Surgical History No pertinent past surgical history Family History Family History Father Diabetes mellitus Disorder of thyroid Mother Asthma Depression Grandparent Cancer of pancreas Diabetes mellitus Grandparent Breast cancer Thyroid cancer Diabetes mellitus Depression Cerebrovascular accident Social History Social History Smoking status: Never smoker Alcohol use details: Red Wine occasionally Substance use: never Substance use type: does not use Lack of Transportation: No Lack of Food: Never True Current Housing: I Have Housing Concerned About Future Housing: No Difficulty Paying Gas/Electric Bills: No Difficulty Paying for Meds: No Currently Unemployed: No Education: Trade/Vocational Certificate Difficulty w/ Childcare or Family Care: No Living arrangements: with family Occupation/Education: occupation 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 EYES: PERRLA/EOMI, conjunctivae clear. NOSE: Normal no drainage EARS:TMS clear with good light reflex. THROAT: Pharynx clear, no exudate. NECK: Supple. No adenopathy, no masses. RESPIRATORY: Airway patent, respirations nonlabored. Clear to auscultation bilaterally, no rales, rhonchi, wheezing. CARDIOVASCULAR: Regular rate and rhythm without murmurs rubs or gallops. ABDOMINAL: Right lower quadrant tenderness to palpation MUSCULOSKELETAL: Moves all extremities. Strength/ROM intact, No edema, No calf tenderness. NEURO: Alert. Cranial nerves II through XII intact. Grossly intact SKIN: Warm, dry. Normal Color Course Vital Signs Vital signs: Vital Signs Temperature 97.4 F L 05/01/24 07:20 Pulse Rate 92 05/01/24 07:20 Respiratory Rate 20 05/01/24 07:20 Blood Pressure 120/87 05/01/24 07:20 Pulse Oximetry 98 05/01/24 07:20 Oxygen Delivery Room Air 05/01/24 07:20 Temperature 97.4 F L 05/01/24 07:20 Pulse Rate 60 05/01/24 10:41 Respiratory Rate 16 05/01/24 10:41 Blood Pressure 120/87 05/01/24 10:41 Pulse Oximetry 100 05/01/24 10:41 Oxygen Delivery Room Air 05/01/24 07:20 Medical Decision Making [facility] Narrative Medical decision making narrative: 28-year-old female presents emergency department for evaluation for acute onset of lower abdominal pain. Patient is currently afebrile. Patient has no elevated white blood cell count. No significant abnormalities on his CMP with normal T bili AST ALT alk-phos. UA was significant for urinary tract infection. Patient does have leukocyte esterase positive with greater than 100 white blood cells and +2 bacteria. Patient was very uncomfortable upon arrival and patient was provided medications for pain control closing IV Dilaudid. Patient states this did help significantly. Ultrasound ordered to evaluate for ovarian torsion or ovarian cysts in the context of PCOS. Patient had a normal pelvic ultrasound. Patient reports that she still having very focal right lower quadrant abdominal pain. CT scan was ordered to evaluate for possible acute appendicitis versus Crohn's flare. Patient was also provided Pyridium for urinary symptoms in addition to 1 g of IV Rocephin. CT was negative for acute appendicitis. Patient was updated results of workup patient was comfortable the plan for discharge and close follow-up. Differential Diagnosis Differential Diagnosis: Ovarian fibroid, ovarian torsion, acute appendicitis Vital Signs Vital Signs: Vital Signs Temperature 97.4 F L 05/01/24 07:20 Pulse Rate 92 05/01/24 07:20 Respiratory Rate 20 05/01/24 07:20 Blood Pressure 120/87 05/01/24 07:20 Pulse Oximetry 98 05/01/24 07:20 Oxygen Delivery Room Air 05/01/24 07:20 Temperature 97.4 F L 05/01/24 07:20 Pulse Rate 60 05/01/24 10:41 Respiratory Rate 16 05/01/24 10:41 Blood Pressure 120/87 05/01/24 10:41 Pulse Oximetry 100 05/01/24 10:41 Oxygen Delivery Room Air 05/01/24 07:20 Lab Data Lab results reviewed: Yes I reviewed the patient's lab results. 05/01/24 07:33 05/01/24 07:33 Labs: Lab Results 05/01/24 05/01/24 Range/Units 07:26 07:33 WBC 8.5 (4.5-10.0) K/mm3 RBC 4.96 (4.2-5.4) M/mm3 Hgb 14.3 (12.0-15.0) g/dL Hct 43.6 (37.0-47.0) % MCV 87.9 (80-100) fl MCH 28.8 (26-34) pg MCHC 32.8 (32-36) g/dl RDW 12.8 (11.5-14.5) % Plt Count 257 (150-375) k/mm3 MPV 11.0 H (7.4-10.4) fl Immature Gran % (Auto) 0.5 (0-0.5) % Neut % (Auto) 73.0 (45.5-73.1) % Lymph % (Auto) 19.8 (18.3-44.2) % [place] % (Auto) 5.6 (2.6-8.5) % Eos % (Auto) 0.9 (0-4.4) % Baso % (Auto) 0.2 (0.2-1.2) % Lymph # (Auto) 1.67 (0.9-3.2) K/mm3 [place] # (Auto) 0.5 (0.1-0.6) K/mm3 Eos # (Auto) 0.1 (0-0.3) K/mm3 Baso # (Auto) 0.0 (0.0-0.1) K/mm3 Abs Immat Gran (auto) 0.04 H (0.00-0.031) K/mm3 Absolute Neuts (auto) 6.2 (1.3-6.7) K/mm3 Absolute Nucleated RBC 0.000 (0.0-0.012) K/mm3 Nucleated RBC % 0.0 (0.0-0.2) % Sodium 139 (137-145) mmol/L Potassium 3.9 (3.4-5.0) mmol/L Chloride 103 (98-107) mmol/L Carbon Dioxide 24 (22-30) mmol/L Anion Gap 12 (4-12) mmol/L BUN 11 D (7-17) mg/dL Creatinine 0.75 (0.7-1.0) mg/dL Estim Creat Clear Calc 105 ml/min Estimated GFR > 60 (59 - ) Glucose 111 H (65-110) mg/dL Calcium 9.2 (8.4-10.2) mg/dL Total Bilirubin 0.6 (0.2-1.3) mg/dL AST 23 (14-36) U/L ALT 32 (6-35) U/L Alkaline Phosphatase 85 (38-126) U/L Total Protein 8.0 (6.3-8.2) g/dL Albumin 4.4 (3.5-5.1) g/dL Urine Color Dark yellow (Yellow) Urine Appearance Cloudy H (Clear) Urine pH 6.0 (5.0-9.0) Ur Specific [place] > 1.045 H (1.001-1.035) Urine Protein 2+ H (Negative) mg/dL Urine Glucose (UA) Negative (Negative) mg/dL Urine Ketones Trace H (Negative) mg/dL Ur Blood (Man) 2+ H (Negative) Urine Nitrate Negative (Negative) Urine Bilirubin Negative (Negative) Urine Urobilinogen 1.0 (<2.0) mg/dL Leukocyte Esterase Rfl 1+ H (Negative) SIVAN/UL Urine RBC 11-20 H (0-2) /hpf Urine WBC >100 H (0-3) /hpf Ur Squamous Epith Cells Moderate (Few) /hpf Urine Bacteria 2+ H /hpf Urine Casts 0-2 POC Urine HCG, Qual Negative (Negative) Imaging Data Radiologist's impression: Impressions Pelvic/Transvag US 05/01/24 08:47 IMPRESSION: 1. Normal pelvis. Abdomen/Pelvis CT 05/01/24 09:37 IMPRESSION: 1. Mild terminal ileitis most suspicious for Crohn's disease but with differential including infection. Discharge Plan Discharge Clinical Impression: Urinary tract infection, Abdominal pain Patient Disposition: Home, Self-Care Condition: Stable Instructions: Antibiotic Form Additional Instructions: Antibiotic as directed. Tylenol and ibuprofen for pain control. Pyridium as needed for urinary symptoms. Zofran as needed for nausea control. If you have any worsening symptoms and please call or return to the emergency department. Patient Language: Mozambican Prescriptions: New ondansetron 4 mg tablet,disintegrating 4 mg PO Q8H PRN (Reason: nausea and vomiting) Qty: 14 0RF phenazopyridine [Pyridium] 100 mg tablet 100 mg PO TID PRN (Reason: pain) Qty: 6 0RF cephalexin 500 mg capsule 500 mg PO Q8H 7 Days Qty: 21 0RF No Action omeprazole 20 mg capsule,delayed release(DR/EC) 20 mg PO BID buspirone 10 mg tablet 10 mg PO TID Qty: 90 3RF escitalopram oxalate [Lexapro] 5 mg tablet 5 mg PO .q hs Qty: 90 1RF Follow-up/Referrals: Gladis Blanco APRN [Primary Care Provider] -
[2024-05-01] MEDS: PHENAZOPYRIDINE HCL 100 MG TABLET 200 MG PO (09:24)
[2024-05-01 09:25] VITALS: BP 124/83; PULSE 86; RESP 16; O2SAT 99
[2024-05-01] MEDS: SODIUM CHLORIDE 0.9% IV 1,000 ML 999 ML IV CONT (09:25)
--- NOTE | 2024-05-01 09:29 | PC.NURSE ---
Patient c/o upset stomach. made aware.
[2024-05-01 10:41] VITALS: BP 120/87; PULSE 60; RESP 16; O2SAT 100
== END 2024-05-01 10:44 | disposition home or self-care (01) ==
PROVIDERS: Emergency Provider Emergency Medicine; PCP Nurse Practitioner Adult Health
DX: N39.0 Urinary tract infection, site not specified (principal); R10.31 Right lower quadrant pain; E28.2 Polycystic ovarian syndrome; K50.90 Crohn's disease, unspecified, without complications; Z90.49 Acquired absence of other specified parts of digestive tract; R93.3 Abnormal findings on diagnostic imaging of other parts of digestive tract; Z79.899 Other long term (current) drug therapy
CPT/HCPCS: 36415; 74177; 76830; 76856; 80053; 81001; 81025; 85025; 96365; 96375; 96376; 99284; A9270; J0696; J1171; J2405; J7030; Q9967

== ENCOUNTER 2024-12-13 08:02 | Emergency (ER) | payer BC, SELFPAY ==
--- OUTSIDE RECORDS SUMMARY | 2015-04-15 11:29 | XMS_ITS | Continuity of Care Document ---
Author Organization [facility] Address [address] [place] [address] Phone Care Team Providers Care Senior Policy Associate Name Role Phone Zion Alex MD Unavailable Unavailable Allergies, Adverse Reactions, Alerts Substance Reaction Status Criticality Sulfa (Sulfonamide Antibiotics) Active No Information Medications Medication Instructions Dosage Effective Dates (start - stop) Status Comments ZEGERID (unknown strength) take 1 packet by oral route every day dissolved in 1-2 tablespoons of water on an empty stomach Not Available - Active DEPO-PROVERA (unknown strength) inject 1 milliliter by intramuscular route every month Not Available - Active Anusol-HC 25 mg rectal suppository insert 1 suppository by rectal route 2 times every day for 2 weeks 25 MG - No Longer Active Advance Directives Directive Yes / No Effective Date File Name No Information Encounters Encounter Description Practice Location Reason(s) For Visit Diagnoses Date Provider Providers Copied on Encounter [facility], [address], [place], [place], [id number] , tel: [phone] [facility] No Information [address] [place], [address], [place]. tel: [phone] [facility], [address], [place], [place], [id number] , tel: [phone] [facility] Abdominal pain (chief complaint) GI bleeding (chief complaint) Diarrhea (chief complaint) Abdominal pain, epigastricBlood in stoolIrritable bowel syndrome with diarrhea 0 [address] [place], [address], [place]. tel:[phone] Referring Provider: Zion Alex, [address] [facility], [place], [address]. tel:[phone] Family History Family Member Type Diagnosis Age At Onset No Information Payers Payer name Insurance type Covered libertarian ID Dawit arvizu(s) CANDELARIO O CI [id number] Social History Type Description Quantity Date Captured Comments Sex Female Smoking Status No Information Chief Complaint And Reason For Visit No Information Reason For Referral Reason For Referral No Information History Of Present Illness Encounter Date Complaint History Of Prese nt Illness GI bleeding (comments) has blood in stool. this year. some days. once a month. told had fissure in ER. No pain with BM. No hard stool. Diarrhea Pertinent negati ves include abdominal pain, fever, joint pain, nausea, vomiting and weight loss. Diarrhea (comments) 3-4 BM per d ay, occurs several times amonth. has bloating. discomfort not localized, seperate from epigastric pain. not worse with dairty products , no specific food trigger, Abdominal pain GI bleeding Abdominal pain (comments) epigas tric pain, for over 5 years. says had as a child too. recent had CCY.in 2013. low GB EF , no stones. some improvement. intesnsity 07/05. eating makes worse. No NSAIDS. no heartburn , but on zegrid. no dysphagia. omperazol did not help. no EGD done. weight stable. no specific diagnosis as child, no celiac disease, cystic fibrosis. normal mile stones. Functional Status Date Functional Assessmen t No Information Medications Administered Medication Instructions Dosage Effective Dates (start - stop) Status Comments No Drug Therapy Prescribed Instructions Date Instruction Additional Infor wale ansol HC supp one MD BIDIf not improving may need colonoscopy Related to Blood in stool Upper endoscopy sche duled, risk, benefits, alternatives explained.continue Zegridavoid NSAIDSneed to get labs from [facility] for review Related to Abdominal pain, epigastric check CBC, CMP, lipa seimodium PRNmay need colonoscopy, trial of Viberzi ?patient will bring labs from [facility] for review ( had kidney stones probably unrelated )FODMAP diet papers givenSB Bx at time of EGD Related to Irritable bowel syndrome with diarrhea Handout Assessments Type Assessment Date No Information Patient Care Teams Name Effective Dates (start - stop) Status Members No Information
--- OUTSIDE RECORDS SUMMARY | 2015-04-15 11:29 | XMS_ITS | Continuity of Care Document ---
Author Organization [facility] Address [address] [place] [address] Phone Care Team Providers Care Sand Control Worker Name Role Phone Zion Alex MD Unavailable [...] Diagnoses Date Provider Providers Copied on Encounter [facility], [address], [place], [place], [id number] , tel: [phone] [facility] No Information [address] [place], [address], [place]. tel: [phone] [facility], [address], [place], [place], [id number] , tel: [phone] [facility] Abdominal pain (chief complaint) GI bleeding (chief complaint) Diarrhea (chief complaint) Abdominal pain, epigastricBlood in stoolIrritable bowel syndrome with diarrhea 0 6 [address] [place], [address], [place]. tel:[phone] Referring Provider: Zion Alex, [address] [facility], [place], [address]. tel:[phone] Family History Family Member Type Diagnosis Age At Onset No Information Payers Payer name Insurance type Covered alliance party ID Dawit arvizu(s) CANDELARIO O CI [id number] Social History Type Description Quantity Date Captured [...] explained.continue Zegridavoid NSAIDSneed to get labs from [facility] for review Related to Abdominal pain, epigastric check CBC, CMP, lipa seimodium PRNmay need colonoscopy, trial of Viberzi ?patient will bring labs from [facility] for review ( had kidney stones probably unrelated )FODMAP diet papers givenSB Bx at time of EGD Related to Irritable bowel syndrome with diarrhea Handout Assessments Type Assessment Date No Information Patient Care Teams Name Effective Dates (start - stop) Status Members No Information
[2024-12-13 08:05] VITALS: BP 127/63; PULSE 96; RESP 20; TEMP 36.3; O2SAT 100
--- NOTE | 2024-12-13 08:05 | ED_ITS ---
HPI - General Adult General Chief complaint: Ear Stated complaint: ear pain Time Seen by Provider: 12/13/24 08:10 Source: patient, RN notes reviewed and old records reviewed Mode of arrival: ambulatory Limitations: no limitations History of Present Illness HPI narrative: 29-year-old female presents to the [facility] with complaints of right ear pain. Symptoms started Sunday, 3 days ago. Has tried Tylenol. No other treatment prior to arrival. Denies fevers. Denies congestion. Denies putting anything in the ear LMP 10/30/24 about 7 weeks Related Data Home Medications ?Medication ?Instructions ?Recorded ?Confirmed ?Last Taken ?Type risankizumab-rzaa 360 mg/2.4 mL mg subcut 12/13/24 Un known History (150 mg/mL) subcut wearable injector (Skyrizi) Allergies Allergy/AdvReac Type Severity Reaction Status Date / Time Sulfa (Sulfonamide Allergy Unknown Anaphylactic Verified 12/13/24 08:09 Antibiotics) Shock Review of Systems Review of Systems: All systems reviewed & are unremarkable except as noted in HPI and below Constitutional: Constitutional: Reports no additional constitutional complaints ENT: Reports as per HPI, Denies ear discharge and Reports otalgia (right) Cardiovascular: Cardiovascular: Reports no additional cardiovascular complaints, Denies chest pain and Denies dyspnea Respiratory: Respiratory: Reports no additional respiratory complaints, Denies chest congestion, Denies cough and Denies dyspnea Musculoskeletal: Musculoskeletal: Reports no additional musculoskeletal complaints Integumentary/Breasts: Skin/Breast: Reports system reviewed and no additional complaints, except as docu PMFSH Past Medical History Medical History Yeast infection of the vagina OCD (obsessive compulsive disorder) IBS (irritable bowel syndrome) Surgical History Surgical History No pertinent past surgical history Family History Family History Father Diabetes mellitus Disorder of thyroid Mother Asthma Depression Grandparent Cancer of pancreas Diabetes mellitus Grandparent Breast cancer Thyroid cancer Diabetes mellitus Depression Cerebrovascular accident Social History Social History Smoking status: Never smoker Alcohol use details: Red Wine occasionally Substance use: never Substance use type: does not use Lack of Transportation: No Lack of Food: Never True Current Housing: I Have Housing Concerned About Future Housing: No Difficulty Paying Gas/Electric Bills: No Difficulty Paying for Meds: No Currently Unemployed: No Education: Trade/Vocational Certificate Difficulty w/ Childcare or Family Care: No Living arrangements: with family Occupation/Education: occupation 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 There is no relevant family history pertinent to the patient complaint. Exam Const: General: cooperative, no acute distress, well developed, alert, tired appearing, uncomfortable and well nourished Nutritional Appearance: well nourished Orientation/consciousness: patient oriented x3 Limitations: no limitations HENMT: Head: normal to inspection Ears: hearing grossly normal bilaterally, external ears normal, mastoids normal, no periauricular adenopathy, Abnormal EAC present erythema on the right, edema on the right and EAC tenderness on the right and TM abnormal bulging on the right, erythematous on the right and with loss of landmarks on the right Face/Nose/Sinus: Normal external nose present and Normal nasal mucous membranes and turbinates present Mouth: Yes Normal oral and palatal mucosa present, Yes lip normal, Yes tongue normal and Yes moist mucous membranes abnormal Throat: posterior oropharynx normal, uvula midline and no uvular edema Eyes: General: appearance normal, both eyes and all related structures Alignment and Position: alignment normal Neck: Neck: normal visual inspection, full ROM, no lymphadenopathy and no meningeal signs Chest: Chest palpation & inspection: normal inspection of the chest Resp: Effort & Inspection: normal respiratory effort and able to speak in complete sentences Auscultation: clear to auscultation bilaterally, no crackles, no rales, no rhonchi and no wheezes Cardio: Rate: regular rate Skin: General skin exam: normal color and no rashes or lesions noted Neuro: General: patient oriented x3, gait normal, moves all extremities and no meningeal signs Cognition (Neuro): normal cognition Speech: normal speech Gait exam (Neuro): Normal gait present Extrem: General: normal to inspection, full ROM, capillary refill normal and normal gait Psych: Appearance: grossly normal and well kempt Mental Status: mental status grossly normal Speech and movement: Normal speech and movement present and Clear speech present Affect: normal affect Attitude: cooperative Course Course Level of Care: Express Care Visit Vital Signs Vital signs: Vital Signs Temperature 97.4 F L 12/13/24 08:05 Pulse Rate 96 12/13/24 08:05 Respiratory Rate 20 12/13/24 08:05 Blood Pressure 127/63 12/13/24 08:05 Pulse Oximetry 100 12/13/24 08:05 Oxygen Delivery Room Air 12/13/24 08:05 Temperature 97.4 F L 12/13/24 08:05 Pulse Rate 96 12/13/24 08:05 Respiratory Rate 20 12/13/24 08:05 Blood Pressure 127/63 12/13/24 08:05 Pulse Oximetry 100 12/13/24 08:05 Oxygen Delivery Room Air 12/13/24 08:05 Reviewed Medical Decision Making MDM Narrative Medical decision making narrative: Patient sitting in exam room. Patient is nontoxic, vitals are stable. Patient presents with 3 day history of right ear pain. Erythema noted to both the TM and the ear canal as well as inflammation of the ear canal. Will prescribe both Augmentin and Cipro drops. Patient is approximately 7 weeks . Cipro drops are not systemic, very low risk for fetus. Patient is appropriate for outpatient treatment with close follow-up Discharge instructions reviewed with patient, as well as provided in writing per nursing staff. The instructions also include specific and strict return/GO TO THE ER as well as f/u information. All questions have been answered, and the patient deny any further questions with discharge and discharge plan. Some parts of this dictation were generated by voice recognition software and may contain typographical and/or grammatical inaccuracies. Differential Diagnosis Differential Diagnosis: URI, serous otitis, otitis media, otitis externa Medical Records Medical records reviewed: Yes I reviewed the external patient's medical records. Vital Signs Vital Signs: Vital Signs Temperature 97.4 F L 12/13/24 08:05 Pulse Rate 96 12/13/24 08:05 Respiratory Rate 20 12/13/24 08:05 Blood Pressure 127/63 12/13/24 08:05 Pulse Oximetry 100 12/13/24 08:05 Oxygen Delivery Room Air 12/13/24 08:05 Temperature 97.4 F L 12/13/24 08:05 Pulse Rate 96 12/13/24 08:05 Respiratory Rate 20 12/13/24 08:05 Blood Pressure 127/63 12/13/24 08:05 Pulse Oximetry 100 12/13/24 08:05 Oxygen Delivery Room Air 12/13/24 08:05 Reviewed Lab Data Lab results reviewed: Yes I reviewed the patient's lab results. Labs: Reviewed Critical Care Time Critical Care Time Critical Care Time: No Discharge Plan Discharge Clinical Impression: Acute right otitis media, Otitis externa of right ear Patient Disposition: Home Condition: Stable Instructions: Antibiotic Form, Swimmer's Ear (AC), Ear Infection (ED) Additional Instructions: Take antibiotic as prescribed Use ear drops as prescribed Taking an allergy medication such as Zyrtec preferably the one with Sudafed in it will help with drying up some of the fluid that is behind the ear Cold and Flu Symptoms --Tylenol (regular or extra Strength) Fever (call if over 101?)--Tylenol (regular or extra Strength) Nasal Drainage/Head Congestion--Chlor-Trimeton, Sudafed, Tavist,Tylenol Sinus Cough--Robitussin, Delsym Sore Throat--Chloraseptic, Cepacol lozenges Allergy Symptoms--Bendryl, Zyrtec, Zyrtec D, Claritin, Claritin D Nausea--Emetrol, Vitamin B6 Tablets, Courtney, Courtney Tea, Preggie Pops, B-Jorge Suckers Constipation--Milk of Magnesia, Metamucil, Fiberall, Konsyl, Colace (Docusate Sodium Diarrhea--Imodium, Kaopectate, Follow BRAT diet: bananas, rice, applesauce, tea/toast Heartburn--Maalox, Mylanta, TUMS, Prilosec OTC, Zantac, Tagment, Prevacid, Pepcid Hemorrhoids--Tucks Pads, Anusol, Preparation H, warm sitz baths Patient Language: Eritrean Prescriptions: New amoxicillin-pot clavulanate 875-125 mg tablet 1 tablet PO Q12H Qty: 20 0RF ciprofloxacin HCl 0.3 % drops See Rx Instructions EACH EYE .COMPLEX Qty: 2.5 0RF Rx Instructions: Place 4 drops in right ear twice daily for 7 days No Action Skyrizi 360 mg/2.4 mL (150 mg/mL) wearable injector SUBCUT Follow-up/Referrals: Gladis Blanco APRN [Primary Care Provider, Family Practice] - 2 Weeks Time of Disposition: 08:21
--- OUTSIDE RECORDS SUMMARY | 2024-12-13 08:05 | XMS_ITS | Encounter Summary ---
Author Organization [facility] Address [facility] [place] [address] Care Team Providers Care Crts Name Role Phone Darlene Long MD Primary Care Provider Unavailable None, Provider Primary Care Provider Unavaila Darinel Baugh MD Primary Care Provider [phone] Encounter Details Date Type Department Care Team (Late st Contact Info) Description 10/18/2015 Abstract [facility] Conversion Julio Morton MD [address] [id number] Social History Tobacco Use Types [...] CDT Oct 18, 2015 Leonel Estrada [address] [place] [address] Dear Leonel Estrada, Thank you for choosing [facility] for your health care needs. We appreciate the opportunity to help you maintain your well being. You recently had a TB quantiferon gold test drawn and a varicella titer. Your TB results came back normal (negative) and your varicella results came back showing that you are immune . If you have any questions please feel free to call the office at [phone], Option #3or Option #1 to make an appointment to discuss these results. Respectfully Yours, Electronically Signed by: Julio Morton MD Cc: Patient?s Medical Record [employer] HIRE SALES ASSISTANT documented in this encounter Plan of Treatment Not on file documented as of this encounter Visit Diagnoses Not on filedocumented in this encounter Additional Health Concerns Infection Onset Date Last Indicated Resolved Time MRSA 10/05/2016 10/05/2016 documented as of this encounter Care Teams Crts Relationship Specialty Start Date End Date Md Generic Conversion, PCP - General 03/07/14 None, Provider, PCP - General 09/06/18 12/24/22 Darinel Knott MD [address] [place] [id number] PCP - General 12/25/22 documented as of this encounter
--- OUTSIDE RECORDS SUMMARY | 2024-12-13 08:05 | XMS_ITS | Clinical Summary ---
Author Organization [facility] [address] [facility] Address [address] [place] [address] Care Team Providers Care Production Broaching Machine Operator Name Role Phone Gladis Blanco FABIEN Primary Care Provider [phone] Allergies Active Allergy Reactions Criticality Noted Date Comments Sulfa (Sulfonamide Antibiotics) Hives Medium 09/2015 Medications dicyclomine (BENTYL) 20 mg tablet TAKE ONE TABLET BY MOUTH EVERY 6 HOURS 1 Active famotidine (PEPCID) 20 mg tablet Take 1 tablet (20 mg total) by mouth 2 (two) times a day Active NOT IN DATABASE, PRESCRIPTION, Drug name: Deneen Alexis Dose: 1 packet Route: oral Frequency: daily Active omeprazole (PriLOSEC) 20 mg capsule Take 1 capsule (20 mg total) by mouth 2 (two) times a day before breakfast and dinner 60 capsule 3 4 Active ALPRAZolam (XANAX) 0.25 mg tabletIndications: Anxiety Take 1 tablet (0.25 mg total) by mouth once for 1 dose 30 minutes prior to imaging on 03.29.2024 1 tablet 5 Active cholecalciferol (VITAMIN D-3) 79463 unit tabletIndications: Vitamin D Deficiency Take 1 tablet (50,000 Units total) by mouth once a week 8 tablet 5 Active cholecalciferol (Vitamin D3) 2000 unit tabletIndications: Vitamin D Deficiency Take 1 tablet (2,000 Units total) by mouth daily 30 tablet 3 5 Active risankizumab-rzaa (Skyrizi) 360 mg/2.4 mL (150 mg/mL) wearable injectorIndication s:Crohn's Disease Inject 360 mg under the skin every 8 (eight) weeks First OBI dose will be due 08/14/2024 and then every 8 weeks thereafter. 2.4 mL 2 5 Active ondansetron ODT (ZOFRAN-ODT) 4 mg disintegrating tabletIndications: Nausea and vomiting, unspecified vomiting type Take 1 tablet (4 mg total) by mouth every 8 (eight) hours as needed for nausea or vomiting 18 tablet 2 5 08/07/19 26 Active colesevelam (WELCHOL) 625 mg tabletIndications: Chronic diarrhea 1-2 tabs up to twice daily for diarrhea 90 tablet 1 5 Active budesonide EC (ENTOCORT EC) 3 mg 24 hr capsule Take 3 capsules (9 mg total) by mouth every morning for 30 days. 90 capsule 5 Active Active Problems Problem Noted Date Diagnosed Date Nausea and vomiting 08/06/2024 Assessment & Plan (08/06/2024 5:05 PM CDT): The patient responds to Zofran so we will offer her refills. She can use Zofran when she is queasy rather than waiting until she has vomiting. Crohn's disease of small intestine without compl ication 05/01/2024 Overview (08/06/2024): Year of diagnosis: 2023. Year symptoms began: Childhood?. Phenotype: Inflammatory (B1) without perianal disease. Distribution: ileal (L1) without upper GI disease (L4). Extraintestinal manifestations: None. Complications: None. Prior surgeries: None. Prior treatments: Budesonide. Current treatment: Skyrizi (started 05/22/2024). TPMT: Struggled with diarrhea and intermittent nausea since childhood Diarrhea became more chronic after 2013 cholecystectomy 10/2018 colonoscopy for weight loss, diarrhea and hematochezia: Unremarkable 2019 developed C diff treated with vancomycin 04/2022 presented to the ER with diarrhea and abdominal pain with CT scan showing ileitis that was treated with Cipro and Flagyl 02/19/2024 EGD showed a superficial esophageal ulcer at the GE junction, single sessile polyp in the gastric body otherwise normal-appearing stomach and duodenal mucosa. Pathology showed inactive chronic gastritis, fundic gland polyp, and no abnormalities in the duodenum. 02/19/2024 colonoscopy showed a normal colon, hypertrophied anal papillae, and erosions, congestion, friability and stricture in the distal 5 cm of the terminal ileum. Proximal to this the mucosa appeared normal. Pathology of the terminal ileum showed acute and chronic inflammation with architectural distortion but no histopathological abnormalities in the large intestine. 03/29/2024 MR enterography showed small diverticula in the colon, wall thickening and enhancement involving 4 cm the terminal ileum with luminal narrowing within the proximal bowel loop, no perianal disease, multiple ovarian follicles Treated with budesonide with substantial improvement in symptoms 05/22/2024 Received 1st dose of Skyrizi Assessment & Plan (08/06/2024 5:03 PM CDT): The patient appears to be making progress on Skyrizi. She is due for her 1st on body injection next week. We would like her to continue with Skyrizi for the foreseeable future. We would like to assess her response to therapy with an MR enterography 6 months after starting medication (October) and a colonoscopy a year after her last 1 (2025) Assessment & Plan (05/01/2024 4:06 PM ENROLLMENT REPRESENTATIVE): The patient appears to have ileal Crohn's disease. We would like to continue budesonide as a bridge and submit for Skyrizi based on its safety and efficacy. We will get on morning labs today including CBC, CMP, CRP, T spot, hepatitis-B serology, vitamin D , B12, and iron stores Once she has been on therapy for least 6 months, we would plan for repeat evaluation of response High risk medications (not anticoagulants) long- term use 05/01/2024 Assessment & Plan (08/06/2024 5:06 PM CDT): We will monitor the patient's labs at least every 6 months on immunosuppression. She should follow closely with her care team. We do recommend vaccination for pneumonia, shingles, flu and advised against live vaccines. Assessment & Plan (05/01/2024 4:07 PM ENROLLMENT REPRESENTATIVE): All immunosuppressants carry a theoretical risk of infection, though risankizumab is among the safest. We recommend the patient get all available vaccinations, including the pneumococcus series, covid19 and annual influenza. We monitor CBC and HFP q 3 months for cytopenias and hepatotoxicity. Gastroesophageal reflux disease without esophagi tis 01/30/2024 Assessment & Plan (05/01/2024 11:15 AM ENROLLMENT REPRESENTATIVE): The patient can continue famotidine and omeprazole. She is advised to avoid NSAIDs and continue lifestyle modifications. Chronic diarrhea 01/30/2024 Assessment & Plan (08/06/2024 5:04 PM CDT): The patient likely has a component of bile salt diarrhea. She has not tolerate cholestyramine very well so we will offer her Welchol. It is not covered by her insurance but appears fairly affordable at [employer]. She can also use Bentyl as needed Assessment & Plan (05/01/2024 11:15 AM ENROLLMENT REPRESENTATIVE): Given the duration of her symptoms, she may have an overlap of bile salt diarrhea +/-IBS in addition to her Crohn's disease. As she indicates that her stools burn, she may benefit from retraining cholestyramine while we are working to control her Crohn's. Bloating 01/30/2024 Abnormal finding on GI tract [...] drink containing alc ohol? Monthly or less 08/06/2024 Q2: How many drinks containi ng alcohol do you have on a typical day when you are drinking? 3 or 4 08/06/2024 Q3: How often do you have si x or more drinks on one occasion? Never 08/06/2024 Personal Safety Answer Date Recorded Have you ever been in or are you currently in a harmful physical or emotional relationship or is someone making you feel afraid or unsafe? Denies 02/19/2024 Comments No Sex and Gender Information Value Date Recorded Sex Assigned at Not on file Legal Sex Female 12:38 AM CDT Gender Identity Female 01/30/2024 9:10 PM ENROLLMENT REPRESENTATIVE Sexual Orientation Not on file Occupation Industry [...] Sign Reading Time Taken Comments Blood Pressure 108/66 08/06/2024 8:56 AM CDT Pulse 84 08/06/2024 8:56 AM CDT Temperature 36.4 C (97.5 F) 08/06/2024 8:56 AM CDT Respiratory Rate 14 07/17/2024 2:05 PM CDT Oxygen Saturation 94% 08/06/2024 8:56 AM CDT Inhaled Oxygen Concentration - - Weight 76.9 kg (169 lb 9.6 oz) 08/06/2024 8:56 A M CDT Height 167.6 cm (5' 6) 08/06/2024 8:56 AM CDT Body Mass Index 27.37 08/06/2024 8:56 AM CDT Plan of Treatment Health Maintenance Due Date Last Done Comments Depression Screening 1994 Hepatitis C Screening 1994 HPV Vaccines (2 - 2-dose series) 05/27/2008 11/27/2007 Covid-19 Vaccine (3 - Pfizer risk series) 02/01/2021 01/04/2021, 12/08/2020 Cervical Cancer Screening 12/31/2021 12/31/2020 Regular Well Visit/Exam 18-64 12/31/2021 12/31/2020 Influenza Vaccine (#1) 2024 DTaP/Tdap/Td Vaccine (7 - Td or Tdap) 09/07/2025 09/08/2015, 10/01/2006, 12/06/1995, Additional history exists Varicella Vaccines Completed 10/13/1998, 12/06/1995 Hepatitis B Screening Completed 04/30/2024 , 03/27/1995, 1994, Additional history exists Pneumococcal vaccine <65 Aged Out 04/30/2024 No longer eligible based on patient's age to complete this topic Procedures Procedure Name Priority Date/Time Associated Diagnosis Comments THINPREP TIS PAP REFLEX HPV MRNA E6/E7, CHLAMYDIA/N.GONORRH OEAE Routine 12/31/2020 12:00 AM CDT from Last 3 Months or Most Recently Relevant to Health Maintenance Results * THINPREP TIS PAP REFLEX HPV mRNA E6/E7, CHLAMYDIA/N.GONORRHOEAE (12/31/2020 12:00 AM CDT) CLINICAL INFORMATION: [facility] Comment:USES DEPO PROVERA LMP [facility] Comment:UNKNOWN Previous Pap [facility] Comment:INFORMATION NOT PROV IDED Prev. Bx [facility] Comment:INFORMATION NOT PROV IDED SOURCE: [facility] Comment:Cervix, Endocervix Pap, specimen adequacy [facility] Comment: Satisfactory for evaluation. Endocervical/transformation zone component present. HPV interp [facility] Comment:Negative for intraep ithelial lesion or malignancy. COMMENTS [facility] Comment: This Pap test has been evaluated with computer assisted technology. Electromedical Service Engineer Que [facility] Comment: MVB, CT(ASCP) CT screening location: [place] [address] [place], [place] [address] Comment [facility] Comment: EXPLANATORY NOTE: The Pap is [...] C. trachomatis RNA NOT DETECTED NOT DETECTED [facility] N. gonorrhoeae RNA NOT DETECTED NOT DETECTED [facility] Comment [facility] Comment: The analytical performance characteristics of this assay, when used to test SurePath(TM) specimens have been determined by [facility]. The modifications have not been cleared or approved by the FDA. This assay has been validated pursuant to the CLIA regulations and is used for clinical purposes. For additional information, please refer to https://education.[employer]/faq/DHQ607 (This link is being provided for information/ educational purposes only.) 12/31/2020 01/03/2021 10: 17 AM ENROLLMENT REPRESENTATIVE Narrative [facility] - 01/06/2021 3:15 PM ENROLLMENT REPRESENTATIVE FASTING: UNKNOWN Leydi Medina DO LAB PATHOLOGY ORDERABLE S Final Result [facility] [address] [place] [address] [facility] [address] [place] [address] from Last 3 Months or Most Recently Relevant to Health Maintenance Insurance [facility] [employer]AL GENERIC COPAY ASSIST [facility] FEDERAL [facility] FEDERAL Advance Directives For more information, please contact: [phone] * Full Code (Latest Code Status on File) Date Activated Date Inactivated Comments 02/19/2024 11:13 AM 02/19/2024 6:24 PM Care Teams Production Broaching Machine Operator Relationship Specialty Start Date End Date Gladis Blanco NP [address] [place] [address] PCP - General Nurse Practitioner 04/07/24
--- OUTSIDE RECORDS SUMMARY | 2024-12-13 08:05 | XMS_ITS | Clinical Summary ---
Author Organization [facility] Address [address] [place] [address] Phone Care Team Providers Care Furnace Repair Mechanic Name Role Phone Carytiffany Gladis Ivy ESTRELLA Primary Care Provider [phone] Allergies Active Allergy Reactions Criticality Noted Date Comments Sulfa Antibiotics Unknown 06/04/2015 Medications metroNIDAZOLE (FLAGYL) 500 MG Tablet Take 1 Tablet by mouth 3 times daily. 30 Tablet 3 Active ondansetron (ZOFRAN-ODT) 4 MG TABLET DISPERSIBLE Take 1 Tablet by mouth every 6 hours as needed for Nausea - 1st line. 10 Tablet 3 Active HYDROcodone-acet aminophen (Warren) 10-325 MG TabletIndication s:Terminal ileitis Take 0.5 Tablets by mouth every 4 hours as needed for Moderate or more severe pain. 10 Tablet 3 Active ondansetron (ZOFRAN-ODT) 4 MG TABLET DISPERSIBLE Take 1 Tablet by mouth every 8 hours as needed for Nausea - 1st line. 10 Tablet 5 Active Social History Tobacco Use Types Packs/Day Years Used Date Smoking Tobacco: Never Smokeless Tobacco: Never Tobacco Cessation:Counseling Given: Not Answered Alcohol Use Standard Drinks/Week Comments Yes 0 (1 standard drink = 0.6 oz pur e alcohol) Comments No Sex and Gender Information Value Date Recorded Sex Assigned at Female 04/12/2024 6:16 AM FIELD HOCKEY AND LACROSSE COACH Legal Sex Female 9:09 AM FIELD HOCKEY AND LACROSSE COACH Gender Identity Female 04/12/2024 6:16 AM FIELD HOCKEY AND LACROSSE COACH Sexual Orientation Not on file Last Filed Vital Signs Vital Sign Reading Time Taken Comments Blood Pressure 124/77 04/12/2024 7:20 AM FIELD HOCKEY AND LACROSSE COACH Pulse 76 04/12/2024 7:20 AM FIELD HOCKEY AND LACROSSE COACH Temperature 37.3 C (99.1 F) 04/12/2024 6:15 AM FIELD HOCKEY AND LACROSSE COACH Respiratory Rate 18 04/12/2024 7:20 AM FIELD HOCKEY AND LACROSSE COACH Oxygen Saturation 99% 04/12/2024 7:20 AM FIELD HOCKEY AND LACROSSE COACH Inhaled Oxygen Concentration - - Weight 83.9 kg (185 lb) 04/12/2024 6:15 AM FIELD HOCKEY AND LACROSSE COACH Height 167.6 cm (5' 6) 04/12/2024 6:15 AM FIELD HOCKEY AND LACROSSE COACH Body Mass Index 29.86 04/12/2024 6:15 AM FIELD HOCKEY AND LACROSSE COACH Plan of Treatment Health Maintenance Due Date Last Done Comments Hepatitis C Virus (HCV) Screening 1994 Human Papillomavirus (HPV) Immunization (2 - 2-dose series) 05/27/2008 11/27/2007 Pap Smear 09/18/2015 Cervical Cancer Screening (CCS) 2024 HPV/Cotest 2024 Influenza Immunization (#1) 2024 SARS-COV-2 Immunization (3 - season) 2024 01/04/2021, 12/08/2020 Respiratory Syncytial Virus (RSV) Immunization [...] on patient's age to complete this topic Insurance [facility] Care Teams Furnace Repair Mechanic Relationship Specialty Start Date End Date Gladis Blanco APRN [address] [place] [address] PCP - General Advanced Practice Nurse 04/12/24
--- OUTSIDE RECORDS SUMMARY | 2024-12-13 08:05 | XMS_ITS | Clinical Summary ---
Author Organization [facility] Address [facility] [place] [address] Care Team Providers Care Restorer Paper And Prints Name Role Phone Darinel Knott MD Primary Care Provider [phone] Allergies Active Allergy Reactions Criticality Noted Date [...] Active Problems No known active problems Immunizations Immunization Administration Dates Next Due Dtap (Generic) 12/06/1995, [...] Comments Blood Pressure 116/74 03/28/2023 3:14 PM PAPER BUNDLER Pulse 88 03/28/2023 3:14 PM PAPER BUNDLER Temperature 36.5 C (97.7 F) 03/28/2023 3:14 PM PAPER BUNDLER Respiratory Rate 18 03/28/2023 3:14 PM PAPER BUNDLER Oxygen Saturation 100% 03/28/2023 3:14 PM PAPER BUNDLER Inhaled Oxygen Concentration - - Weight 97.5 kg (215 lb) 03/28/2023 3:14 PM PAPER BUNDLER Height 167.6 cm (5' 6) 03/28/2023 3:14 PM PAPER BUNDLER Body Mass Index 34.7 03/28/2023 3:14 PM PAPER BUNDLER Plan of Treatment Health Maintenance Due Date Last Done Comments Cervical Cancer Screening Pap Smear (Age 30 to 64) Every 3 Years 1994 Annual Physical 1997 Hepatitis A Vaccines (2 of 2 - 2-dose series) 04/03/2007 10/01/2006 HPV Vaccines (2 - 2-dose series) 05/27/2008 11/27/2007 Hepatitis C 2012 PHQ-2 (Physician [place]) 02/27/2024 03/28/2023 Cervical Cancer Screening Pap with HPV Testing (Age 30 to 64) Every 5 Years 2024 Cervical Cancer Screening with HPV 2024 COVID-19 Vaccine ( season) 2024 Influenza Adult (#1) 2024 DTaP, Tdap and Td Vaccines (7 - [...] 5 Years) and At-Risk Patients (6 to 49 Years) Aged Out No longer eligible based on patient's age to complete this topic RSV Immunizations Under 20 Months Aged Out No longer eligible based on patient's age to complete this topic Additional Health Concerns Infection Onset Date Last Indicated MRSA 10/05/2016 10/05/[address] [place] [address] [place] [address] Care Teams Restorer Paper And Prints Relationship Specialty Start Date End Date Darinel Knott MD [address] [place] [address] PCP - General 12/25/22
--- OUTSIDE RECORDS SUMMARY | 2024-12-13 08:05 | XMS_ITS | Clinical Summary ---
Author Organization [facility] Address [address] [place] [address] Care Team Providers Care Chemical Laboratory Assistant Name Role Phone Darinel Knott MD Primary Care Provider [phone] Source Comments [facility],non-owned Affiliates and Associated Physician Practices is amultiple site organization consisting of ambulatory clinics and hospital sitesin [place], [place], [place] and [place]. This disclosure is being madepursuant to the Care Everywhere program and may not contain all information available regarding this patient. Last updated 17.[facility] Allergies Active Allergy Reactions Criticality Noted Date Comments Sulfamethoxazole W-Trimethoprim Anaphylaxis High Sulfa drugs Medications * Be aware that medications may not be up to date on this document. Alwaysverify current medications with the patient. ALPRAZolam (Xanax) 0.5 MG tablet Take 1 [...] = 0.6 oz pur e alcohol) rarely Comments Unknown Sex and Gender Information Value Date Recorded Sex Assigned at Not on file Legal Sex Female 12:49 PM CDT Gender Identity Not on file Sexual Orientation Not on file Last Filed Vital Signs Vital Sign Reading Time Taken Comments Blood Pressure 130/88 01/11/2023 10:20 AM [employer] WAREHOUSE MANAGER Pulse 94 01/11/2023 10:20 AM TOBACCO WAREHOUSE MANAGER Temperature 36.2 C (97.1 F) 01/11/2023 10:20 AM TOBACCO WAREHOUSE MANAGER Respiratory Rate - - Oxygen Saturation 100% 01/11/2023 10:20 AM TOBAC[employer] WAREHOUSE MANAGER Inhaled Oxygen Concentration - - Weight 96.6 kg (213 lb) 01/11/2023 10:20 AM TOBAC[employer] WAREHOUSE MANAGER Height 167.6 cm (5' 6) 01/11/2023 10:20 AM TOBAC[employer] WAREHOUSE MANAGER Body Mass Index 34.38 01/11/2023 10:20 AM TOBAC[employer] WAREHOUSE MANAGER Plan of Treatment Health Maintenance Due Date Last Done Comments HIV SCREENING 2009 HEPATITIS C SCREENING 09/12/2012 DTAP/TDAP/TD VACCINES (1 - Tdap) 2013 HEPATITIS B VACCINE (1 of 3 - 19+ 3-dose series) 2013 PAP SMEAR 09/18/2015 HPV VACCINE (1 - 3-dose SCDM series) 2021 DEPRESSION SCREENING 02/27/2024 COVID-19 VACCINE (1 - 4-2 5 season) 2024 INFLUENZA VACCINE (#1) 2024 ZOSTER VACCINE (1 of 2) 2044 HIB VACCINE Aged Out No longer eligi ble based on patient's age to complete this topic MENINGOCOCCAL (Group B) VACC INE SHARED DECISION-MAKING Aged Out No longer eligibl e based on patient's age to complete this topic MENINGOCOCCAL GROUPS A/C/Y/W VACCINE Aged Out No longer eligible b ased on patient's age to complete this topic PNEUMOCOCCAL VACCINE Aged Out No long er eligible based on patient's age to complete this topic Insurance ANTHEM Care Teams Chemical Laboratory Assistant Relationship Specialty Start Date End Date Darinel Knott MD [address] [place] [phone] PCP - General Family Medicine 01/11/23
== END 2024-12-13 08:29 | disposition home or self-care (01) ==
PROVIDERS: Emergency Provider Nurse Practitioner; PCP Nurse Practitioner Adult Health
DX: H66.91 Otitis media, unspecified, right ear (principal); H60.91 Unspecified otitis externa, right ear
CPT/HCPCS: 99213; G0463